=== PATIENT | female | born 1995 | race Caucasian/White ===

== ENCOUNTER 2017-12-18 15:59 | Emergency (ER) | payer OTHER ==
[2017-12-18] MEDS ORDERED: TYLENOL 325 MG PO STA (16:49)
[2017-12-18] MEDS ORDERED: PROVENTIL 2.5 MG/3 ML NEB IH ONE ×2 (16:49→16:59)
[2017-12-18] MEDS ORDERED: TYLENOL 325 MG ONE (16:56)
--- NOTE | 2017-12-18 17:16 | ERPHSYRPT ---
- History of Present Illness Time Seen by Provider: 12/18/17 16:40 Source: patient, family (maxime) Patient Subjective Stated Complaint: Pt states "I feel horrible. I have been coughing for the past two days." Triage Nursing Assessment: Pt alert and oriented x 3, skin pwd. pt ambulates without difficulty, able to speak in clear full sentences. Coughing, congested. Physician History: CC: fever HX: 22 y/o patient with fever, cough, nasal congestion, body aches, sore throat for 2 days. She was worried about flu. She is a smoker. No V/D. She feels miserable. No hx of asthma or lung disease. Timing/Duration: day(s) (2) Allergies/Adverse Reactions: No Known Drug Allergies Allergy (Verified 01/18/15 22:03) Hx Tetanus, Diphtheria Vaccination/Date Given: Yes Hx Influenza Vaccination/Date Given: No Hx Pneumococcal Vaccination/Date Given: No Immunizations Up to Date: Yes - Review of Systems Constitutional: Fever, Chills, Malaise Eyes: No Symptoms Ears, Nose, & Throat: Nose Congestion Respiratory: Cough, No Dyspnea Abdominal/Gastrointestinal: No Vomiting, No Diarrhea Skin: No Rash Neurological: Headache, No Focal Weakness, No Parasthesia All Other Systems: Reviewed and Negative - Past Medical History Pertinent Past Medical History: No Neurological History: No Pertinent History ENT History: No Pertinent History Cardiac History: No Pertinent History Respiratory History: No Pertinent History Endocrine Medical History: No Pertinent History Musculoskeletal History: No Pertinent History GI Medical History: No Pertinent History History: No Pertinent History Psycho-Social History: No Pertinent History Female Reproductive Disorders: No Pertinent History - Past Surgical History Past Surgical History: No Neuro Surgical History: No Pertinent History Cardiac: No Pertinent History Respiratory: No Pertinent History Gastrointestinal: No Pertinent History Genitourinary: No Pertinent History Musculoskeletal: No Pertinent History Female Surgical History: No Pertinent History - Social History Smoking Status: Current every day smoker How long have you smoked: 8 years Exposure to second hand smoke: Yes Drug Use: none Patient Lives Alone: No - Female History Hx Last Menstrual Period: 11/15/2017 Hx Now: (HCG pending) - Nursing Vital Signs Nursing Vital Signs: Initial Vital Signs Pulse Rate 108 H 12/18/17 16:26 Respiratory Rate 20 12/18/17 16:26 Blood Pressure 133/78 12/18/17 16:26 O2 Sat by Pulse Oximetry 98 12/18/17 16:26 Pain Scale Pain Intensity 4 - Physical Exam General Appearance: alert Eye Exam: PERRL/EOMI Ears, Nose, Throat Exam: moist mucous membranes, pharyngeal erythema, No tonsillar exudate Neck Exam: normal inspection, non-tender, supple Respiratory Exam: normal breath sounds, lungs clear Cardiovascular Exam: regular rate/rhythm, tachycardia, No murmur Gastrointestinal/Abdomen Exam: soft, No tenderness, No distention Back Exam: normal inspection, No CVA tenderness Neurologic Exam: alert, oriented x 3, 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, 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, sensation nml, No motor deficits Skin Exam: warm, dry, No rash SpO2 Interpretation: normal SpO2: 100 Oxygen Delivery: Room Air - Course Nursing assessment & vital signs reviewed: Yes - Radiology Exams cxr X-ray Interpretation: Interpreted by me, No Pneumonia Ordered Tests: Active Orders 24 hr Category Date Time Status Clean Catch Urine Specimen STAT Care 12/18/17 16:48 Active CHEST 2 VIEWS (PA AND LAT) Stat Exams 12/18/17 16:49 Taken CULTURE,URINE Stat Lab 12/18/17 17:30 Received HCG,QUALITATIVE URINE Stat Lab 12/18/17 16:48 Completed UA W/ MICROSCOPIC Stat Lab 12/18/17 17:30 Completed Respiratory Nebulizer STAT RT 12/18/17 16:49 Completed Medication Summary Discontinued Medications Generic Name Dose Route Start Last Admin Trade Name Freq PRN Reason Stop Dose Admin Acetaminophen 975 mg 12/18/17 16:49 12/18/17 16:57 Tylenol 325 Mg PO 12/18/17 16:50 975 mg STAT STA Administration Acetaminophen Confirm 12/18/17 16:56 Tylenol 325 Mg Administered 12/18/17 16:57 Dose 975 mg .ROUTE .STK-MED ONE Albuterol Sulfate 2.5 mg 12/18/17 16:49 12/18/17 17:01 Proventil 2.5 Mg/3 Ml Neb IH 12/18/17 16:50 2.5 mg STAT ONE Administration Albuterol Sulfate Confirm 12/18/17 16:59 Proventil 2.5 Mg/3 Ml Neb Administered 12/18/17 17:00 Dose 2.5 mg IH .STK-MED ONE Lab/Rad Data: Laboratory Results 12/18/17 12/18/17 Range/Units 17:30 16:48 Ur Collection Type CCMS Urine Color YELLOW (YELLOW) Urine Appearance HAZY (CLEAR) Urine pH 6.0 (5-6) Ur Specific [place] 1.020 (1.005-1.025) Urine Protein NEGATIVE (Negative) Urine Ketones TRACE (NEGATIVE) Urine Blood 50 (0-5) Nestor/ul Urine Nitrite NEGATIVE (NEGATIVE) Urine Bilirubin NEGATIVE (NEGATIVE) Urine Urobilinogen 8 (0-1) mg/dL Ur Leukocyte Esterase TRACE (NEGATIVE) Urine Microscopic RBC 5-10 (0-2) /HPF Urine Microscopic WBC 0-2 (0-5) /HPF Ur Epithelial Cells MODERATE (FEW) /HPF Urine Bacteria FEW (NEGATIVE) /HPF Urine Culture Reflexed YES (NO) Urine Glucose NEGATIVE (NEGATIVE) mg/dL Urine HCG, Qual NEGATIVE (Negative) Specimen Received 12-18-17 1815 - Progress Progress Note: 12/18/17 18:25 She is taking po fluids. She has influenza like syndrome. Fever better with APAP. Discussed tamiflu pros and cons and she decided against. Will release with flu instructions. Counseled pt/family regarding: lab results, diagnosis, need for follow-up, rad results, smoking cessation - Departure Time of Disposition: 18:26 Departure Disposition: Home Clinical Impression: Influenza-like syndrome Condition: Stable Critical Care Time: No Referrals: SAURABH CASTAÑEDA MD [Primary Care Provider] - Instructions: Flu, Adult (DC) Additional Instructions: UPPER RESPIRATORY INFECTIONS 1. The signs and symptoms of a cold may last up to 10 days. These illnesses are due to viruses which are not treatable with antibiotics. 2. The following suggestions can aid in recovery and to minimize symptoms: A. Increase fluid intake. B. Acetaminophen or Ibuprofen as directed. C. Avoid smoking environments as this will increase the risk of developing pneumonia. D. For children, may use a cool mist vaporizer in the child's room. 3. Contact your Family Physician if you note: A. Persisten fever >103 for more than 3 days B. Breathing difficulty C. Productive cough of yellow/green sputum D. Illness greater than 7 days E. Persistent vomiting F. Stiff neck Rx albuterol MDI. Rx ibuprofen. Return for problems or concerns. Prescriptions: Ibuprofen 600 mg PO Q6H PRN PRN #24 tablet PRN Reason: Pain Albuterol Sulfate [Albuterol Sulfate Hfa] 2 puff IH Q4-6HPRN PRN #1 [id number] PRN Reason: cough or wheeze
[2017-12-18 18:16] LABS: Appearance HAZY (CLEAR); Glucose NEGATIVE (NEGATIVE); Ketones TRACE (NEGATIVE); Leukocyte Esterase TRACE (NEGATIVE); Nitrite NEGATIVE (NEGATIVE); Protein,Urine Dip NEGATIVE (Negative)
[2017-12-18 18:17] LABS: Bacteria FEW /HPF (NEGATIVE); Bilirubin NEGATIVE (NEGATIVE); Blood 50 Ery/ul (0-5); Epithelial Cells MODERATE /HPF (FEW); Urobilinogen 8 mg/dL (0-1); WBC 0-2 /HPF (0-5)
[2017-12-18 18:26] VITALS: BP 110/70; PULSE 89
[2017-12-18 18:28] VITALS: O2SAT 100
--- NOTE | 2017-12-19 08:49 | XRAY ---
Indication: Fever, cough, and flu. Comparison: January 18, 2015. PA/lateral chest again demonstrates normal heart and lungs. Bony thorax intact with mild pectus excavatum deformity.
== END 2017-12-18 18:35 | disposition home or self-care (01) ==
LOC: ED 15:59
DX: J11.1 Influenza due to unidentified influenza virus with other respiratory manifestations (principal)
CPT/HCPCS: 71046; 81000; 84703; 87086; 94150; 94640; 99284; A9270-GY

== ENCOUNTER 2019-04-17 04:56 | Emergency (ER) | payer MEDICAID, OTHER ==
[2019-04-17] MEDS ORDERED: Zofran 4 MG/2 ML VIAL ONE (05:14)
[2019-04-17] MEDS ORDERED: Sodium Chloride 0.9% 1000 ML 1,000 ML IV STA ×2 (05:15→07:25)
[2019-04-17] MEDS ORDERED: Pepcid 20 MG VIAL IV ONE ×2 (05:15→05:20)
[2019-04-17] MEDS ORDERED: Hydromorphone 1 mg/ml Ampule IV ONE ×2 (05:15→06:15)
[2019-04-17] MEDS ORDERED: Zofran 4 MG/2 ML VIAL IV ONE (05:15)
--- NOTE | 2019-04-17 05:16 | ERPHSYRPT ---
- History of Present Illness Historian: patient, family Exam Limitations: no limitations Patient Subjective Stated Complaint: pt states she woke up with abd pain tonight. states she has been having pain off and on this week and was seen in the er at [facility] several days ago Triage Nursing Assessment: pt alert and oriented, asnwers questions approp. pt ambulate from wheelchair to stretcher with no dificulty. respirations nonlabored. pt tearful and restless in bed. holding abd on lt side. bowel sounds present in all 4 quads. Timing/Duration: day(s) (several) Activities at Onset: none Quality: sharpness, stabbing Abdominal Pain Onset Location: LLQ Severity of Pain-Max: moderate Severity of Pain-Current: moderate Modifying Factors: Improves With: vomiting Associated Symptoms: nausea, vomiting, other (vaginal bleeding) Previous symptoms: same symptoms as today, recently seen Hx Tetanus, Diphtheria Vaccination/Date Given: Yes Hx Influenza Vaccination/Date Given: No Hx Pneumococcal Vaccination/Date Given: No Immunizations Up to Date: Yes <SHALOM MEJIA - Last Filed: 04/17/19 06:54> <DELMIS ALARCON - Last Filed: 04/17/19 09:41> - History of Present Illness Time Seen by Provider: 04/17/19 05:15 Physician History: 23 y/o white female presents with sudden onset of 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 pt had similar sx approx 8 to 9 days ago and seen that same day at [facility] ED. pt was told she had fluid around her uterus at that time based on ct scan abd/pelvis findings. pts pain at that time was bilat lower quadrant pain. this am is just left side. pt was 12 days late for her lmp and she is now having vaginal bleeding. pt has associated nausea and vomiting. (SHALOM MEJIA) Allergies/Adverse Reactions: No Known Drug Allergies Allergy (Verified 04/17/19 05:17) - Review of Systems Constitutional: No Symptoms Eyes: No Symptoms Ears, Nose, & Throat: No Symptoms Respiratory: No Symptoms Cardiac: No Symptoms Abdominal/Gastrointestinal: Abdominal Pain (llq), Nausea, Vomiting, No Diarrhea Genitourinary Symptoms: Vaginal Bleeding Musculoskeletal: No Symptoms Skin: No Symptoms Neurological: No Symptoms Psychological: No Symptoms Endocrine: No Symptoms Hematologic/Lymphatic: No Symptoms Immunological/Allergic: No Symptoms All Other Systems: Reviewed and Negative <SHALOM MEJIA - Last Filed: 04/17/19 06:54> - Past Medical History Pertinent Past Medical History: No Neurological History: No Pertinent History ENT History: No Pertinent History Cardiac History: No Pertinent History Respiratory History: No Pertinent History Endocrine Medical History: No Pertinent History Musculoskeletal History: No Pertinent History GI Medical History: No Pertinent History History: No Pertinent History Psycho-Social History: No Pertinent History Female Reproductive Disorders: No Pertinent History - Past Surgical History Past Surgical History: No Neuro Surgical History: No Pertinent History Cardiac: No Pertinent History Respiratory: No Pertinent History Gastrointestinal: No Pertinent History Genitourinary: No Pertinent History Musculoskeletal: No Pertinent History Female Surgical History: No Pertinent History - Social History Smoking Status: Current every day smoker How long have you smoked: 8 years Exposure to second hand smoke: Yes Drug Use: none Patient Lives Alone: No - Female History Hx Last Menstrual Period: current Hx Now: No <SHALOM MEJIA - Last Filed: 04/17/19 06:54> - Physical Exam General Appearance: moderate distress, alert, anxiety, thin Eye Exam: PERRL/EOMI, eyes nml inspection Ears, Nose, Throat Exam: normal ENT inspection, moist mucous membranes Neck Exam: normal inspection, non-tender, supple, full range of motion Respiratory Exam: normal breath sounds, lungs clear, airway intact, No chest tenderness, No respiratory distress Cardiovascular Exam: regular rate/rhythm, normal heart sounds, normal peripheral pulses Gastrointestinal/Abdomen Exam: soft, normal bowel sounds, tenderness (left lower quadrant), guarding, No rebound Pelvic Exam: not done Rectal Exam: not done Back Exam: normal inspection, normal range of motion, No CVA tenderness, No vertebral tenderness Extremity Exam: normal inspection, normal range of motion, pelvis stable Neurologic Exam: alert, oriented x 3, 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, 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 Tiny right adnexal free fluid without visualization of ovary. Remaining left ovary and uterus sonographically unremarkable..) <DELMIS ALARCON FRANKLIN - Last Filed: 04/17/19 09:41> Ordered Tests: Active Orders 24 hr Category Date Time Status Clean Catch Urine Specimen STAT Care 04/17/19 05:58 Active IV Insertion STAT Care 04/17/19 05:15 Active OB <14 WKS 1ST GESTATION [US] Stat Exams 04/17/19 06:51 Completed AMYLASE Stat Lab 04/17/19 05:15 Completed CBC W DIFF Stat Lab 04/17/19 05:15 Completed CMP Stat Lab 04/17/19 05:15 Completed HCG QUALITATIVE,SERUM Stat Lab 04/17/19 05:15 Completed HCG, Quantitative (Inhouse) Stat Lab 04/17/19 05:30 Completed LIPASE Stat Lab 04/17/19 05:15 Completed Lactic Acid Stat Lab 04/17/19 05:20 Completed UA W/RFX UR CULTURE Stat Lab 04/17/19 05:50 Completed Urine Triage Profile Stat Lab 04/17/19 05:30 Completed Medication Summary Discontinued Medications Generic Name Dose Route Start Last Admin Trade Name Freq PRN Reason Stop Dose Admin Famotidine 20 mg 04/17/19 05:15 04/17/19 05:34 Pepcid 20 Mg Vial IV 04/17/19 05:16 20 mg STAT ONE Administration Famotidine Confirm 04/17/19 05:20 Pepcid 20 Mg Vial Administered 04/17/19 05:21 Dose 20 mg IV .STK-MED ONE Hydromorphone HCl 1 mg 04/17/19 05:15 04/17/19 05:34 Hydromorphone 1 Mg/Ml Ampule IV 04/17/19 05:16 1 mg STAT ONE Administration Hydromorphone HCl Confirm 04/17/19 05:20 Hydromorphone 1 Mg/Ml Ampule Administered 04/17/19 05:21 Dose 1 mg .ROUTE .STK-MED ONE Hydromorphone HCl 0.5 mg 04/17/19 06:15 04/17/19 06:18 Hydromorphone 1 Mg/Ml Ampule IV 04/17/19 06:16 0.5 mg STAT ONE Administration Hydromorphone HCl Confirm 04/17/19 06:17 Hydromorphone 1 Mg/Ml Ampule Administered 04/17/19 06:18 Dose 1 mg .ROUTE .STK-MED ONE Sodium Chloride 1,000 mls @ 999 mls/hr 04/17/19 05:15 04/17/19 09:29 Sodium Chloride 0.9% 1000 Ml IV 04/17/19 06:15 Infused .Q1H1M STA Infusion Sodium Chloride Confirm 04/17/19 05:20 Sodium Chloride 0.9% 1000 Ml Administered 04/17/19 05:21 Dose 1,000 mls @ ud .ROUTE .STK-MED ONE Sodium Chloride 1,000 mls @ 999 mls/hr 04/17/19 07:25 04/17/19 09:29 Sodium Chloride 0.9% 1000 Ml IV 04/17/19 08:25 Infused .Q1H1M STA Infusion Sodium Chloride Confirm 04/17/19 07:26 Sodium Chloride 0.9% 1000 Ml Administered 04/17/19 07:27 Dose 1,000 mls @ ud .ROUTE .STK-MED ONE Ondansetron HCl Confirm 04/17/19 05:14 Zofran 4 Mg/2 Ml Vial Administered 04/17/19 05:15 Dose 4 mg .ROUTE .STK-MED ONE Ondansetron HCl 4 mg 04/17/19 05:15 04/17/19 05:34 Zofran 4 Mg/2 Ml Vial IV 04/17/19 05:16 4 mg STAT ONE Administration Lab/Rad Data: Laboratory Result Diagrams 04/17/19 05:15 04/17/19 05:15 Laboratory Results 04/17/19 04/17/19 04/17/19 Range/Units 07:30 07:20 05:50 WBC (4.0-10.5) K/mm3 RBC (4.1-5.4) M/mm3 Hgb (12.0-16.0) gm/dl Hct (35-47) % MCV (78-100) fl MCH (26-32) pg MCHC (32-36) g/dl RDW (11.5-14.0) % Plt Count (150-450) K/mm3 MPV (6-9.5) fl Gran % (36.0-66.0) % Eos # (Auto) (0-0.5) Absolute Lymphs (auto) (1.0-4.6) Absolute Monos (auto) (0.0-1.3) Lymphocytes % (24.0-44.0) % Monocytes % (0.0-12.0) % Eosinophils % (0.00-5.0) % Basophils % (0.0-0.4) % Absolute Granulocytes (1.4-6.9) Basophils # (0-0.4) Sodium (137-145) mmol/L Potassium (3.5-5.1) mmol/L Chloride (98-107) mmol/L Carbon Dioxide (22-30) mmol/L Anion Gap (5-15) MEQ/L BUN (7-17) mg/dL Creatinine (0.52-1.04) mg/dL Estimated GFR ML/MIN Glucose (74-106) mg/dL Lactic Acid (0.4-2.0) Calcium (8.4-10.2) mg/dL Total Bilirubin (0.2-1.3) mg/dL AST (14-36) U/L ALT (0-35) U/L Alkaline Phosphatase (38-126) U/L Serum Total Protein (6.3-8.2) g/dL Albumin (3.5-5.0) g/dL Amylase (30-110) U/L Lipase (23-300) U/L Beta HCG, Quant mIU/ml Serum , Qual (Negative) Urine Color YELLOW (YELLOW) Urine Appearance SLIGHTLY CLOUDY (CLEAR) Urine pH 6.0 (5-6) Ur Specific [place] 1.017 (1.005-1.025) Urine Protein NEGATIVE (Negative) Urine Ketones TRACE (NEGATIVE) Urine Blood LARGE (0-5) Nestor/ul Urine Nitrite NEGATIVE (NEGATIVE) Urine Bilirubin NEGATIVE (NEGATIVE) Urine Urobilinogen NEGATIVE (0-1) mg/dL Ur Leukocyte Esterase NEGATIVE (NEGATIVE) Urine WBC (Auto) 6-10 (0-5) /HPF Urine RBC (Auto) 0-2 (0-2) /HPF U Epithel Cells (Auto) FEW (FEW) /HPF Urine Bacteria (Auto) RARE (NEGATIVE) /HPF Urine Mucus (Auto) MODERATE (NEGATIVE) /HPF Urine Culture Reflexed NO (NO) Urine Glucose NEGATIVE (NEGATIVE) mg/dL Urine Opiates Level (NEGATIVE) Ur Methadone (NEGATIVE) Urine Barbiturates (NEGATIVE) Ur Phencyclidine (PCP) (NEGATIVE) Urine Amphetamine (NEGATIVE) U Benzodiazepine Level (NEGATIVE) Urine Cocaine (NEGATIVE) Urine Marijuana (THC) (NEGATIVE) Ur Chlamydia DNA Probe NEGATIVE (NEGATIVE) Urine GC DNA Probe NEGATIVE (NEGATIVE) Slides for Path Review ABO Group B Rh Factor POSITIVE Antibody Screen NEGATIVE (NEGATIVE) 04/17/19 04/17/19 04/17/19 Range/Units 05:30 05:30 05:20 WBC (4.0-10.5) K/mm3 RBC (4.1-5.4) M/mm3 Hgb (12.0-16.0) gm/dl Hct (35-47) % MCV (78-100) fl MCH (26-32) pg MCHC (32-36) g/dl RDW (11.5-14.0) % Plt Count (150-450) K/mm3 MPV (6-9.5) fl Gran % (36.0-66.0) % Eos # (Auto) (0-0.5) Absolute Lymphs (auto) (1.0-4.6) Absolute Monos (auto) (0.0-1.3) Lymphocytes % (24.0-44.0) % Monocytes % (0.0-12.0) % Eosinophils % (0.00-5.0) % Basophils % (0.0-0.4) % Absolute Granulocytes (1.4-6.9) Basophils # (0-0.4) Sodium (137-145) mmol/L Potassium (3.5-5.1) mmol/L Chloride (98-107) mmol/L Carbon Dioxide (22-30) mmol/L Anion Gap (5-15) MEQ/L BUN (7-17) mg/dL Creatinine (0.52-1.04) mg/dL Estimated GFR ML/MIN Glucose (74-106) mg/dL Lactic Acid 1.0 (0.4-2.0) Calcium (8.4-10.2) mg/dL Total Bilirubin (0.2-1.3) mg/dL AST (14-36) U/L ALT (0-35) U/L Alkaline Phosphatase (38-126) U/L Serum Total Protein (6.3-8.2) g/dL Albumin (3.5-5.0) g/dL Amylase (30-110) U/L Lipase (23-300) U/L Beta HCG, Quant 1479.6 mIU/ml Serum , Qual (Negative) Urine Color (YELLOW) Urine Appearance (CLEAR) Urine pH (5-6) Ur Specific [place] (1.005-1.025) Urine Protein (Negative) Urine Ketones (NEGATIVE) Urine Blood (0-5) Nestor/ul Urine Nitrite (NEGATIVE) Urine Bilirubin (NEGATIVE) Urine Urobilinogen (0-1) mg/dL Ur Leukocyte Esterase (NEGATIVE) Urine WBC (Auto) (0-5) /HPF Urine RBC (Auto) (0-2) /HPF U Epithel Cells (Auto) (FEW) /HPF Urine Bacteria (Auto) (NEGATIVE) /HPF Urine Mucus (Auto) (NEGATIVE) /HPF Urine Culture Reflexed (NO) Urine Glucose (NEGATIVE) mg/dL Urine Opiates Level NEGATIVE (NEGATIVE) Ur Methadone NEGATIVE (NEGATIVE) Urine Barbiturates NEGATIVE (NEGATIVE) Ur Phencyclidine (PCP) NEGATIVE (NEGATIVE) Urine Amphetamine POSITIVE (NEGATIVE) U Benzodiazepine Level NEGATIVE (NEGATIVE) Urine Cocaine NEGATIVE (NEGATIVE) Urine Marijuana (THC) POSITIVE (NEGATIVE) Ur Chlamydia DNA Probe (NEGATIVE) Urine GC DNA Probe (NEGATIVE) Slides for Path Review ABO Group Rh Factor Antibody Screen (NEGATIVE) 04/17/19 04/17/19 04/17/19 Range/Units 05:15 05:15 05:15 WBC 15.2 H (4.0-10.5) K/mm3 RBC 4.23 (4.1-5.4) M/mm3 Hgb 12.7 (12.0-16.0) gm/dl Hct 36.7 (35-47) % MCV 86.8 (78-100) fl MCH 30.0 (26-32) pg MCHC 34.6 (32-36) g/dl RDW 12.5 (11.5-14.0) % Plt Count 378 (150-450) K/mm3 MPV 9.4 (6-9.5) fl Gran % 64.3 (36.0-66.0) % Eos # (Auto) 0.18 (0-0.5) Absolute Lymphs (auto) 3.65 (1.0-4.6) Absolute Monos (auto) 1.54 H (0.0-1.3) Lymphocytes % 24.1 (24.0-44.0) % Monocytes % 10.2 (0.0-12.0) % Eosinophils % 1.2 (0.00-5.0) % Basophils % 0.2 (0.0-0.4) % Absolute Granulocytes 9.75 H (1.4-6.9) Basophils # 0.03 (0-0.4) Sodium 140 (137-145) mmol/L Potassium 3.5 (3.5-5.1) mmol/L Chloride 104 (98-107) mmol/L Carbon Dioxide 24 (22-30) mmol/L Anion Gap 15.0 (5-15) MEQ/L BUN 18 H (7-17) mg/dL Creatinine 0.61 (0.52-1.04) mg/dL Estimated GFR > 60.0 ML/MIN Glucose 103 (74-106) mg/dL Lactic Acid (0.4-2.0) Calcium 10.0 (8.4-10.2) mg/dL Total Bilirubin 1.30 (0.2-1.3) mg/dL AST 20 (14-36) U/L ALT 14 (0-35) U/L Alkaline Phosphatase 60 (38-126) U/L Serum Total Protein 8.2 (6.3-8.2) g/dL Albumin 4.7 (3.5-5.0) g/dL Amylase 40 (30-110) U/L Lipase 71 (23-300) U/L Beta HCG, Quant mIU/ml Serum , Qual POSITIVE (Negative) Urine Color (YELLOW) Urine Appearance (CLEAR) Urine pH (5-6) Ur Specific [place] (1.005-1.025) Urine Protein (Negative) Urine Ketones (NEGATIVE) Urine Blood (0-5) Nestor/ul Urine Nitrite (NEGATIVE) Urine Bilirubin (NEGATIVE) Urine Urobilinogen (0-1) mg/dL Ur Leukocyte Esterase (NEGATIVE) Urine WBC (Auto) (0-5) /HPF Urine RBC (Auto) (0-2) /HPF U Epithel Cells (Auto) (FEW) /HPF Urine Bacteria (Auto) (NEGATIVE) /HPF Urine Mucus (Auto) (NEGATIVE) /HPF Urine Culture Reflexed (NO) Urine Glucose (NEGATIVE) mg/dL Urine Opiates Level (NEGATIVE) Ur Methadone (NEGATIVE) Urine Barbiturates (NEGATIVE) Ur Phencyclidine (PCP) (NEGATIVE) Urine Amphetamine (NEGATIVE) U Benzodiazepine Level (NEGATIVE) Urine Cocaine (NEGATIVE) Urine Marijuana (THC) (NEGATIVE) Ur Chlamydia DNA Probe (NEGATIVE) Urine GC DNA Probe (NEGATIVE) Slides for Path Review YES ABO Group Rh Factor Antibody Screen (NEGATIVE) <SHALOM MEJIA - Last Filed: 04/17/19 06:54> - Progress Progress: improved <DELMIS ALARCON - Last Filed: 04/17/19 09:41> - Progress Progress Note: 04/17/19 06:03 pts urine test on 04/08/19 was negative. today serum test is positive. 04/17/19 06:[address] alarcon. transfer care to him. reviewed pt hx, condition, lab results. vaginal u/s pending. he accepts pt. (SHALOM MEJIA) 04/17/19 09:31 This is a 23-year-old white female initially seen by Dr. Mejia with complaint of left lower quadrant pain since last night patient has been having some vaginal bleeding she apparently had been seen approximately a week and a half ago at [facility] for similar pain however at that time it was bilaterally Past medical history is negative past surgical history is negative Patient's labs urine drug screen positive amphetamines positive THC Patient's quantitative hCG of 1479 Patient's white count of 15.2 hemoglobin 12.7 hematocrit 36.7 platelets 378 chemistry sodium 140 potassium 3.5 chloride 104 bicarbonate 24 BUN 18 creatinine 0.061 Amylase 40 lipase 71 lactate 1.0 urinalysis specific gravity 1.017 pH 6.0 there are 6-10 white cells per high-power field 0-2 red cells per high-power field nitrites are negative Patient's pelvic ultrasound impression 1 negative her uterine . Tiny right adnexal free fluid without visualization of the ovary. Remaining left ovary and uterus sonographically unremarkable body of the techs shows that there is an endometrial stripe measuring 1 cm there is no endometrial cavity mass or fluid collection. Left ovary measures 3.1x3.5x3.1 cm with normal follicular cysts and color Doppler flow right ovary not seen. There is a tiny right adnexal free fluid but no suspicious adnexal mass Patient has received IV saline in the emergency room also had received hydromorphone. Will plan to discharge patient. Impression 1 abdominal pain left lower quadrant 2. Vaginal bleeding 3. Positive test. (DELMIS ALARCON) <SHALOM MEJIA - Last Filed: 04/17/19 06:54> - Departure Departure Disposition: Home Critical Care Time: No <DELMIS ALARCON - Last Filed: 04/17/19 09:41> - Departure Clinical Impression: Vaginal bleeding, Positive test Abdominal pain Qualifiers: Abdominal location: left lower quadrant Qualified Code(s): R10.32 - Left lower quadrant pain Condition: Fair Referrals: SAURABH CASTAÑEDA MD [Primary Care Provider] - Additional Instructions: Return home. Plenty of fluids. clear fluids 24-48 hours if abdominal pain. Tylenol every 4 hours as needed for pain. Followup with your family call today and schedule followup appointment. You will need followup. Return for acute distress or for severe symptoms.
[2019-04-17] MEDS ORDERED: Sodium Chloride 0.9% 1000 ML 1,000 ML ONE ×2 (05:20→07:26)
[2019-04-17] MEDS ORDERED: Hydromorphone 1 mg/ml Ampule ONE ×2 (05:20→06:17)
[2019-04-17 05:36] LABS: BASOPHIL % 0.2 % (0.0-0.4); Basophil (Absolute #) 0.03 (0-0.4); Eosinophil % 1.2 % (0.00-5.0); Eosinophil (Absolute #) 0.18 (0-0.5); Granulocyte Absolute (ANC) 9.75 (1.4-6.9); Granulocytes % 64.3 % (36.0-66.0); Hematocrit 36.7 % (35-47); Hemoglobin 12.7 gm/dl (12.0-16.0); Lymphocyte (Absolute #) 3.65 (1.0-4.6); Lymphocytes % 24.1 % (24.0-44.0); Mean Cell Volume 86.8 fl (78-100); Mean Corpuscular Hgb Concent. 34.6 g/dl (32-36); Mean Platelet Volume 9.4 fl (6-9.5); Monocyte (Absolute #) 1.54 (0.0-1.3); Monocytes % 10.2 % (0.0-12.0); Platelet Count 378 K/mm3 (150-450); Red Blood Count 4.23 M/mm3 (4.1-5.4); Red Cell Distribution Width 12.5 % (11.5-14.0); White Blood Count 15.2 K/mm3 (4.0-10.5)
[2019-04-17 05:41] LABS: ALBUMIN 4.7 g/dL (3.5-5.0); ALKALINE PHOSPHATASE 60 U/L (38-126); AMYLASE 40 U/L (30-110); BLOOD UREA NITROGEN 18 mg/dL (7-17); CHLORIDE 104 mmol/L (98-107); Carbon Dioxide 24 mmol/L (22-30); Creatinine 1 0.61 mg/dL (0.52-1.04); Glucose 103 mg/dL (74-106); LIPASE 71 U/L (23-300); Potassium 3.5 mmol/L (3.5-5.1); SGOT/AST 20 U/L (14-36); SGPT/ALT 14 U/L (0-35); SODIUM 140 mmol/L (137-145); Total Protein 8.2 g/dL (6.3-8.2)
[2019-04-17 05:57] LABS: Appearance SLIGHTLY CLOUDY (CLEAR); Bacteria RARE /HPF (NEGATIVE); Bilirubin NEGATIVE (NEGATIVE); Blood LARGE Ery/ul (0-5); Epithelial Cells FEW /HPF (FEW); Glucose NEGATIVE (NEGATIVE); Ketones TRACE (NEGATIVE); Leukocyte Esterase NEGATIVE (NEGATIVE); Mucus MODERATE /HPF (NEGATIVE); Nitrite NEGATIVE (NEGATIVE); Protein,Urine Dip NEGATIVE (Negative); RBC 0-2 /HPF (0-2); Specific Gravity 1.017 (1.005-1.025); Urobilinogen NEGATIVE mg/dL (0-1)
[2019-04-17 06:26] LABS: Barbiturate,Urine NEGATIVE (NEGATIVE); Benzodiazepine,Urine NEGATIVE (NEGATIVE); Cocaine,Urine NEGATIVE (NEGATIVE); Methadone,Urine NEGATIVE (NEGATIVE); Opiate,Urine NEGATIVE (NEGATIVE); PCP,Urine NEGATIVE (NEGATIVE); THC,Urine POSITIVE (NEGATIVE)
[2019-04-17 06:52] LABS: Amphetamine,Urine POSITIVE (NEGATIVE)
[2019-04-17 08:22] LABS: ABO TYPING B; Antibody Screen NEGATIVE (NEGATIVE); RH TYPING POSITIVE
[2019-04-17 09:25] LABS: Slide Review 1 YES
[2019-04-17 09:28] LABS: CHLAMYDIA URINE NEGATIVE (NEGATIVE); GC URINE NEGATIVE (NEGATIVE)
--- NOTE | 2019-04-17 09:29 | XRAY ---
Indication: Left lower quadrant pain. Vaginal bleeding. Positive test. Two-dimensional transabdominal pelvic sonogram performed. Comparison: None Uterus anteverted measuring 6.5 x 3.6 x 5.0 cm. No focal solid/cystic mass. Endometrial stripe measures 1 cm. No endometrial cavity mass or fluid collection. Left ovary measures 3.1 x 3.5 x 3.1 cm with normal follicular cyst and color Doppler flow. Right ovary not seen.. Tiny right adnexa free fluid but no suspicious adnexal mass. Impression: Negative intrauterine . Tiny right adnexa free fluid without visualization of ovary. Remaining left ovary and uterus sonographically unremarkable.
[2019-04-17 09:52] VITALS: BP 122/88; PULSE 64; O2SAT 100
== END 2019-04-17 09:50 | disposition home or self-care (01) ==
LOC: ED 04:56
DX: R10.32 Left lower quadrant pain (principal); N93.9 Abnormal uterine and vaginal bleeding, unspecified; Z32.01 Encounter for pregnancy test, result positive
CPT/HCPCS: 36000; 36415; 76801; 80053; 80307; 81001; 81025; 82150; 83605; 83690; 84702; 85025; 86850; 86900; 86901; 87491; 87591; 96360; 96361; 96374; 96375; 96376; 99284; J1170; J2405

== ENCOUNTER 2019-12-10 12:00 | Day surgery (SDC) | payer MEDICAID ==
[2019-12-10] MEDS ORDERED: Sodium Chloride 0.9% 1000 ML 1,000 ML IV STA (12:49)
[2019-12-10] MEDS ORDERED: MORPHINE SULFATE 2 MG INJ IV ONE (12:49)
[2019-12-10] MEDS ORDERED: Sodium Chloride 0.9% 1000 ML 1,000 ML ONE (13:02)
[2019-12-10] MEDS ORDERED: MORPHINE SULFATE 2 MG INJ ONE (13:02)
[2019-12-10 13:05] LABS: Appearance CLEAR (CLEAR); Bilirubin NEGATIVE (NEGATIVE); Blood NEGATIVE Ery/ul (0-5); Epithelial Cells RARE /HPF (FEW); Glucose NEGATIVE (NEGATIVE); Ketones NEGATIVE (NEGATIVE); Leukocyte Esterase NEGATIVE (NEGATIVE); Mucus SLIGHT /HPF (NEGATIVE); Nitrite NEGATIVE (NEGATIVE); Protein,Urine Dip NEGATIVE (Negative); Specific Gravity 1.014 (1.005-1.025); Urobilinogen NEGATIVE mg/dL (0-1)
[2019-12-10 13:05] LABS: Hematocrit 39.1 % (35-47); Hemoglobin 13.2 gm/dl (12.0-16.0); Mean Cell Volume 89.3 fl (78-100); Mean Corpuscular Hemoglobin 30.1 pg (26-32); Mean Corpuscular Hgb Concent. 33.8 g/dl (32-36); Platelet Count 332 K/mm3 (150-450); Red Blood Count 4.38 M/mm3 (4.1-5.4); Red Cell Distribution Width 13.3 % (11.5-14.0); White Blood Count 15.9 K/mm3 (4.0-10.5)
[2019-12-10 13:09] LABS: ALBUMIN 5.2 g/dL (3.5-5.0); ALKALINE PHOSPHATASE 43 U/L (38-126); ANION GAP 14.1 MEQ/L (5-15); BLOOD UREA NITROGEN 11 mg/dL (7-17); CHLORIDE 103 mmol/L (98-107); Calcium 9.4 mg/dL (8.4-10.2); Carbon Dioxide 25 mmol/L (22-30); Creatinine 1 0.49 mg/dL (0.52-1.04); Glucose 93 mg/dL (74-106); LIPASE 96 U/L (23-300); Potassium 3.7 mmol/L (3.5-5.1); SGOT/AST 24 U/L (14-36); SGPT/ALT 16 U/L (0-35); SODIUM 139 mmol/L (137-145); Total Protein 8.9 g/dL (6.3-8.2)
[2019-12-10 13:32] LABS: BAND 4 % (0.0-2.0); Lymphocytes 17 % (24-44); Monocyte 1 % (0.0-12.0); Neutrophils 78 % (36.0-66.0); Platelet Estimate NORMAL (NORMAL); Total Cells Counted 100; Toxic Granulation 1+
--- NOTE | 2019-12-10 13:46 | XRAY ---
Indication: Pelvic pain. 2-dimensional transvaginal pelvic sonogram performed. Comparison: None Uterus anteverted measuring 6.2 x 3.2 x 4.0 cm. Endometrial stripe measures 3.1 mm. No endometrial cavity mass or fluid collection. Right ovary measures 4.6 x 3.7 x 3.6 cm with normal color perfusion. There is a 3.6 cm cyst with internal debris layering. Left ovary measures 2.4 x 1.7 x 2.4 cm with a gestational sac with presence of a pole and heart tones 101 bpm favoring ectopic . Mean sac diameter is 1.02 cm corresponding to 5 weeks 4 days. Mean crown-rump length measures 0.37 cm corresponding to 6 weeks 0 days. No free fluid. Impression: 1. Left ovary ectopic measuring 5 weeks 6 days as detailed. Correlate with beta-hCG. 2. 3.6 cm complex right ovary cyst. 3. Uterus unremarkable. Comment: Immediate telephone report was given to the ordering clinician.
[2019-12-10] MEDS ORDERED: Sensorcaine 0.25% 10 ML ONE (13:49)
[2019-12-10] MEDS ORDERED: Lactated Ringers 1,000 ML IV ONE ×2 (13:49→13:59)
[2019-12-10] MEDS ORDERED: MORPHINE SULFATE 4 MG INJ ONE (13:59)
[2019-12-10] MEDS ORDERED: MORPHINE SULFATE 4 MG INJ IV ONE (13:59)
--- NOTE | 2019-12-10 14:05 | ERPHSYRPT ---
- History of Present Illness Time Seen by Provider: 12/10/19 12:44 Historian: patient Exam Limitations: no limitations Patient Subjective Stated Complaint: Abdominal pain Triage Nursing Assessment: Patient ambulated back to ED crying in pain. Patient A+O X 3. Patient's skin pink, warm and dry. Patient complains of sudden onset of lower abdominal pain at 1000 that has increasingly gotten worse. Patient states pain is sharp/stabbing constant pain to lower abdomen. Abdomen noted to be round and distended with BS X 4. Patient complains of N/V. Timing/Duration: today, constant, sudden, worse Activities at Onset: none Quality: aching Abdominal Pain Onset Location: other (Pain across lower pelvis) Pain Radiation: no radiation Severity of Pain-Max: moderate Severity of Pain-Current: moderate Modifying Factors: Improves With: nothing Associated Symptoms: diarrhea, nausea, vomiting Previous symptoms: no prior history Allergies/Adverse Reactions: No Known Drug Allergies Allergy (Verified 12/10/19 12:11) Home Medications: No Reportable Medications [No Reported Medications] 12/10/19 [History] Hx Tetanus, Diphtheria Vaccination/Date Given: Yes Hx Influenza Vaccination/Date Given: No Hx Pneumococcal Vaccination/Date Given: No Immunizations Up to Date: Yes - Review of Systems Constitutional: No Fever, No Chills Eyes: No Symptoms Ears, Nose, & Throat: No Symptoms Respiratory: No Cough, No Dyspnea Cardiac: No Chest Pain, No Edema, No Syncope Abdominal/Gastrointestinal: No Abdominal Pain, No Nausea, No Vomiting, No Diarrhea Genitourinary Symptoms: No Dysuria Musculoskeletal: No Back Pain, No Neck Pain Skin: No Rash Neurological: No Dizziness, No Focal Weakness, No Sensory Changes Psychological: No Symptoms Endocrine: No Symptoms All Other Systems: Reviewed and Negative - Past Medical History Pertinent Past Medical History: No Neurological History: No Pertinent History ENT History: No Pertinent History Cardiac History: No Pertinent History Respiratory History: No Pertinent History Endocrine Medical History: No Pertinent History Musculoskeletal History: No Pertinent History GI Medical History: No Pertinent History History: No Pertinent History Psycho-Social History: No Pertinent History Female Reproductive Disorders: No Pertinent History - Past Surgical History Past Surgical History: No Neuro Surgical History: No Pertinent History Cardiac: No Pertinent History Respiratory: No Pertinent History Gastrointestinal: No Pertinent History Genitourinary: No Pertinent History Musculoskeletal: No Pertinent History Female Surgical History: No Pertinent History - Social History Smoking Status: Current every day smoker How long have you smoked: years Exposure to second hand smoke: Yes Drug Use: none Patient Lives Alone: No - Female History Hx Last Menstrual Period: 2 weeks ago Hx Now: No - Nursing Vital Signs Nursing Vital Signs: Initial Vital Signs Temperature 97.6 F 12/10/19 12:11 Pulse Rate 64 12/10/19 12:11 Respiratory Rate 18 12/10/19 12:11 Blood Pressure 130/74 12/10/19 12:11 O2 Sat by Pulse Oximetry 100 12/10/19 12:11 Pain Scale Pain Intensity 2 - Physical Exam General Appearance: no apparent distress, alert Eye Exam: PERRL/EOMI, eyes nml inspection Ears, Nose, Throat Exam: normal ENT inspection, pharynx normal, moist mucous membranes Neck Exam: normal inspection, non-tender, supple, full range of motion Respiratory Exam: normal breath sounds, lungs clear, No respiratory distress Cardiovascular Exam: regular rate/rhythm, normal heart sounds Gastrointestinal/Abdomen Exam: soft, other (TTP across lower pelvis. ), No tenderness, No mass Pelvic Exam: not done (Patient declined pelvic exam) Back Exam: normal inspection, normal range of motion, No CVA tenderness, No vertebral tenderness Extremity Exam: normal inspection, normal range of motion, pelvis stable Neurologic Exam: alert, oriented x 3, cooperative, normal mood/affect, nml cerebellar function, sensation nml, No motor deficits Skin Exam: normal color, warm, dry SpO2 Interpretation: normal SpO2: 100 O2 Delivery: Room Air - Radiology Ultrasound Exam Pelvis Ultrasound: tele radiology report (Left ovarian ectopic, 5 weeks, 6 days. ) Ordered Tests: Active Orders 24 hr Category Date Time Status Code Status Order ROUTINE Care 12/10/19 13:42 Active PELVIC [US] Stat Exams 12/10/19 12:50 Completed CBC W DIFF Stat Lab 12/10/19 12:55 Completed CMP Stat Lab 12/10/19 12:55 Completed HCG, Quantitative (Inhouse) Stat Lab 12/10/19 13:41 Ordered HCG,QUALITATIVE URINE Stat Lab 12/10/19 12:45 Completed LIPASE Stat Lab 12/10/19 12:55 Completed Manual Differential NC Stat Lab 12/10/19 12:55 Completed UA W/RFX UR CULTURE Stat Lab 12/10/19 12:45 Completed Transfer Order Routine Transfer 12/10/19 Ordered Medication Summary Discontinued Medications Generic Name Dose Route Start Last Admin Trade Name Michael PRN Reason Stop Dose Admin Bupivacaine HCl Confirm 12/10/19 13:49 Sensorcaine 0.25% 10 Ml Administered 12/10/19 13:50 Dose 10 ml .ROUTE .STK-MED ONE Citric Acid/Sodium Citrate Confirm 12/10/19 14:10 Bicitra 30 Ml Cup Administered 12/10/19 14:11 Dose 30 ml .ROUTE .STK-MED ONE Sodium Chloride 1,000 mls @ 999 mls/hr 12/10/19 12:49 12/10/19 13:04 Sodium Chloride 0.9% 1000 Ml IV 12/10/19 13:49 999 mls/hr .Q1H1M STA Administration Sodium Chloride Confirm 12/10/19 13:02 Sodium Chloride 0.9% 1000 Ml Administered 12/10/19 13:03 Dose 1,000 mls @ ud .ROUTE .STK-MED ONE Lactated Ringer's Confirm 12/10/19 13:49 Lactated Ringers Administered 12/10/19 13:50 Dose 1,000 mls @ ud IV .STK-MED ONE Lactated Ringer's Confirm 12/10/19 13:59 Lactated Ringers Administered 12/10/19 14:00 Dose 1,000 mls @ ud IV .STK-MED ONE Morphine Sulfate 2 mg 12/10/19 12:49 12/10/19 13:06 Morphine Sulfate 2 Mg Inj IV 12/10/19 12:50 2 mg STAT ONE Administration Morphine Sulfate Confirm 12/10/19 13:02 Morphine Sulfate 2 Mg Inj Administered 12/10/19 13:03 Dose 2 mg .ROUTE .STK-MED ONE Morphine Sulfate 4 mg 12/10/19 13:59 12/10/19 14:00 Morphine Sulfate 4 Mg Inj IV 12/10/19 14:00 4 mg STAT ONE Administration Morphine Sulfate Confirm 12/10/19 13:59 Morphine Sulfate 4 Mg Inj Administered 12/10/19 14:00 Dose 4 mg .ROUTE .STK-MED ONE Lab/Rad Data: Laboratory Result Diagrams 12/10/19 12:55 12/10/19 12:55 Laboratory Results 12/10/19 12/10/19 12/10/19 Range/Units 12:55 12:55 12:45 WBC 15.9 H (4.0-10.5) K/mm3 RBC 4.38 (4.1-5.4) M/mm3 Hgb 13.2 (12.0-16.0) gm/dl Hct 39.1 (35-47) % MCV 89.3 (78-100) fl MCH 30.1 (26-32) pg MCHC 33.8 (32-36) g/dl RDW 13.3 (11.5-14.0) % Plt Count 332 (150-450) K/mm3 MPV 10.0 (7.5-11.0) fl Segmented Neutrophils 78 H (36.0-66.0) % Band Neutrophils 4 H (0.0-2.0) % Lymphocytes (Manual) 17 L (24-44) % Monocytes (Manual) 1 (0.0-12.0) % Toxic Granulation 1+ Platelet Estimate NORMAL (NORMAL) RBC Morphology NORMAL Sodium 139 (137-145) mmol/L Potassium 3.7 (3.5-5.1) mmol/L Chloride 103 (98-107) mmol/L Carbon Dioxide 25 (22-30) mmol/L Anion Gap 14.1 (5-15) MEQ/L BUN 11 (7-17) mg/dL Creatinine 0.49 L (0.52-1.04) mg/dL Estimated GFR > 60.0 ML/MIN Glucose 93 (74-106) mg/dL Calcium 9.4 (8.4-10.2) mg/dL Total Bilirubin 1.10 (0.2-1.3) mg/dL AST 24 (14-36) U/L ALT 16 (0-35) U/L Alkaline Phosphatase 43 (38-126) U/L Serum Total Protein 8.9 H (6.3-8.2) g/dL Albumin 5.2 H (3.5-5.0) g/dL Lipase 96 (23-300) U/L Urine Color (YELLOW) Urine Appearance (CLEAR) Urine pH (5-6) Ur Specific [place] (1.005-1.025) Urine Protein (Negative) Urine Ketones (NEGATIVE) Urine Blood (0-5) Nestor/ul Urine Nitrite (NEGATIVE) Urine Bilirubin (NEGATIVE) Urine Urobilinogen (0-1) mg/dL Ur Leukocyte Esterase (NEGATIVE) Urine WBC (Auto) (0-5) /HPF Urine RBC (Auto) (0-2) /HPF U Epithel Cells (Auto) (FEW) /HPF Urine Bacteria (Auto) (NEGATIVE) /HPF Urine Mucus (Auto) (NEGATIVE) /HPF Urine Culture Reflexed (NO) Urine Glucose (NEGATIVE) mg/dL Urine HCG, Qual POSITIVE (Negative) 12/10/19 Range/Units 12:45 WBC (4.0-10.5) K/mm3 RBC (4.1-5.4) M/mm3 Hgb (12.0-16.0) gm/dl Hct (35-47) % MCV (78-100) fl MCH (26-32) pg MCHC (32-36) g/dl RDW (11.5-14.0) % Plt Count (150-450) K/mm3 MPV (7.5-11.0) fl Segmented Neutrophils (36.0-66.0) % Band Neutrophils (0.0-2.0) % Lymphocytes (Manual) (24-44) % Monocytes (Manual) (0.0-12.0) % Toxic Granulation Platelet Estimate (NORMAL) RBC Morphology Sodium (137-145) mmol/L Potassium (3.5-5.1) mmol/L Chloride (98-107) mmol/L Carbon Dioxide (22-30) mmol/L Anion Gap (5-15) MEQ/L BUN (7-17) mg/dL Creatinine (0.52-1.04) mg/dL Estimated GFR ML/MIN Glucose (74-106) mg/dL Calcium (8.4-10.2) mg/dL Total Bilirubin (0.2-1.3) mg/dL AST (14-36) U/L ALT (0-35) U/L Alkaline Phosphatase (38-126) U/L Serum Total Protein (6.3-8.2) g/dL Albumin (3.5-5.0) g/dL Lipase (23-300) U/L Urine Color YELLOW (YELLOW) Urine Appearance CLEAR (CLEAR) Urine pH 5.0 (5-6) Ur Specific [place] 1.014 (1.005-1.025) Urine Protein NEGATIVE (Negative) Urine Ketones NEGATIVE (NEGATIVE) Urine Blood NEGATIVE (0-5) Nestor/ul Urine Nitrite NEGATIVE (NEGATIVE) Urine Bilirubin NEGATIVE (NEGATIVE) Urine Urobilinogen NEGATIVE (0-1) mg/dL Ur Leukocyte Esterase NEGATIVE (NEGATIVE) Urine WBC (Auto) NONE (0-5) /HPF Urine RBC (Auto) NONE (0-2) /HPF U Epithel Cells (Auto) RARE (FEW) /HPF Urine Bacteria (Auto) NONE (NEGATIVE) /HPF Urine Mucus (Auto) SLIGHT (NEGATIVE) /HPF Urine Culture Reflexed NO (NO) Urine Glucose NEGATIVE (NEGATIVE) mg/dL Urine HCG, Qual (Negative) - Progress Progress Note: 12/10/19 14:15 Patient has an ectopic with a leukocytosis and bandemia. Dr. Wray will administer antibiotics. Will see patient in: other (Dr. Vaca evaluated patient at for surgery. ) Counseled pt/family regarding: lab results, diagnosis, rad results - Departure Departure Disposition: Home (Discharge to OP surgery under the care of Dr. Wray. Patient to be DC home from surgery), In-patient Admission (Patient will go to OR for ectopic . Possible DC post op) Clinical Impression: Ectopic , Ovarian cyst, Leukocytosis, Bandemia Condition: Good Critical Care Time: No Referrals: DOCTOR,NO FAMILY [Primary Care Provider] -
[2019-12-10] MEDS ORDERED: BICITRA 30 ML CUP ONE (14:10)
[2019-12-10] MEDS ORDERED: Zemuron 100 MG/10 ML ONE (14:24)
[2019-12-10] MEDS ORDERED: Quelicin Fliptop 200 MG/10 ML ONE (14:24)
[2019-12-10] MEDS ORDERED: DIPRIVAN 200 MG/20 ML IV ONE (14:24)
[2019-12-10] MEDS ORDERED: SUBLIMAZE 100 MCG/2 ML ONE ×2 (14:24→15:39)
[2019-12-10 14:57] LABS: ABO TYPING B; Antibody Screen NEGATIVE (NEGATIVE); RH TYPING POSITIVE
[2019-12-10] MEDS ORDERED: Compazine 10 MG/2 ML ONE (15:30)
[2019-12-10 16:18] LABS: Appearance CLEAR (CLEAR); Bilirubin NEGATIVE (NEGATIVE); Blood NEGATIVE Ery/ul (0-5); Glucose NEGATIVE (NEGATIVE); Ketones NEGATIVE (NEGATIVE); Leukocyte Esterase NEGATIVE (NEGATIVE); Nitrite NEGATIVE (NEGATIVE); Protein,Urine Dip NEGATIVE (Negative); Specific Gravity 1.005 (1.005-1.025); Urobilinogen NEGATIVE mg/dL (0-1)
[2019-12-10 16:47] VITALS: O2SAT 100
[2019-12-10 17:17] VITALS: BP 129/73; PULSE 77
--- NOTE | 2019-12-11 08:29 | OP ---
SURGERY DATE/TIME: 12/10/2019 1424 PREOPERATIVE DIAGNOSES: 1) Pelvic pain. 2) Left ectopic . POSTOPERATIVE DIAGNOSES: 1) Left ampullary ectopic . 2) Pelvic 3) Hemoperitoneum. 4) Right ovarian cyst. PROCEDURES: 1) Laparoscopic left salpingectomy. 2) Lysis of pelvic adhesions. 3) Evacuation of hemoperitoneum. 4) Drainage of right ovarian cyst. SURGEON: Jose Alberto Wray D.O. RESEARCH QUALITY ASSURANCE SPECIALIST: Rom [facility] surgical services tech. ANESTHESIA: General. ESTIMATED BLOOD LOSS: Approximately 25 cc. Hemoperitoneum that was evacuated approximately 100 cc. COMPLICATIONS: None. INDICATIONS: The patient is taken to the operating room where at this point all the risks and benefits of the surgery were reviewed with the patient prior to procedure. The patient understood the risk of infection, bleeding, bowel injury, bladder injury, ureteral injury, possible oophorectomy, possible future ectopic that may be associated with the surgery however desires to have this procedure as a possible need to alleviate her current medical condition. DESCRIPTION OF PROCEDURE AND FINDINGS: At this point she was taken to the operating room where general anesthesia was obtained without difficulty. She was placed in supine position, given general anesthesia. She was prepped and draped in the usual sterile fashion. From this point a 5 mm incision was made approximately 1 to 2 cm above the umbilicus where a 5 mm trocar and sleeve were advanced under direct visualization where pneumoperitoneum was obtained with 4 liters of CO2 gas. An additional incision was made in left middle quadrant region where a 5 mm incision was made and a 5 mm trocar and sleeve were advanced under direct visualization as well. An additional incision was made approximately 2 cm above the symphysis pubis where an 11 mm incision is made and an 11 mm trocar and sleeve were advanced under direct visualization. A review of the patient's abdomen and pelvic area revealed her to have initially hemoperitoneum which was approximately 100 cc where suction and irrigation was used to suction the bloody fluid from her pelvic region in the cul-de-sac. Graspers were used to elevate the left adnexa where it appeared at the beginning of the ampullary region of the fallopian tube and extending out to the fimbriated end ectopic was located seeping bloody fluid from this site. From this point the LigaSure was then used where the grasper was used to elevate the left fallopian tube and was excised to the mesosalpinx and was done so without complication and hemostasis was obtained. There appeared to be some adhesions underneath on the posterior surface of the uterus to the bowel as well as significant filmy adhesions between the right adnexa and the posterior cervix of the uterus. Lysis of adhesions taken place and alleviating adhesions. The right adnexa was then subsequently lifted up and the cystic portion was then entered through electrocautery where the fluid was released. There appeared to be an approximately 5 x 4 cm simple cyst on the right side which was drained. From this point the EndoCatch bag was introduced through the 11 mm port site where the left fallopian tube was then inserted into the pouch and it was removed from the midline suprapubic region port and was done so without complication. From this point significant irrigation was made to the pelvic region as well as the abdomen where suction was taken place and there was no other bleeding that was noted in the pelvic region. The left ovary appeared to be within normal limits as well as the right ovary at this time after drainage and the uterus appeared to be within normal limits. From this point all instruments were then removed from the patient's abdominal region. The incisions were closed with 4-0 Monocryl suture. The patient was then taken out of anesthesia and the patient was then taken to the recovery room in stable condition. All instruments and laps were accounted for x2.
== END 2019-12-10 17:44 | disposition home or self-care (01) ==
LOC: ED 12:00 → SDC 14:33
PROVIDERS: ATTEND Obstetrics & Gynecology
DX: O00.102 Left tubal pregnancy without intrauterine pregnancy (principal); K66.1 Hemoperitoneum; N83.201 Unspecified ovarian cyst, right side
CPT/HCPCS: 36415; 58660; 58805; 76856; 80053; 81001; 83690; 84702; 84703; 85025; 86850; 86900; 86901; 87086; 88302; 96360; 96374; 96375; 96376; 99140; 99242; 99284; J0330; J2270; J2704; J3010; A9270-GY

== ENCOUNTER 2019-12-16 13:44 | Emergency (ER) | payer OTHER ==
--- NOTE | 2019-12-16 14:11 | ERPHSYRPT ---
- History of Present Illness Source: patient Exam Limitations: no limitations Patient Subjective Stated Complaint: Vaginal bleeding Triage Nursing Assessment: Patient ambulated back to ED and transferred self to bed. Patient complains of vaginal bleeding that started light yesterday and today has gotten a lot worse. Patient complains of lower abdominal pain 7/10 constant cramping with intermittent sharp pain. Patient had tubal last week and had a a Salpingectomy 12/10/18. Patient called Dr. Wray's office and was instructed to come to ED for eval. Physician History: As noted in triage. Timing/Duration: yesterday Activites at Onset: none Quality: cramping Onset Location: suprapubic Pain Radiation: none Severity of Pain-Max: moderate Severity of Pain-Current: moderate Prior abdominal problems: other (REcent left tube removal due to ectopic preg. 4 -5 days ago. ) Sexual intercourse history: non-contributory Modifying Factors: Improves With: movement Associated Symptoms: abdominal pain, other (vag bleed.) Allergies/Adverse Reactions: No Known Drug Allergies Allergy (Verified 12/16/19 13:59) Home Medications: No Reportable Medications [No Reported Medications] 12/10/19 [History] Hx Tetanus, Diphtheria Vaccination/Date Given: Yes Hx Influenza Vaccination/Date Given: No Hx Pneumococcal Vaccination/Date Given: No - Review of Systems Constitutional: No Fever, No Chills Eyes: No Symptoms Ears, Nose, & Throat: No Symptoms Respiratory: No Cough, No Dyspnea Cardiac: No Chest Pain, No Edema, No Syncope Abdominal/Gastrointestinal: Abdominal Pain, No Nausea, No Vomiting, No Diarrhea Genitourinary Symptoms: Vaginal Bleeding, No Dysuria Musculoskeletal: No Back Pain, No Neck Pain Skin: No Rash Neurological: No Dizziness, No Focal Weakness, No Sensory Changes Psychological: No Symptoms Endocrine: No Symptoms All Other Systems: Reviewed and Negative - Past Medical History Pertinent Past Medical History: No Neurological History: No Pertinent History ENT History: No Pertinent History Cardiac History: No Pertinent History Respiratory History: No Pertinent History Endocrine Medical History: No Pertinent History Musculoskeletal History: No Pertinent History GI Medical History: No Pertinent History History: No Pertinent History Psycho-Social History: No Pertinent History Female Reproductive Disorders: No Pertinent History - Past Surgical History Past Surgical History: No Neuro Surgical History: No Pertinent History Cardiac: No Pertinent History Respiratory: No Pertinent History Gastrointestinal: No Pertinent History Genitourinary: No Pertinent History Musculoskeletal: No Pertinent History Female Surgical History: Tubal Ligation - Social History Smoking Status: Current every day smoker How long have you smoked: years Exposure to second hand smoke: Yes Drug Use: marijuana Patient Lives Alone: No - Female History Hx Last Menstrual Period: 2 weeks ago Hx Now: No - Nursing Vital Signs Nursing Vital Signs: Initial Vital Signs Pulse Rate 112 H 12/16/19 13:59 Respiratory Rate 19 12/16/19 13:59 Blood Pressure 155/96 12/16/19 13:59 O2 Sat by Pulse Oximetry 100 12/16/19 13:59 Pain Scale Pain Intensity 7 - Physical Exam General Appearance: no apparent distress, alert Eye Exam: PERRL/EOMI, eyes nml inspection Ears, Nose, Throat Exam: normal ENT inspection, TMs normal, pharynx normal, moist mucous membranes Neck Exam: normal inspection, non-tender, supple, full range of motion Respiratory Exam: normal breath sounds, lungs clear, No respiratory distress Cardiovascular Exam: regular rate/rhythm, normal heart sounds, normal peripheral pulses Gastrointestinal/Abdomen Exam: soft, tenderness (lower abd), No mass, No guarding, No rebound Pelvic Exam: deferred, other (Pt declined.) Rectal Exam: deferred Back Exam: normal inspection, normal range of motion, No CVA tenderness, No vertebral tenderness Extremity Exam: normal inspection, normal range of motion, pelvis stable Neurologic Exam: alert, oriented x 3, cooperative, 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, normal mood/affect, sensation nml, No motor deficits Skin Exam: normal color, warm, dry Lymphatic Exam: No adenopathy SpO2: 100 - Course Nursing assessment & vital signs reviewed: Yes - Radiology Ultrasound Exam Pelvis Ultrasound: discussed w/radiologist, Other (post op changes, no acute findings) Ordered Tests: Active Orders 24 hr Category Date Time Status IV Insertion STAT Care 12/16/19 13:59 Active NPO (ED) STAT Care 12/16/19 13:59 Active Pelvic Exam Assist STAT Care 12/16/19 13:59 Active PELVIS TRANS VAGINAL [US] Stat Exams 12/16/19 14:00 Completed CBC W DIFF Stat Lab 12/16/19 14:10 Completed CMP Stat Lab 12/16/19 14:10 Completed CULTURE,URINE Stat Lab 12/16/19 14:07 Received PROTIME WITH INR Stat Lab 12/16/19 14:10 Completed PTT Stat Lab 12/16/19 14:10 Completed UA W/RFX UR CULTURE Stat Lab 12/16/19 14:07 Completed Medication Summary Discontinued Medications Generic Name Dose Route Start Last Admin Trade Name Michael PRN Reason Stop Dose Admin Hydrocodone Bitart/Acetaminophen Confirm 12/16/19 15:21 [place] 5/325 Mg Administered 12/16/19 15:22 Dose 1 tab .ROUTE .STK-MED ONE Oxycodone/Acetaminophen 1 tab 12/16/19 15:15 12/16/19 15:23 Percocet Tablet 5/325mg PO 12/16/19 15:16 1 tab STAT ONE Administration Oxycodone/Acetaminophen Confirm 12/16/19 15:23 Percocet Tablet 5/325mg Administered 12/16/19 15:24 Dose 1 tab .ROUTE .STK-MED ONE Lab/Rad Data: Laboratory Result Diagrams 12/16/19 14:10 12/16/19 14:10 Laboratory Results 12/16/19 12/16/19 12/16/19 Range/Units 14:10 14:10 14:10 WBC 10.6 H (4.0-10.5) K/mm3 RBC 4.26 (4.1-5.4) M/mm3 Hgb 12.7 (12.0-16.0) gm/dl Hct 37.1 (35-47) % MCV 87.1 (78-100) fl MCH 29.8 (26-32) pg MCHC 34.2 (32-36) g/dl RDW 13.0 (11.5-14.0) % Plt Count 369 (150-450) K/mm3 MPV 9.4 (7.5-11.0) fl Gran % 57.8 (36.0-66.0) % Eos # (Auto) 0.18 (0-0.5) Absolute Lymphs (auto) 3.03 (1.0-4.6) Absolute Monos (auto) 1.24 (0.0-1.3) Lymphocytes % 28.6 (24.0-44.0) % Monocytes % 11.7 (0.0-12.0) % Eosinophils % 1.7 (0.00-5.0) % Basophils % 0.2 (0.0-0.4) % Absolute Granulocytes 6.11 (1.4-6.9) Basophils # 0.02 (0-0.4) PT 12.9 H (9.95-12.35) SECONDS INR 1.14 (0.8-3.0) APTT 36.7 (25.3-37.0) SECONDS Sodium 139 (137-145) mmol/L Potassium 3.9 (3.5-5.1) mmol/L Chloride 102 (98-107) mmol/L Carbon Dioxide 26 (22-30) mmol/L Anion Gap 15.3 H (5-15) MEQ/L BUN 23 H (7-17) mg/dL Creatinine 0.71 (0.52-1.04) mg/dL Estimated GFR > 60.0 ML/MIN Glucose 80 (74-106) mg/dL Calcium 10.1 (8.4-10.2) mg/dL Total Bilirubin 2.20 H (0.2-1.3) mg/dL AST 29 (14-36) U/L ALT 19 (0-35) U/L Alkaline Phosphatase 45 (38-126) U/L Serum Total Protein 9.1 H (6.3-8.2) g/dL Albumin 5.2 H (3.5-5.0) g/dL Urine Color (YELLOW) Urine Appearance (CLEAR) Urine pH (5-6) Ur Specific [place] (1.005-1.025) Urine Protein (Negative) Urine Ketones (NEGATIVE) Urine Blood (0-5) Nestor/ul Urine Nitrite (NEGATIVE) Urine Bilirubin (NEGATIVE) Urine Urobilinogen (0-1) mg/dL Ur Leukocyte Esterase (NEGATIVE) Urine WBC (Auto) (0-5) /HPF Urine RBC (Auto) (0-2) /HPF U Epithel Cells (Auto) (FEW) /HPF Urine Bacteria (Auto) (NEGATIVE) /HPF Urine Culture Reflexed (NO) Urine Glucose (NEGATIVE) mg/dL 12/16/19 Range/Units 14:07 WBC (4.0-10.5) K/mm3 RBC (4.1-5.4) M/mm3 Hgb (12.0-16.0) gm/dl Hct (35-47) % MCV (78-100) fl MCH (26-32) pg MCHC (32-36) g/dl RDW (11.5-14.0) % Plt Count (150-450) K/mm3 MPV (7.5-11.0) fl Gran % (36.0-66.0) % Eos # (Auto) (0-0.5) Absolute Lymphs (auto) (1.0-4.6) Absolute Monos (auto) (0.0-1.3) Lymphocytes % (24.0-44.0) % Monocytes % (0.0-12.0) % Eosinophils % (0.00-5.0) % Basophils % (0.0-0.4) % Absolute Granulocytes (1.4-6.9) Basophils # (0-0.4) PT (9.95-12.35) SECONDS INR (0.8-3.0) APTT (25.3-37.0) SECONDS Sodium (137-145) mmol/L Potassium (3.5-5.1) mmol/L Chloride (98-107) mmol/L Carbon Dioxide (22-30) mmol/L Anion Gap (5-15) MEQ/L BUN (7-17) mg/dL Creatinine (0.52-1.04) mg/dL Estimated GFR ML/MIN Glucose (74-106) mg/dL Calcium (8.4-10.2) mg/dL Total Bilirubin (0.2-1.3) mg/dL AST (14-36) U/L ALT (0-35) U/L Alkaline Phosphatase (38-126) U/L Serum Total Protein (6.3-8.2) g/dL Albumin (3.5-5.0) g/dL Urine Color RED (YELLOW) Urine Appearance CLOUDY (CLEAR) Urine pH 6.0 (5-6) Ur Specific [place] 1.027 (1.005-1.025) Urine Protein 100 (Negative) Urine Ketones NEGATIVE (NEGATIVE) Urine Blood LARGE (0-5) Nestor/ul Urine Nitrite NEGATIVE (NEGATIVE) Urine Bilirubin NEGATIVE (NEGATIVE) Urine Urobilinogen 2 (0-1) mg/dL Ur Leukocyte Esterase NEGATIVE (NEGATIVE) Urine WBC (Auto) 6-10 (0-5) /HPF Urine RBC (Auto) >101 (0-2) /HPF U Epithel Cells (Auto) RARE (FEW) /HPF Urine Bacteria (Auto) FEW (NEGATIVE) /HPF Urine Culture Reflexed YES (NO) Urine Glucose NEGATIVE (NEGATIVE) mg/dL - Progress Progress: improved Air Movement: good Progress Note: 12/16/19 15:17 Pt declined pelvic exam in ER. Labs overall unremakable. US shows no acute findings. post op changes noted. pain med here and then DC home. 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 Blood Culture(s) Obtained: No Antibiotics given: No Counseled pt/family regarding: lab results, diagnosis, need for follow-up, rad results - Departure Departure Disposition: Home Clinical Impression: Post-operative pain, Vaginal bleeding Condition: Good Critical Care Time: No Referrals: DOCTOR,NO FAMILY [Primary Care Provider] - JOY WRAY DO [ACTIVE STAFF] - Instructions: Postoperative Pain (DC) Additional Instructions: Hydration. OTC meds for pain. Follow up with SLOT MACHINE REPAIRER as scheduled. Return to ER if worse. Forms: Work/School Release Form
[2019-12-16 14:22] LABS: Absolute Neutrophil Ct (ANC) 6.11 (1.4-6.9); BASOPHIL % 0.2 % (0.0-0.4); Basophil (Absolute #) 0.02 (0-0.4); Eosinophil % 1.7 % (0.00-5.0); Eosinophil (Absolute #) 0.18 (0-0.5); Hematocrit 37.1 % (35-47); Hemoglobin 12.7 gm/dl (12.0-16.0); Lymphocyte (Absolute #) 3.03 (1.0-4.6); Lymphocytes % 28.6 % (24.0-44.0); Mean Cell Volume 87.1 fl (78-100); Mean Corpuscular Hemoglobin 29.8 pg (26-32); Mean Corpuscular Hgb Concent. 34.2 g/dl (32-36); Mean Platelet Volume 9.4 fl (7.5-11.0); Monocyte (Absolute #) 1.24 (0.0-1.3); Monocytes % 11.7 % (0.0-12.0); Neutrophil % 57.8 % (36.0-66.0); Platelet Count 369 K/mm3 (150-450); Red Blood Count 4.26 M/mm3 (4.1-5.4); White Blood Count 10.6 K/mm3 (4.0-10.5)
[2019-12-16 14:38] LABS: INR 1.14 (0.8-3.0); PROTIME 12.9 SECONDS (9.95-12.35)
[2019-12-16 14:41] LABS: PTT 36.7 SECONDS (25.3-37.0)
[2019-12-16 14:42] LABS: ALBUMIN 5.2 g/dL (3.5-5.0); ALKALINE PHOSPHATASE 45 U/L (38-126); ANION GAP 15.3 MEQ/L (5-15); BLOOD UREA NITROGEN 23 mg/dL (7-17); CHLORIDE 102 mmol/L (98-107); Calcium 10.1 mg/dL (8.4-10.2); Carbon Dioxide 26 mmol/L (22-30); Creatinine 1 0.71 mg/dL (0.52-1.04); Glucose 80 mg/dL (74-106); Potassium 3.9 mmol/L (3.5-5.1); SGOT/AST 29 U/L (14-36); SGPT/ALT 19 U/L (0-35); SODIUM 139 mmol/L (137-145); Total Protein 9.1 g/dL (6.3-8.2)
[2019-12-16 14:53] LABS: Appearance CLOUDY (CLEAR); Bacteria FEW /HPF (NEGATIVE); Bilirubin NEGATIVE (NEGATIVE); Blood LARGE Ery/ul (0-5); Epithelial Cells RARE /HPF (FEW); Glucose NEGATIVE (NEGATIVE); Ketones NEGATIVE (NEGATIVE); Leukocyte Esterase NEGATIVE (NEGATIVE); Nitrite NEGATIVE (NEGATIVE); Protein,Urine Dip 100 (Negative); Specific Gravity 1.027 (1.005-1.025); Urobilinogen 2 mg/dL (0-1)
[2019-12-16 14:54] LABS: RBC >101 /HPF (0-2)
--- NOTE | 2019-12-16 15:01 | XRAY ---
Indication: Postop vaginal bleeding. Status post left ectopic tubal . Two-dimensional transvaginal pelvic sonogram performed. Comparison: December 10, 2019. Uterus again anteverted measuring 5.6 x 2.8 x 3.7 cm. Myometrium homogeneous in echogenicity. Endometrial stripe measures 2.8 mm. No endometrial cavity mass or fluid collection. Right ovary measures 2.0 x 1.5 x 2.1 cm and the left measures 2.2 x 2.1 x 1.4 cm. Normal color perfusion bilaterally. Previous left ectopic not seen consistent with surgery. Right ovary demonstrates smaller 1.6 x 1.8 x 1.2 cm cyst again with internal echoes. This cyst previously measured 3.6 cm. No free fluid. Impression: 1. Status post left ectopic excision. No complications. 2. Previous complex right ovary cyst appears smaller. 3. Remaining transvaginal pelvic sonogram is negative.
[2019-12-16 15:02] VITALS: BP 144/98; PULSE 76
[2019-12-16] MEDS ORDERED: PERCOCET TABLET 5/325MG PO ONE (15:15)
[2019-12-16 15:21] VITALS: O2SAT 100
[2019-12-16] MEDS ORDERED: NORCO 5/325 MG ONE (15:21)
[2019-12-16] MEDS ORDERED: PERCOCET TABLET 5/325MG ONE (15:23)
== END 2019-12-16 16:03 | disposition home or self-care (01) ==
LOC: ED 13:44
DX: O08.1 Delayed or excessive hemorrhage following ectopic and molar pregnancy (principal); G89.18 Other acute postprocedural pain
CPT/HCPCS: 36000; 36415; 76830; 80053; 81001; 85025; 85610; 85730; 87086; 99284; A9270-GY

== ENCOUNTER 2020-05-16 19:16 | Emergency (ER) | payer OTHER ==
[2020-05-16] MEDS ORDERED: Sodium Chloride 0.9% 1000 ML 1,000 ML IV STA (19:55)
[2020-05-16] MEDS ORDERED: Zofran 4 MG/2 ML VIAL IV ONE (19:55)
[2020-05-16] MEDS ORDERED: Hydromorphone 1 mg/ml Ampule IV ONE ×2 (19:55→22:05)
[2020-05-16] MEDS ORDERED: Hydromorphone 1 mg/ml Ampule ONE ×2 (20:07→22:05)
[2020-05-16] MEDS ORDERED: Zofran 4 MG/2 ML VIAL ONE (20:07)
[2020-05-16] MEDS ORDERED: Sodium Chloride 0.9% 1000 ML 1,000 ML ONE (20:07)
[2020-05-16 20:28] LABS: Appearance CLOUDY (CLEAR); Bacteria FEW /HPF (NEGATIVE); Bilirubin NEGATIVE (NEGATIVE); Blood MODERATE Ery/ul (0-5); Epithelial Cells FEW /HPF (FEW); Glucose NEGATIVE (NEGATIVE); Ketones NEGATIVE (NEGATIVE); Leukocyte Esterase TRACE (NEGATIVE); Mucus SLIGHT /HPF (NEGATIVE); Nitrite NEGATIVE (NEGATIVE); Protein,Urine Dip NEGATIVE (Negative); RBC 0-2 /HPF (0-2); Urobilinogen 4 mg/dL (0-1)
[2020-05-16 20:57] LABS: Absolute Neutrophil Ct (ANC) 6.74 (1.4-6.9); BASOPHIL % 0.3 % (0.0-0.4); Basophil (Absolute #) 0.03 (0-0.4); Eosinophil % 2.4 % (0.00-5.0); Eosinophil (Absolute #) 0.28 (0-0.5); Hematocrit 38.2 % (35-47); Lymphocyte (Absolute #) 3.57 (1.0-4.6); Lymphocytes % 30.4 % (24.0-44.0); Mean Cell Volume 87.4 fl (78-100); Mean Corpuscular Hemoglobin 29.7 pg (26-32); Mean Platelet Volume 9.9 fl (7.5-11.0); Monocyte (Absolute #) 1.13 (0.0-1.3); Monocytes % 9.6 % (0.0-12.0); Neutrophil % 57.3 % (36.0-66.0); Platelet Count 321 K/mm3 (150-450); Red Blood Count 4.37 M/mm3 (4.1-5.4); Red Cell Distribution Width 12.9 % (11.5-14.0); White Blood Count 11.8 K/mm3 (4.0-10.5)
[2020-05-16 21:07] LABS: INR 1.22 (0.8-3.0); PROTIME 13.8 SECONDS (9.95-12.35)
[2020-05-16 21:12] LABS: ALBUMIN 5.1 g/dL (3.5-5.0); ALKALINE PHOSPHATASE 48 U/L (38-126); AMYLASE 63 U/L (30-110); ANION GAP 12.9 MEQ/L (5-15); BLOOD UREA NITROGEN 19 mg/dL (7-17); CHLORIDE 108 mmol/L (98-107); Calcium 9.9 mg/dL (8.4-10.2); Carbon Dioxide 23 mmol/L (22-30); Creatinine 1 0.66 mg/dL (0.52-1.04); Glucose 92 mg/dL (74-106); LIPASE 71 U/L (23-300); Potassium 3.8 mmol/L (3.5-5.1); SGOT/AST 21 U/L (14-36); SGPT/ALT 13 U/L (0-35); SODIUM 140 mmol/L (137-145); Total Protein 8.7 g/dL (6.3-8.2)
--- NOTE | 2020-05-16 22:43 | ERPHSYRPT ---
- History of Present Illness Time Seen by Provider: 05/16/20 20:00 Patient Subjective Stated Complaint: pt states she has been having lower abd pain for the last 2 days states the last time she had pain like this she had a tubal in november. states she had some milky drainage from one of her incisions a few days ag and has been having some incont at times. Triage Nursing Assessment: pt alert and oriented, answers questions approp. pt ambualtory with steady gait noted. respirations nonlabored with lungs cta. abd soft and tender in pelvic area. bowel sounds noted x4. skin pink warm and dry. Physician History: Patient is a 24-year-old female who presents with abdominal pain which started 2 days ago in the lower abdomen she says the pain is similar to when she had a tubal in the past. She has a cyst over the right ovary which was removed in the past she denies any nausea vomiting or diarrhea no fever chills or sweats further questioning after some results were obtained shows that she has had some urinary urgency and frequency. Also complains of slight discharge from puncture wound from a previous laparoscopy Timing/Duration: day(s) (2) Activities at Onset: none Quality: burning, stabbing Abdominal Pain Onset Location: suprapubic Pain Radiation: no radiation Severity of Pain-Max: moderate Severity of Pain-Current: moderate Modifying Factors: Improves With: nothing Allergies/Adverse Reactions: No Known Drug Allergies Allergy (Verified 05/16/20 20:03) Hx Tetanus, Diphtheria Vaccination/Date Given: Yes Hx Influenza Vaccination/Date Given: No Hx Pneumococcal Vaccination/Date Given: No Immunizations Up to Date: Yes Travel Risk - International Travel Have you traveled outside of the country in past 3 weeks: No - Coronavirus Screening Are you exhibiting any of the following symptoms?: No Close contact with a COVID-19 positive Pt in past 14-21 Days: No - Review of Systems Constitutional: No Fever, No Chills Eyes: No Symptoms Ears, Nose, & Throat: No Symptoms Respiratory: No Cough, No Dyspnea Cardiac: No Chest Pain, No Edema, No Syncope Abdominal/Gastrointestinal: Abdominal Pain, No Nausea, No Vomiting, No Diarrhea Genitourinary Symptoms: Frequency, Incontinence, Urgency, No Dysuria Musculoskeletal: No Back Pain, No Neck Pain Skin: No Rash Neurological: No Dizziness, No Focal Weakness, No Sensory Changes Psychological: No Symptoms Endocrine: No Symptoms All Other Systems: Reviewed and Negative - Past Medical History Pertinent Past Medical History: No Neurological History: No Pertinent History ENT History: No Pertinent History Cardiac History: No Pertinent History Respiratory History: No Pertinent History Endocrine Medical History: No Pertinent History Musculoskeletal History: No Pertinent History GI Medical History: No Pertinent History History: No Pertinent History Psycho-Social History: No Pertinent History Female Reproductive Disorders: No Pertinent History - Past Surgical History Past Surgical History: Yes Neuro Surgical History: No Pertinent History Cardiac: No Pertinent History Respiratory: No Pertinent History Gastrointestinal: No Pertinent History Genitourinary: No Pertinent History Musculoskeletal: No Pertinent History Female Surgical History: Tubal Ligation Other Surgical History: tubal in november- took lt tube out, drained cyst on rt ovary - Social History Smoking Status: Current every day smoker How long have you smoked: 10yrs Exposure to second hand smoke: Yes Drug Use: none Patient Lives Alone: No - Female History Hx Last Menstrual Period: 04/29/20 Hx Now: No - Nursing Vital Signs Nursing Vital Signs: Initial Vital Signs Temperature 98.5 F 05/16/20 19:51 Pulse Rate 85 05/16/20 19:51 Respiratory Rate 18 05/16/20 19:51 Blood Pressure 132/96 05/16/20 19:51 O2 Sat by Pulse Oximetry 99 05/16/20 19:51 Pain Scale Pain Intensity 8 - Physical Exam General Appearance: no apparent distress, moderate distress, alert Eye Exam: PERRL/EOMI, eyes nml inspection Ears, Nose, Throat Exam: normal ENT inspection, pharynx normal, moist mucous membranes Neck Exam: normal inspection, non-tender, supple, full range of motion Respiratory Exam: normal breath sounds, lungs clear, No respiratory distress Cardiovascular Exam: regular rate/rhythm, normal heart sounds Gastrointestinal/Abdomen Exam: soft, normal bowel sounds, tenderness, No mass Back Exam: normal inspection, normal range of motion, No CVA tenderness, No vertebral tenderness Extremity Exam: normal inspection, normal range of motion, pelvis stable Neurologic Exam: alert, oriented x 3, cooperative, normal mood/affect, nml cerebellar function, sensation nml, No motor deficits Skin Exam: normal color, warm, dry SpO2 Interpretation: normal SpO2: 99 O2 Delivery: Room Air - Course Nursing assessment & vital signs reviewed: Yes Ordered Tests: Active Orders 24 hr Category Date Time Status IV Insertion STAT Care 05/16/20 19:55 Active ABDOMEN AND PELVIS W CONTRAST [CT] Stat Exams 05/16/20 19:56 Taken AMYLASE Stat Lab 05/16/20 20:30 Completed CBC W DIFF Stat Lab 05/16/20 20:30 Completed CMP Stat Lab 05/16/20 20:30 Completed CULTURE,URINE Stat Lab 05/16/20 20:00 Received HCG QUALITATIVE,SERUM Stat Lab 05/16/20 20:30 Completed LIPASE Stat Lab 05/16/20 20:30 Completed Lactic Acid Stat Lab 05/16/20 19:55 Completed PROTIME WITH INR Stat Lab 05/16/20 20:30 Completed UA W/RFX UR CULTURE Stat Lab 05/16/20 20:00 Completed Medication Summary Generic Name Dose Route Start Last Admin Trade Name Freq PRN Reason Stop Dose Admin Phenazopyridine HCl 200 mg 05/17/20 10:00 05/16/20 22:48 Pyridium 200 Mg PO 06/16/20 09:59 200 mg QID MAYO Administration Discontinued Medications Generic Name Dose Route Start Last Admin Trade Name Freq PRN Reason Stop Dose Admin Hydrocodone Bitart/Acetaminophen 2 tab 05/16/20 22:44 05/16/20 22:48 [place] 5/325 Mg PO 05/16/20 22:45 2 tab SENT HOME W/ PATIENT ONE Administration Hydrocodone Bitart/Acetaminophen Confirm 05/16/20 22:45 [place] 5/325 Mg Administered 05/16/20 22:46 Dose 2 tab .ROUTE .STK-MED ONE Hydromorphone HCl 1 mg 05/16/20 19:55 05/16/20 20:10 Hydromorphone 1 Mg/Ml Ampule IV 05/16/20 19:56 1 mg STAT ONE Administration Hydromorphone HCl Confirm 05/16/20 20:07 Hydromorphone 1 Mg/Ml Ampule Administered 05/16/20 20:08 Dose 1 mg .ROUTE .STK-MED ONE Hydromorphone HCl 1 mg 05/16/20 22:05 05/16/20 22:06 Hydromorphone 1 Mg/Ml Ampule IV 05/16/20 22:06 1 mg STAT ONE Administration Hydromorphone HCl Confirm 05/16/20 22:05 Hydromorphone 1 Mg/Ml Ampule Administered 05/16/20 22:06 Dose 1 mg .ROUTE .STK-MED ONE Sodium Chloride 1,000 mls @ 999 mls/hr 05/16/20 19:55 05/16/20 21:04 Sodium Chloride 0.9% 1000 Ml IV 05/16/20 20:55 Infused .Q1H1M STA Infusion Sodium Chloride Confirm 05/16/20 20:07 Sodium Chloride 0.9% 1000 Ml Administered 05/16/20 20:08 Dose 1,000 mls @ ud .ROUTE .STK-MED ONE Ondansetron HCl 4 mg 05/16/20 19:55 05/16/20 20:10 Zofran 4 Mg/2 Ml Vial IV 05/16/20 19:56 4 mg STAT ONE Administration Ondansetron HCl Confirm 05/16/20 20:07 Zofran 4 Mg/2 Ml Vial Administered 05/16/20 20:08 Dose 4 mg .ROUTE .STK-MED ONE Promethazine HCl 25 mg 05/16/20 22:53 05/16/20 22:55 Phenergan 25 Mg Inj IM 05/16/20 22:54 25 mg STAT ONE Administration Promethazine HCl Confirm 05/16/20 22:53 Phenergan 25 Mg Inj Administered 05/16/20 22:54 Dose 25 mg .ROUTE .STK-MED ONE Trimethoprim/Sulfamethoxazole 1 tab 05/16/20 22:44 05/16/20 22:48 Bactrim Ds Tablet PO 05/16/20 22:45 1 tab STAT STA Administration Trimethoprim/Sulfamethoxazole Confirm 05/16/20 22:45 Bactrim Ds Tablet Administered 05/16/20 22:46 Dose 1 tab PO .STK-MED ONE Lab/Rad Data: Laboratory Result Diagrams 05/16/20 20:30 05/16/20 20:30 Laboratory Results 05/16/20 05/16/20 05/16/20 Range/Units 20:30 20:30 20:30 WBC (4.0-10.5) K/mm3 RBC (4.1-5.4) M/mm3 Hgb (12.0-16.0) gm/dl Hct (35-47) % MCV (78-100) fl MCH (26-32) pg MCHC (32-36) g/dl RDW (11.5-14.0) % Plt Count (150-450) K/mm3 MPV (7.5-11.0) fl Gran % (36.0-66.0) % Eos # (Auto) (0-0.5) Absolute Lymphs (auto) (1.0-4.6) Absolute Monos (auto) (0.0-1.3) Lymphocytes % (24.0-44.0) % Monocytes % (0.0-12.0) % Eosinophils % (0.00-5.0) % Basophils % (0.0-0.4) % Absolute Granulocytes (1.4-6.9) Basophils # (0-0.4) PT 13.8 H (9.95-12.35) SECONDS INR 1.22 (0.8-3.0) Sodium 140 (137-145) mmol/L Potassium 3.8 (3.5-5.1) mmol/L Chloride 108 H (98-107) mmol/L Carbon Dioxide 23 (22-30) mmol/L Anion Gap 12.9 (5-15) MEQ/L BUN 19 H (7-17) mg/dL Creatinine 0.66 (0.52-1.04) mg/dL Estimated GFR > 60.0 ML/MIN Glucose 92 (74-106) mg/dL Lactic Acid (0.4-2.0) Calcium 9.9 (8.4-10.2) mg/dL Total Bilirubin 2.10 H (0.2-1.3) mg/dL AST 21 (14-36) U/L ALT 13 (0-35) U/L Alkaline Phosphatase 48 (38-126) U/L Serum Total Protein 8.7 H (6.3-8.2) g/dL Albumin 5.1 H (3.5-5.0) g/dL Amylase 63 (30-110) U/L Lipase 71 (23-300) U/L Serum , Qual NEGATIVE (Negative) Urine Color (YELLOW) Urine Appearance (CLEAR) Urine pH (5-6) Ur Specific [place] (1.005-1.025) Urine Protein (Negative) Urine Ketones (NEGATIVE) Urine Blood (0-5) Nestor/ul Urine Nitrite (NEGATIVE) Urine Bilirubin (NEGATIVE) Urine Urobilinogen (0-1) mg/dL Ur Leukocyte Esterase (NEGATIVE) Urine WBC (Auto) (0-5) /HPF Urine RBC (Auto) (0-2) /HPF U Epithel Cells (Auto) (FEW) /HPF Urine Bacteria (Auto) (NEGATIVE) /HPF Urine Mucus (Auto) (NEGATIVE) /HPF Urine Culture Reflexed (NO) Urine Glucose (NEGATIVE) mg/dL 05/16/20 05/16/20 05/16/20 Range/Units 20:30 20:00 19:55 WBC 11.8 H (4.0-10.5) K/mm3 RBC 4.37 (4.1-5.4) M/mm3 Hgb 13.0 (12.0-16.0) gm/dl Hct 38.2 (35-47) % MCV 87.4 (78-100) fl MCH 29.7 (26-32) pg MCHC 34.0 (32-36) g/dl RDW 12.9 (11.5-14.0) % Plt Count 321 (150-450) K/mm3 MPV 9.9 (7.5-11.0) fl Gran % 57.3 (36.0-66.0) % Eos # (Auto) 0.28 (0-0.5) Absolute Lymphs (auto) 3.57 (1.0-4.6) Absolute Monos (auto) 1.13 (0.0-1.3) Lymphocytes % 30.4 (24.0-44.0) % Monocytes % 9.6 (0.0-12.0) % Eosinophils % 2.4 (0.00-5.0) % Basophils % 0.3 (0.0-0.4) % Absolute Granulocytes 6.74 (1.4-6.9) Basophils # 0.03 (0-0.4) PT (9.95-12.35) SECONDS INR (0.8-3.0) Sodium (137-145) mmol/L Potassium (3.5-5.1) mmol/L Chloride (98-107) mmol/L Carbon Dioxide (22-30) mmol/L Anion Gap (5-15) MEQ/L BUN (7-17) mg/dL Creatinine (0.52-1.04) mg/dL Estimated GFR ML/MIN Glucose (74-106) mg/dL Lactic Acid 0.5 (0.4-2.0) Calcium (8.4-10.2) mg/dL Total Bilirubin (0.2-1.3) mg/dL AST (14-36) U/L ALT (0-35) U/L Alkaline Phosphatase (38-126) U/L Serum Total Protein (6.3-8.2) g/dL Albumin (3.5-5.0) g/dL Amylase (30-110) U/L Lipase (23-300) U/L Serum , Qual (Negative) Urine Color YELLOW (YELLOW) Urine Appearance CLOUDY (CLEAR) Urine pH 6.0 (5-6) Ur Specific [place] 1.030 (1.005-1.025) Urine Protein NEGATIVE (Negative) Urine Ketones NEGATIVE (NEGATIVE) Urine Blood MODERATE (0-5) Nestor/ul Urine Nitrite NEGATIVE (NEGATIVE) Urine Bilirubin NEGATIVE (NEGATIVE) Urine Urobilinogen 4 (0-1) mg/dL Ur Leukocyte Esterase TRACE (NEGATIVE) Urine WBC (Auto) 6-10 (0-5) /HPF Urine RBC (Auto) 0-2 (0-2) /HPF U Epithel Cells (Auto) FEW (FEW) /HPF Urine Bacteria (Auto) FEW (NEGATIVE) /HPF Urine Mucus (Auto) SLIGHT (NEGATIVE) /HPF Urine Culture Reflexed YES (NO) Urine Glucose NEGATIVE (NEGATIVE) mg/dL - Progress Progress: improved - Departure Departure Disposition: Home Clinical Impression: Cystitis Condition: Stable Critical Care Time: No Referrals: DOCTOR,NO FAMILY [Primary Care Provider] - Instructions: Urinary Tract Infection, Adult (DC) Prescriptions: Hydrocodone/APAP 5-325 Tab^^^ [[place] 5-325 Tablet^^^] 1 tab PO Q6HPRN PRN #10 tablet MDD 6 PRN Reason: Pain Sulfamethoxazole/Trimethoprim [Bactrim Ds Tablet] 1 each PO BID 10 Days #20 tablet Phenazopyridine HCl 200 mg [Pyridium 200 mg] 200 mg PO TID #6 tablet
[2020-05-16] MEDS ORDERED: NORCO 5/325 MG PO ONE (22:44)
[2020-05-16] MEDS ORDERED: BACTRIM DS TABLET PO STA (22:44)
[2020-05-16] MEDS ORDERED: BACTRIM DS TABLET PO ONE (22:45)
[2020-05-16] MEDS ORDERED: NORCO 5/325 MG ONE (22:45)
[2020-05-16] MEDS ORDERED: PYRIDIUM 200 MG ONE (22:46)
[2020-05-16] MEDS ORDERED: Phenergan 25 MG INJ ONE (22:53)
[2020-05-16] MEDS ORDERED: Phenergan 25 MG INJ IM ONE (22:53)
[2020-05-16] MEDS ORDERED: ROCEPHIN 1 Gm-D5w 50 ml Bag** 1 G/50 ML IVPB IV STA (23:00)
[2020-05-16] MEDS ORDERED: ROCEPHIN 1 Gm-D5w 50 ml Bag** 1 G/50 ML IVPB IV ONE (23:03)
[2020-05-16 23:55] VITALS: BP 128/76; PULSE 86; O2SAT 98
[2020-05-17] MEDS ORDERED: PYRIDIUM 200 MG PO SCH (10:00)
--- NOTE | 2020-05-17 21:21 | XRAY ---
Exam: CT of the abdomen and pelvis with IV contrast from 05/16/2020. Total DLP: 238.09 mGy-cm Comparison: CT of the abdomen and pelvis with IV contrast from 04/08/2019. Indication: 24-year-old female with lower abdominal pain and pelvic tenderness worsening over the past 2 days, moderate hematuria; history of tubal and November, with surgical removal of fallopian tube. Technique: Post-IV contrast axial images were obtained through the abdomen and pelvis during automated IV injection of 80 ML's of Isovue 370 contrast material. No oral contrast was given. Reconstructed coronal and sagittal images were created and reviewed. Findings: The visualized lung bases are clear. No posterior pleural fluid is seen. The liver and spleen appear unremarkable. The gallbladder is mildly distended and no dense calcifications are seen within it. No biliary duct distention is seen. The pancreas and adrenal glands appear unremarkable. The patient is quite thin with a paucity of intraperitoneal fat. The kidneys function well on the delayed images without evidence of mass or hydronephrosis. No renal calculi are seen. The kidneys are of normal size and shape. No hydroureter is seen on the delayed images. A mild amount of excreted contrast is seen layering posteriorly within the urinary bladder. No gross abnormality is seen. The abdominal aorta appears of normal diameter. No abnormal retroperitoneal lymphadenopathy is seen. No free air or free fluid is seen. I see no findings to suggest acute appendicitis within the right lower quadrant. The bowel appears nonobstructed. The uterus is mildly anteflexed and tilted to the left of midline. The skeleton reveals no acute fracture or aggressive bone lesion. Impression: 1. The bowel appears nonobstructive. There is a paucity of intraperitoneal fat, as the patient is quite thin. This limits the study somewhat. 2. No evidence of significant abnormality of the kidneys, ureters, or urinary bladder is seen. Specifically, there are no definite calculi or obstructive uropathy seen. No inflammatory changes are seen. 3. No other acute process is seen within the abdomen or pelvis.
== END 2020-05-16 23:51 | disposition home or self-care (01) ==
LOC: ED 19:16
DX: N30.90 Cystitis, unspecified without hematuria (principal); F17.200 Nicotine dependence, unspecified, uncomplicated
CPT/HCPCS: 36000; 36415; 74177; 80053; 81001; 81025; 82150; 83605; 83690; 85025; 85610; 87086; 96365; 96372; 96374; 96375; 96376; 99284; J0696; J1170; J2405; J2550; A9270-GY

== ENCOUNTER 2020-09-13 15:18 | Emergency (ER) | payer OTHER ==
[2020-09-13] MEDS ORDERED: Zofran 4 MG/2 ML VIAL ONE (16:26)
[2020-09-13] MEDS ORDERED: Hydromorphone 1 mg/ml Injection ONE (16:27)
[2020-09-13] MEDS ORDERED: Sodium Chloride 0.9% 1000 ML 1,000 ML ONE (16:27)
--- NOTE | 2020-09-13 16:29 | ERPHSYRPT ---
- History of Present Illness Time Seen by Provider: 09/13/20 16:15 Historian: patient Exam Limitations: no limitations Patient Subjective Stated Complaint: pt here for left lower abd pain since last night, pt deneis any n/v/d, she states she started her period today and she is a week early, had atubal in nov and had fallopian tube removed pt is 2 para 1 Triage Nursing Assessment: pt alert,walked in, resp easy, face mask in place, skin w/d/p, moves all ext well .abd soft Physician History: This is a 25-year-old white female who complains of left lower quadrant abdominal pain that began last night. She has no associated nausea vomiting or diarrhea. She had similar pain in November 2019 and was found to have an ectopic . She had a left salpingectomy performed. The left ovary remains in place. Patient has had no abnormal vaginal discharge and no vaginal bleeding. Timing/Duration: yesterday Activities at Onset: none Quality: sharpness, stabbing Abdominal Pain Onset Location: LLQ Pain Radiation: no radiation Severity of Pain-Max: moderate Severity of Pain-Current: moderate Modifying Factors: Improves With: nothing Associated Symptoms: denies symptoms Previous symptoms: same symptoms as today, no recent treatment Allergies/Adverse Reactions: No Known Drug Allergies Allergy (Verified 09/13/20 15:34) Home Medications: No Reportable Medications [No Reported Medications] 09/13/20 [History] Hx Tetanus, Diphtheria Vaccination/Date Given: Yes Hx Influenza Vaccination/Date Given: Yes Hx Pneumococcal Vaccination/Date Given: No Immunizations Up to Date: Yes Travel Risk - International Travel Have you traveled outside of the country in past 3 weeks: No - Coronavirus Screening Are you exhibiting any of the following symptoms?: No Close contact with a COVID-19 positive Pt in past 14-21 Days: No - Review of Systems Constitutional: No Symptoms Eyes: No Symptoms Ears, Nose, & Throat: No Symptoms Respiratory: No Symptoms Cardiac: No Symptoms Abdominal/Gastrointestinal: Abdominal Pain (Left lower quadrant), No Nausea, No Vomiting, No Diarrhea, No Constipation Genitourinary Symptoms: No Symptoms Musculoskeletal: No Symptoms Skin: No Symptoms Neurological: No Symptoms Psychological: No Symptoms Endocrine: No Symptoms Hematologic/Lymphatic: No Symptoms Immunological/Allergic: No Symptoms All Other Systems: Reviewed and Negative - Past Medical History Pertinent Past Medical History: Yes Neurological History: No Pertinent History ENT History: No Pertinent History Cardiac History: No Pertinent History Respiratory History: No Pertinent History Endocrine Medical History: No Pertinent History Musculoskeletal History: No Pertinent History GI Medical History: No Pertinent History History: No Pertinent History Psycho-Social History: No Pertinent History Female Reproductive Disorders: Other Other Medical History: left fallopian tube removed - Past Surgical History Past Surgical History: Yes Neuro Surgical History: No Pertinent History Cardiac: No Pertinent History Respiratory: No Pertinent History Gastrointestinal: No Pertinent History Genitourinary: No Pertinent History Musculoskeletal: No Pertinent History Female Surgical History: Tubal Ligation Other Surgical History: tubal in november- took lt tube out, drained cyst on rt ovary - Social History Smoking Status: Current every day smoker How long have you smoked: 10yrs Exposure to second hand smoke: Yes Drug Use: none Patient Lives Alone: Yes - Female History Hx Last Menstrual Period: now Hx Now: No - Nursing Vital Signs Nursing Vital Signs: Initial Vital Signs Temperature 97.4 F 09/13/20 15:20 Pulse Rate 89 09/13/20 15:20 Respiratory Rate 18 09/13/20 15:20 Blood Pressure 154/82 09/13/20 15:20 O2 Sat by Pulse Oximetry 100 09/13/20 15:20 Pain Scale Pain Intensity 5 - Physical Exam General Appearance: mild distress, alert, anxiety Eye Exam: PERRL/EOMI, eyes nml inspection Ears, Nose, Throat Exam: normal ENT inspection, moist mucous membranes Neck Exam: normal inspection, non-tender, supple, full range of motion Respiratory Exam: normal breath sounds, lungs clear, airway intact, No chest tenderness, No respiratory distress Cardiovascular Exam: regular rate/rhythm, normal heart sounds, normal peripheral pulses Gastrointestinal/Abdomen Exam: soft, normal bowel sounds, No tenderness Pelvic Exam: not done Rectal Exam: not done Back Exam: normal inspection, normal range of motion, No CVA tenderness Extremity Exam: normal inspection, normal range of motion, pelvis stable Neurologic Exam: alert, oriented x 3, cooperative, 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, normal mood/affect, nml cerebellar function, nml station & gait, sensation nml Skin Exam: normal color, warm, dry Lymphatic Exam: No adenopathy SpO2 Interpretation: normal SpO2: 99 O2 Delivery: Room Air - Course Nursing assessment & vital signs reviewed: Yes Ordered Tests: Active Orders 24 hr Category Date Time Status IV Insertion STAT Care 09/13/20 16:22 Active ABDOMEN AND PELVIS W/0 CONTRAS [CT] Stat Exams 09/13/20 16:23 Taken AMYLASE Stat Lab 09/13/20 16:20 Completed CBC W DIFF Stat Lab 09/13/20 16:20 Completed CMP Stat Lab 09/13/20 16:20 Completed HCG,QUALITATIVE URINE Stat Lab 09/13/20 16:25 Completed LIPASE Stat Lab 09/13/20 16:20 Completed Lactic Acid Stat Lab 09/13/20 16:42 Completed UA W/RFX UR CULTURE Stat Lab 09/13/20 16:25 Completed Medication Summary Discontinued Medications Generic Name Dose Route Start Last Admin Trade Name Freq PRN Reason Stop Dose Admin Hydromorphone HCl 1 mg 09/13/20 16:22 09/13/20 16:31 Hydromorphone 1 Mg/Ml Injection IV 09/13/20 16:23 1 mg STAT ONE Administration Hydromorphone HCl Confirm 09/13/20 16:27 Hydromorphone 1 Mg/Ml Injection Administered 09/13/20 16:28 Dose 1 mg .ROUTE .STK-MED ONE Sodium Chloride 1,000 mls @ 999 mls/hr 09/13/20 16:22 09/13/20 16:31 Sodium Chloride 0.9% 1000 Ml IV 09/13/20 17:22 999 mls/hr .Q1H1M STA Administration Sodium Chloride Confirm 09/13/20 16:27 Sodium Chloride 0.9% 1000 Ml Administered 09/13/20 16:28 Dose 1,000 mls @ ud .ROUTE .STK-MED ONE Ondansetron HCl 4 mg 09/13/20 16:22 09/13/20 16:31 Zofran 4 Mg/2 Ml Vial IV 09/13/20 16:23 4 mg STAT ONE Administration Ondansetron HCl Confirm 09/13/20 16:26 Zofran 4 Mg/2 Ml Vial Administered 09/13/20 16:27 Dose 4 mg .ROUTE .STK-MED ONE Lab/Rad Data: Laboratory Result Diagrams 09/13/20 16:20 09/13/20 16:20 Laboratory Results 09/13/20 09/13/20 09/13/20 Range/Units 16:42 16:25 16:25 WBC (4.0-10.5) K/mm3 RBC (4.1-5.4) M/mm3 Hgb (12.0-16.0) gm/dl Hct (35-47) % MCV (78-100) fl MCH (26-32) pg MCHC (32-36) g/dl RDW (11.5-14.0) % Plt Count (150-450) K/mm3 MPV (7.5-11.0) fl Gran % (36.0-66.0) % Eos # (Auto) (0-0.5) Absolute Lymphs (auto) (1.0-4.6) Absolute Monos (auto) (0.0-1.3) Lymphocytes % (24.0-44.0) % Monocytes % (0.0-12.0) % Eosinophils % (0.00-5.0) % Basophils % (0.0-0.4) % Absolute Granulocytes (1.4-6.9) Basophils # (0-0.4) Sodium (137-145) mmol/L Potassium (3.5-5.1) mmol/L Chloride (98-107) mmol/L Carbon Dioxide (22-30) mmol/L Anion Gap (5-15) MEQ/L BUN (7-17) mg/dL Creatinine (0.52-1.04) mg/dL Estimated GFR ML/MIN Glucose (74-106) mg/dL Lactic Acid 1.2 (0.4-2.0) Calcium (8.4-10.2) mg/dL Total Bilirubin (0.2-1.3) mg/dL AST (14-36) U/L ALT (0-35) U/L Alkaline Phosphatase (38-126) U/L Serum Total Protein (6.3-8.2) g/dL Albumin (3.5-5.0) g/dL Amylase (30-110) U/L Lipase (23-300) U/L Urine Color YELLOW (YELLOW) Urine Appearance SLIGHTLY CLOUDY (CLEAR) Urine pH 5.0 (5-6) Ur Specific [place] 1.026 (1.005-1.025) Urine Protein NEGATIVE (Negative) Urine Ketones NEGATIVE (NEGATIVE) Urine Blood LARGE (0-5) Nestor/ul Urine Nitrite NEGATIVE (NEGATIVE) Urine Bilirubin NEGATIVE (NEGATIVE) Urine Urobilinogen NEGATIVE (0-1) mg/dL Ur Leukocyte Esterase NEGATIVE (NEGATIVE) Urine WBC (Auto) 0-2 (0-5) /HPF Urine RBC (Auto) 0-2 (0-2) /HPF U Epithel Cells (Auto) RARE (FEW) /HPF Urine Bacteria (Auto) NONE (NEGATIVE) /HPF Urine Mucus (Auto) MODERATE (NEGATIVE) /HPF Urine Culture Reflexed NO (NO) Urine Glucose NEGATIVE (NEGATIVE) mg/dL Urine HCG, Qual NEGATIVE (Negative) 09/13/20 09/13/20 Range/Units 16:20 16:20 WBC 10.1 (4.0-10.5) K/mm3 RBC 3.99 L (4.1-5.4) M/mm3 Hgb 12.0 (12.0-16.0) gm/dl Hct 35.5 (35-47) % MCV 89.0 (78-100) fl MCH 30.1 (26-32) pg MCHC 33.8 (32-36) g/dl RDW 13.0 (11.5-14.0) % Plt Count 280 (150-450) K/mm3 MPV 10.3 (7.5-11.0) fl Gran % 60.3 (36.0-66.0) % Eos # (Auto) 0.32 (0-0.5) Absolute Lymphs (auto) 2.67 (1.0-4.6) Absolute Monos (auto) 0.96 (0.0-1.3) Lymphocytes % 26.6 (24.0-44.0) % Monocytes % 9.6 (0.0-12.0) % Eosinophils % 3.2 (0.00-5.0) % Basophils % 0.3 (0.0-0.4) % Absolute Granulocytes 6.07 (1.4-6.9) Basophils # 0.03 (0-0.4) Sodium 139 (137-145) mmol/L Potassium 3.8 (3.5-5.1) mmol/L Chloride 108 H (98-107) mmol/L Carbon Dioxide 26 (22-30) mmol/L Anion Gap 8.5 (5-15) MEQ/L BUN 11 (7-17) mg/dL Creatinine 0.52 (0.52-1.04) mg/dL Estimated GFR > 60.0 ML/MIN Glucose 92 (74-106) mg/dL Lactic Acid (0.4-2.0) Calcium 9.1 (8.4-10.2) mg/dL Total Bilirubin 1.20 (0.2-1.3) mg/dL AST 17 (14-36) U/L ALT 10 (0-35) U/L Alkaline Phosphatase 34 L (38-126) U/L Serum Total Protein 7.3 (6.3-8.2) g/dL Albumin 4.4 (3.5-5.0) g/dL Amylase 54 (30-110) U/L Lipase 107 (23-300) U/L Urine Color (YELLOW) Urine Appearance (CLEAR) Urine pH (5-6) Ur Specific [place] (1.005-1.025) Urine Protein (Negative) Urine Ketones (NEGATIVE) Urine Blood (0-5) Nestor/ul Urine Nitrite (NEGATIVE) Urine Bilirubin (NEGATIVE) Urine Urobilinogen (0-1) mg/dL Ur Leukocyte Esterase (NEGATIVE) Urine WBC (Auto) (0-5) /HPF Urine RBC (Auto) (0-2) /HPF U Epithel Cells (Auto) (FEW) /HPF Urine Bacteria (Auto) (NEGATIVE) /HPF Urine Mucus (Auto) (NEGATIVE) /HPF Urine Culture Reflexed (NO) Urine Glucose (NEGATIVE) mg/dL Urine HCG, Qual (Negative) - Progress Progress: improved, pain not gone completely, re-examined Progress Note: 09/13/20 17:46 CAT scan of the abdomen and pelvis without contrast reveals a normal appendix, new tiny cul-de-sac fluid presumed from a ruptured cyst. The remaining abdomen and pelvis is negative. Counseled pt/family regarding: lab results, diagnosis, need for follow-up, rad results - Departure Departure Disposition: Home Clinical Impression: Ruptured ovarian cyst Condition: Stable Critical Care Time: No Referrals: DOCTOR,NO FAMILY [Primary Care Provider] - Additional Instructions: Drink plenty of fluids. Use Tylenol and ibuprofen for pain control. Follow-up with your primary care physician for further management
[2020-09-13] MEDS: Hydromorphone 1 mg/ml Injection IV ONE (16:31)
[2020-09-13] MEDS: Zofran 4 MG/2 ML VIAL IV ONE (16:31)
[2020-09-13] MEDS: Sodium Chloride 0.9% 1000 ML 1,000 ML IV STA (16:31)
[2020-09-13 16:43] LABS: Absolute Neutrophil Ct (ANC) 6.07 (1.4-6.9); BASOPHIL % 0.3 % (0.0-0.4); Basophil (Absolute #) 0.03 (0-0.4); Eosinophil % 3.2 % (0.00-5.0); Eosinophil (Absolute #) 0.32 (0-0.5); Hematocrit 35.5 % (35-47); Lymphocyte (Absolute #) 2.67 (1.0-4.6); Lymphocytes % 26.6 % (24.0-44.0); Mean Corpuscular Hemoglobin 30.1 pg (26-32); Mean Corpuscular Hgb Concent. 33.8 g/dl (32-36); Mean Platelet Volume 10.3 fl (7.5-11.0); Monocyte (Absolute #) 0.96 (0.0-1.3); Monocytes % 9.6 % (0.0-12.0); Neutrophil % 60.3 % (36.0-66.0); Platelet Count 280 K/mm3 (150-450); Red Blood Count 3.99 M/mm3 (4.1-5.4); White Blood Count 10.1 K/mm3 (4.0-10.5)
[2020-09-13 16:51] LABS: ALBUMIN 4.4 g/dL (3.5-5.0); ALKALINE PHOSPHATASE 34 U/L (38-126); AMYLASE 54 U/L (30-110); ANION GAP 8.5 MEQ/L (5-15); BLOOD UREA NITROGEN 11 mg/dL (7-17); CHLORIDE 108 mmol/L (98-107); Calcium 9.1 mg/dL (8.4-10.2); Carbon Dioxide 26 mmol/L (22-30); Creatinine 1 0.52 mg/dL (0.52-1.04); EST GLOMERULAR FILTRATION RATE > 60.0 ML/MIN; Glucose 92 mg/dL (74-106); LIPASE 107 U/L (23-300); Potassium 3.8 mmol/L (3.5-5.1); SGOT/AST 17 U/L (14-36); SGPT/ALT 10 U/L (0-35); SODIUM 139 mmol/L (137-145); Total Protein 7.3 g/dL (6.3-8.2)
[2020-09-13 17:07] LABS: Appearance SLIGHTLY CLOUDY (CLEAR); Bilirubin NEGATIVE (NEGATIVE); Blood LARGE Ery/ul (0-5); Epithelial Cells RARE /HPF (FEW); Glucose NEGATIVE (NEGATIVE); Ketones NEGATIVE (NEGATIVE); Leukocyte Esterase NEGATIVE (NEGATIVE); Mucus MODERATE /HPF (NEGATIVE); Nitrite NEGATIVE (NEGATIVE); Protein,Urine Dip NEGATIVE (Negative); RBC 0-2 /HPF (0-2); Specific Gravity 1.026 (1.005-1.025); Urobilinogen NEGATIVE mg/dL (0-1); WBC 0-2 /HPF (0-5)
[2020-09-13 17:56] VITALS: BP 117/66; PULSE 72; O2SAT 97
--- NOTE | 2020-09-14 08:51 | XRAY ---
Indication: Left lower quadrant pain. Vaginal bleeding. Multiple contiguous axial images obtained through the abdomen and pelvis without contrast as ordered. Comparison: May 16, 2020. Lung bases demonstrates minimal dependent atelectasis. New incompletely visualized 4 mm left lower lobe subpleural noncalcified nodularity, probably granulomatous in this demographic. Heart is not enlarged. Stomach is distended with food/fluid and medication/bismuth. Noncontrasted bowel loops appear nonobstructed. Normal appendix. There is now mild/moderate diffuse scattered colonic fecal debris throughout. New tiny cul-de-sac fluid presumed physiologic from rupture/leaking cyst. Remaining liver, gallbladder, pancreas, spleen, adrenal glands, kidneys, ureters, bladder, uterus, and aorta appear unremarkable for noncontrast exam. Osseous structures intact. Impression: 1. New diffuse fecal stasis and new physiologic cul-de-sac fluid. 2. New incompletely visualized left lower lobe noncalcified micronodule probably granulomatous. 3. Remaining CT abdomen/pelvis without contrast exam is negative.
== END 2020-09-13 18:00 | disposition home or self-care (01) ==
LOC: ED 15:18
DX: N83.202 Unspecified ovarian cyst, left side (principal); R10.32 Left lower quadrant pain
CPT/HCPCS: 36000; 36415; 74176; 80053; 81001; 82150; 83605; 83690; 84703; 85025; 96360; 96374; 96375; 99284; J1170; J2405

== ENCOUNTER 2022-05-07 19:21 | Emergency (ER) | payer OTHER ==
[2022-05-07 19:39] VITALS: O2SAT 98
[2022-05-07] MEDS ORDERED: MORPHINE SULFATE 4 MG INJ IV ONE (20:01)
[2022-05-07] MEDS ORDERED: Sodium Chloride 0.9% 1000 ML 1,000 ML IV STA (20:01)
[2022-05-07] MEDS ORDERED: Zofran 4 MG/2 ML VIAL IV ONE (20:01)
--- NOTE | 2022-05-07 20:08 | ERPHSYRPT ---
- History of Present Illness Time Seen by Provider: 05/07/22 19:26 Historian: patient Exam Limitations: no limitations Patient Subjective Stated Complaint: pt states "I woke up this morning with my left side of my ovary kind of hurting. I started my period this morning too but it is kind of early." Triage Nursing Assessment: Pt ambulates to cot by self, pt alert and oriented x3, pt c/o L sided pelvic pain that started this morning with her period, pt states that her period is early, pt denies fever, n/v/d, pt is afebrile, skin pwd, vitals wnl Physician History: 26 years old presented in the ER with chief complaint of left flank/left lower quadrant/pelvic area pain upon waking up from sleep around 3 PM today, con tinuous, moderate to severe sharp with some radiation to the groin, aggravated with movement palpation and without any significant relieving factors. Having similar pain last time when she had a tubal . Denies any urinary symptoms. No history of kidney stones. She also started her cycle today which is kind of earlier. Timing/Duration: hour(s) (5), constant, sudden, worse Activities at Onset: sleep Quality: sharpness Abdominal Pain Onset Location: LLQ, flank Pain Radiation: groin Severity of Pain-Max: severe Severity of Pain-Current: moderate Modifying Factors: Worsens With: movement, palpation Associated Symptoms: denies symptoms Previous symptoms: same symptoms as today Allergies/Adverse Reactions: No Known Drug Allergies Allergy (Verified 05/07/22 19:31) Home Medications: No Reportable Medications [No Reported Medications] 09/13/20 [History] Hx Tetanus, Diphtheria Vaccination/Date Given: Yes Hx Influenza Vaccination/Date Given: No Hx Pneumococcal Vaccination/Date Given: No Immunizations Up to Date: Yes Travel Risk - International Travel Have you traveled outside of the country in past 3 weeks: No - Coronavirus Screening Are you exhibiting any of the following symptoms?: No Close contact with a COVID-19 positive Pt in past 14-21 Days: No - Vaccine Status Have you recieved a Covid-19 vaccination: No - Review of Systems Constitutional: No Symptoms Eyes: No Symptoms Ears, Nose, & Throat: No Symptoms Respiratory: No Symptoms Cardiac: No Symptoms Abdominal/Gastrointestinal: Abdominal Pain Genitourinary Symptoms: Vaginal Bleeding Musculoskeletal: No Symptoms Skin: No Symptoms Neurological: No Symptoms Psychological: Anxiety Endocrine: No Symptoms Hematologic/Lymphatic: No Symptoms Immunological/Allergic: No Symptoms - Past Medical History Pertinent Past Medical History: Yes Neurological History: No Pertinent History ENT History: No Pertinent History Cardiac History: No Pertinent History Respiratory History: No Pertinent History Endocrine Medical History: No Pertinent History Musculoskeletal History: No Pertinent History GI Medical History: No Pertinent History History: No Pertinent History Psycho-Social History: No Pertinent History Female Reproductive Disorders: Other Other Medical History: left fallopian tube removed - Past Surgical History Past Surgical History: Yes Neuro Surgical History: No Pertinent History Cardiac: No Pertinent History Respiratory: No Pertinent History Gastrointestinal: No Pertinent History Genitourinary: No Pertinent History Musculoskeletal: No Pertinent History Female Surgical History: Tubal Ligation Other Surgical History: tubal in november- took lt tube out, drained cyst on rt ovary - Social History Smoking Status: Current some day smoker How long have you smoked: 10yrs Exposure to second hand smoke: Yes Drug Use: none Patient Lives Alone: No - Female History Hx Last Menstrual Period: 05/07/2022 Hx Now: (unkn) - Nursing Vital Signs Nursing Vital Signs: Initial Vital Signs Temperature 97.6 F 05/07/22 19:32 Pulse Rate 71 05/07/22 19:32 Respiratory Rate 18 05/07/22 19:32 Blood Pressure 115/83 05/07/22 19:32 O2 Sat by Pulse Oximetry 98 05/07/22 19:32 Pain Scale Pain Intensity 5 - Physical Exam General Appearance: no apparent distress, alert Eye Exam: PERRL/EOMI Ears, Nose, Throat Exam: normal ENT inspection Neck Exam: normal inspection, full range of motion Respiratory Exam: normal breath sounds, lungs clear Cardiovascular Exam: regular rate/rhythm, normal heart sounds Gastrointestinal/Abdomen Exam: soft, normal bowel sounds, tenderness (Left flank/left lower quadrant with some guarding) Back Exam: normal inspection, normal range of motion, CVA tenderness (Left) Extremity Exam: normal inspection, normal range of motion Neurologic Exam: alert, oriented x 3, cooperative Skin Exam: normal color SpO2 Interpretation: normal SpO2: 98 O2 Delivery: Room Air Ordered Tests: Active Orders 24 hr Category Date Time Status IV Insertion STAT Care 05/07/22 20:01 Active NPO (ED) STAT Care 05/07/22 20:01 Active CBC W DIFF Stat Lab 05/07/22 20:00 Completed CMP Stat Lab 05/07/22 20:00 Completed CULTURE,URINE Stat Lab 05/07/22 20:13 Received HCG QUALITATIVE,SERUM Stat Lab 05/07/22 20:00 Completed LIPASE Stat Lab 05/07/22 20:00 Completed UA W/RFX CULTURE Stat Lab 05/07/22 20:13 Completed Medication Summary Discontinued Medications Generic Name Dose Route Start Last Admin Trade Name Michael PRN Reason Stop Dose Admin Sodium Chloride 1,000 mls @ 999 mls/hr 05/07/22 20:01 05/07/22 20:11 Sodium Chloride 0.9% 1000 Ml IV 05/07/22 21:01 999 mls/hr .Q1H1M STA Administration Sodium Chloride Confirm 05/07/22 20:09 Sodium Chloride 0.9% 1000 Ml Administered 05/07/22 20:10 Dose 1,000 mls @ ud .ROUTE .STK-MED ONE Morphine Sulfate 4 mg 05/07/22 20:01 05/07/22 20:11 Morphine Sulfate 4 Mg/Ml Injection IV 05/07/22 20:02 4 mg STAT ONE Administration Morphine Sulfate Confirm 05/07/22 20:09 Morphine Sulfate 4 Mg/Ml Injection Administered 05/07/22 20:10 Dose 4 mg .ROUTE .STK-MED ONE Ondansetron HCl 4 mg 05/07/22 20:01 05/07/22 20:10 Ondansetron Hcl 4 Mg/2 Ml Vial IV 05/07/22 20:02 4 mg STAT ONE Administration Ondansetron HCl Confirm 05/07/22 20:09 Ondansetron Hcl 4 Mg/2 Ml Vial Administered 05/07/22 20:10 Dose 4 mg .ROUTE .STK-MED ONE Lab/Rad Data: Laboratory Result Diagrams 05/07/22 20:00 05/07/22 20:00 Laboratory Results 05/07/22 05/07/22 05/07/22 Range/Units 20:13 20:00 20:00 WBC (4.0-10.5) x10^3/uL RBC (4.1-5.4) x10^6/uL Hgb (12.0-16.0) g/dL Hct (35-47) % MCV (78-100) fL MCH (26-32) pg MCHC (32-36) g/dL RDW (11.5-14.0) % Plt Count (150-450) x10^3/uL MPV (7.5-11.0) fL Gran % (36.0-66.0) % Immature Gran % (Auto) (0.00-0.4) % Nucleat RBC Rel Count (0.00-0.1) % Eos # (Auto) (0-0.5) x10^3/uL Immature Gran # (Auto) (0.00-0.03) x10^3u/L Absolute Lymphs (auto) (1.0-4.6) x10^3/uL Absolute Monos (auto) (0.0-1.3) x10^3/uL Absolute Nucleated RBC (0.00-0.01) x10^3u/L Lymphocytes % (24.0-44.0) % Monocytes % (0.0-12.0) % Eosinophils % (0.00-5.0) % Basophils % (0.0-0.4) % Absolute Granulocytes (1.4-6.9) x10^3/uL Basophils # (0-0.4) x10^3/uL Sodium 139 (137-145) mmol/L Potassium 4.0 (3.5-5.1) mmol/L Chloride 103 (98-107) mmol/L Carbon Dioxide 27 (22-30) mmol/L Anion Gap 12.5 (5-15) MEQ/L BUN 16 (7-17) mg/dL Creatinine 0.81 (0.52-1.04) mg/dL Estimated GFR > 60.0 ML/MIN Glucose 94 (74-106) mg/dL Calcium 9.2 (8.4-10.2) mg/dL Total Bilirubin 2.50 H (0.2-1.3) mg/dL AST 20 (14-36) U/L ALT 12 (0-35) U/L Alkaline Phosphatase 51 (38-126) U/L Serum Total Protein 7.6 (6.3-8.2) g/dL Albumin 4.6 (3.5-5.0) g/dL Lipase 72 (23-300) U/L Serum , Qual NEGATIVE (Negative) Urinalys Dipstick Clnc MAIN LAB Urine Color DARK YELLOW (YELLOW) Urine Appearance SLIGHTLY CLOUDY (CLEAR) Urine pH 7.0 (5-6) Ur Specific [place] 1.020 (1.005-1.025) POC Urine Protein Conf 30 (Negative) Urine Ketones NEGATIVE (NEGATIVE) Urine Nitrite NEGATIVE (NEGATIVE) Urine Bilirubin NEGATIVE (NEGATIVE) Urine Urobilinogen 1 (0-1) mg/dL Urine Leukocytes NEGATIVE (NEGATIVE) Urine WBC (Auto) 6-10 (0-5) /HPF Urine RBC (Auto) 3-5 (0-2) /HPF U Epithel Cells (Auto) RARE (FEW) /HPF Urine Bacteria (Auto) MODERATE (NEGATIVE) /HPF Urine RBC SMALL (0-5) Nestor/ul Amorphous Crystals FEW (NEGATIVE) /HPF Urine Mucus (Auto) MANY (NEGATIVE) /HPF Urine Yeast (Budding) Few (NEGATIVE) /HPF Ur Culture Indicated? YES Urine Glucose NEGATIVE (NEGATIVE) mg/dL 05/07/22 Range/Units 20:00 WBC 12.5 H (4.0-10.5) x10^3/uL RBC 4.20 (4.1-5.4) x10^6/uL Hgb 12.3 (12.0-16.0) g/dL Hct 36.2 (35-47) % MCV 86.2 (78-100) fL MCH 29.3 (26-32) pg MCHC 34.0 (32-36) g/dL RDW 12.2 (11.5-14.0) % Plt Count 349 (150-450) x10^3/uL MPV 9.5 (7.5-11.0) fL Gran % 70.6 H (36.0-66.0) % Immature Gran % (Auto) 0.6 H (0.00-0.4) % Nucleat RBC Rel Count 0.0 (0.00-0.1) % Eos # (Auto) 0.16 (0-0.5) x10^3/uL Immature Gran # (Auto) 0.07 H (0.00-0.03) x10^3u/L Absolute Lymphs (auto) 2.41 (1.0-4.6) x10^3/uL Absolute Monos (auto) 0.97 (0.0-1.3) x10^3/uL Absolute Nucleated RBC 0.00 (0.00-0.01) x10^3u/L Lymphocytes % 19.3 L (24.0-44.0) % Monocytes % 7.8 (0.0-12.0) % Eosinophils % 1.3 (0.00-5.0) % Basophils % 0.4 (0.0-0.4) % Absolute Granulocytes 8.82 H (1.4-6.9) x10^3/uL Basophils # 0.05 (0-0.4) x10^3/uL Sodium (137-145) mmol/L Potassium (3.5-5.1) mmol/L Chloride (98-107) mmol/L Carbon Dioxide (22-30) mmol/L Anion Gap (5-15) MEQ/L BUN (7-17) mg/dL Creatinine (0.52-1.04) mg/dL Estimated GFR ML/MIN Glucose (74-106) mg/dL Calcium (8.4-10.2) mg/dL Total Bilirubin (0.2-1.3) mg/dL AST (14-36) U/L ALT (0-35) U/L Alkaline Phosphatase (38-126) U/L Serum Total Protein (6.3-8.2) g/dL Albumin (3.5-5.0) g/dL Lipase (23-300) U/L Serum , Qual (Negative) Urinalys Dipstick Clnc Urine Color (YELLOW) Urine Appearance (CLEAR) Urine pH (5-6) Ur Specific [place] (1.005-1.025) POC Urine Protein Conf (Negative) Urine Ketones (NEGATIVE) Urine Nitrite (NEGATIVE) Urine Bilirubin (NEGATIVE) Urine Urobilinogen (0-1) mg/dL Urine Leukocytes (NEGATIVE) Urine WBC (Auto) (0-5) /HPF Urine RBC (Auto) (0-2) /HPF U Epithel Cells (Auto) (FEW) /HPF Urine Bacteria (Auto) (NEGATIVE) /HPF Urine RBC (0-5) Nestor/ul Amorphous Crystals (NEGATIVE) /HPF Urine Mucus (Auto) (NEGATIVE) /HPF Urine Yeast (Budding) (NEGATIVE) /HPF Ur Culture Indicated? Urine Glucose (NEGATIVE) mg/dL - Progress Progress: improved Progress Note: 05/07/22 21:07 She is given symptomatic treatment for pain, on reevaluation feeling better. Work-up showed white count of 12, grossly unremarkable chemistry except for tota l bili of 2.5 with normal renal functions. Patient pain is more in the left and lower abdomen/pelvis area. She has a negative urine . Patient decided to leave, discussed with her risk of leaving without full work-up which would not only delay process of diagnosis but also worsening of condition like ureteral stone with obstruction, intestinal obstruction, diverticulitis, ovarian torsion etc. Patient states "I wanted to make sure that I do not have a tubal and I will make appointment with my primary to see what else needs to be done". She is not confused altar at all. She signed paperwork leaving AGAINST MEDICAL ADVICE and left in a stable condition. She is advised to follow-up with her primary care and return to ER for any worsening which she seems understanding 05/07/22 21:09 Counseled pt/family regarding: lab results, diagnosis, need for follow-up - Departure Departure Disposition: AMA Clinical Impression: Left sided abdominal pain Condition: Stable Critical Care Time: No Referrals: DOCTOR,NO FAMILY [Primary Care Provider] - Follow up/PCP as directed
[2022-05-07] MEDS ORDERED: Sodium Chloride 0.9% 1000 ML 1,000 ML ONE (20:09)
[2022-05-07] MEDS ORDERED: MORPHINE SULFATE 4 MG INJ ONE (20:09)
[2022-05-07] MEDS ORDERED: Zofran 4 MG/2 ML VIAL ONE (20:09)
[2022-05-07 20:11] LABS: Absolute Neutrophil Ct (ANC) 8.82 x10^3/uL (1.4-6.9); Basophil (Absolute #) 0.05 x10^3/uL (0-0.4); Eosinophil % 1.3 % (0.00-5.0); Eosinophil (Absolute #) 0.16 x10^3/uL (0-0.5); Hematocrit 36.2 % (35-47); Hemoglobin 12.3 g/dL (12.0-16.0); Lymphocyte (Absolute #) 2.41 x10^3/uL (1.0-4.6); Lymphocytes % 19.3 % (24.0-44.0); Mean Cell Volume 86.2 fL (78-100); Mean Corpuscular Hemoglobin 29.3 pg (26-32); Mean Platelet Volume 9.5 fL (7.5-11.0); Monocyte (Absolute #) 0.97 x10^3/uL (0.0-1.3); Monocytes % 7.8 % (0.0-12.0); Neutrophil % 70.6 % (36.0-66.0); Platelet Count 349 x10^3/uL (150-450); Red Cell Distribution Width 12.2 % (11.5-14.0); White Blood Count 12.5 x10^3/uL (4.0-10.5)
[2022-05-07 20:25] LABS: ALBUMIN 4.6 g/dL (3.5-5.0); ALKALINE PHOSPHATASE 51 U/L (38-126); ANION GAP 12.5 MEQ/L (5-15); BLOOD UREA NITROGEN 16 mg/dL (7-17); CHLORIDE 103 mmol/L (98-107); Calcium 9.2 mg/dL (8.4-10.2); Carbon Dioxide 27 mmol/L (22-30); Creatinine 1 0.81 mg/dL (0.52-1.04); EST GLOMERULAR FILTRATION RATE > 60.0 ML/MIN; Glucose 94 mg/dL (74-106); LIPASE 72 U/L (23-300); SGOT/AST 20 U/L (14-36); SGPT/ALT 12 U/L (0-35); SODIUM 139 mmol/L (137-145); Total Protein 7.6 g/dL (6.3-8.2)
[2022-05-07 20:26] VITALS: BP 110/84; PULSE 68
[2022-05-07 20:48] LABS: Amourphous Crystal FEW /HPF (NEGATIVE); Bacteria MODERATE /HPF (NEGATIVE); Epithelial Cells RARE /HPF (FEW); Mucus MANY /HPF (NEGATIVE)
[2022-05-07 20:53] LABS: Appearance SLIGHTLY CLOUDY (CLEAR); Bilirubin NEGATIVE (NEGATIVE); Glucose NEGATIVE (NEGATIVE); Ketones NEGATIVE (NEGATIVE)
[2022-05-07 20:56] LABS: Dipstick done @ ? MAIN LAB; Nitrite NEGATIVE (NEGATIVE); Protein,Urine Dip 30 (Negative); RBC SMALL Ery/ul (0-5); Urobilinogen 1 mg/dL (0-1)
[2022-05-07 20:59] LABS: Budding Yeast Few /HPF (NEGATIVE); Urine Cultured Indicated? YES
== END 2022-05-07 20:54 | disposition left against medical advice (07) ==
LOC: ED 19:21
DX: R10.32 Left lower quadrant pain (principal); R10.2 Pelvic and perineal pain; Z72.0 Tobacco use; Z28.310 Unvaccinated for COVID-19
CPT/HCPCS: 36000; 36415; 80053; 81015; 83690; 84703; 85025; 87086; 96360; 96374; 96375; 99284; J2270; J2405

== ENCOUNTER 2022-07-11 01:39 | Observation (INO) | payer OTHER ==
--- NOTE | 2022-07-11 01:57 | ERPHSYRPT ---
- History of Present Illness Time Seen by Provider: 07/11/22 01:45 Source: patient Exam Limitations: no limitations Patient Subjective Stated Complaint: pt states sh has been having chest pain for last 2 days. states pain is worse with deep breath and with coughing. Triage Nursing Assessment: pt alert and oriented, answers questions approp. pt ambualtory with steady gait noted. respiraitons nonlabored, lungs cta. skin warm and dry. Physician History: This is a 26-year-old white female whose had cough and shortness of breath and associated chest pain with coughing for 2 days. She has had no nausea vomiting or diarrhea. She has no abdominal pain. She has not had a fever. Timing/Duration: day(s) (2) Cough Quality/Degree: mild (To moderate), dry cough Possible Cause: no prior episodes Modifying Factors: Improves With: coughing Associated Symptoms: chest pain/soreness (Associated with cough), cough, shortness of breath Allergies/Adverse Reactions: No Known Drug Allergies Allergy (Verified 07/11/22 01:49) Home Medications: No Reportable Medications [No Reported Medications] 09/13/20 [History] Hx Tetanus, Diphtheria Vaccination/Date Given: Yes Hx Influenza Vaccination/Date Given: No Hx Pneumococcal Vaccination/Date Given: No Immunizations Up to Date: Yes Travel Risk - International Travel Have you traveled outside of the country in past 3 weeks: No - Coronavirus Screening Are you exhibiting any of the following symptoms?: Yes Symptoms: Cough: New Onset, Shortness of Breath Close contact with a COVID-19 positive Pt in past 14-21 Days: No - Vaccine Status Have you recieved a Covid-19 vaccination: No - Review of Systems Constitutional: No Symptoms Eyes: No Symptoms Ears, Nose, & Throat: No Symptoms Respiratory: Cough, Dyspnea Cardiac: Chest Pain (Associated with cough) Abdominal/Gastrointestinal: No Symptoms Genitourinary Symptoms: No Symptoms Musculoskeletal: No Symptoms Skin: No Symptoms Neurological: No Symptoms Psychological: No Symptoms Endocrine: No Symptoms Hematologic/Lymphatic: No Symptoms Immunological/Allergic: No Symptoms All Other Systems: Reviewed and Negative - Past Medical History Pertinent Past Medical History: Yes Neurological History: No Pertinent History ENT History: No Pertinent History Cardiac History: No Pertinent History Respiratory History: No Pertinent History Endocrine Medical History: No Pertinent History Musculoskeletal History: No Pertinent History GI Medical History: No Pertinent History History: No Pertinent History Psycho-Social History: No Pertinent History Female Reproductive Disorders: Other Other Medical History: left fallopian tube removed - Past Surgical History Past Surgical History: Yes Neuro Surgical History: No Pertinent History Cardiac: No Pertinent History Respiratory: No Pertinent History Gastrointestinal: No Pertinent History Genitourinary: No Pertinent History Musculoskeletal: No Pertinent History Female Surgical History: Tubal Ligation Other Surgical History: tubal in november- took lt tube out, drained cyst on rt ovary - Social History Smoking Status: Current some day smoker How long have you smoked: 10yrs Exposure to second hand smoke: Yes Drug Use: none Patient Lives Alone: No - Female History Hx Last Menstrual Period: last week Hx Now: No - Nursing Vital Signs Nursing Vital Signs: Initial Vital Signs Temperature 97.1 F 07/11/22 01:40 Pulse Rate 87 07/11/22 01:40 Respiratory Rate 18 07/11/22 01:40 Blood Pressure 113/81 07/11/22 01:40 O2 Sat by Pulse Oximetry 99 07/11/22 01:40 Pain Scale Pain Intensity 5 - Physical Exam General Appearance: no apparent distress, alert, anxiety Eye Exam: PERRL/EOMI, eyes nml inspection Ears, Nose, Throat Exam: normal ENT inspection, moist mucous membranes Neck Exam: normal inspection, non-tender, supple, full range of motion Respiratory Exam: chest tenderness (Right upper anterior), lungs clear (With cough), airway intact, diminished breath sounds (On the right side), No respiratory distress Cardiovascular Exam: regular rate/rhythm, normal heart sounds, normal peripheral pulses Gastrointestinal/Abdomen Exam: soft, normal bowel sounds, No tenderness Pelvic Exam: not done Rectal Exam: not done Back Exam: normal inspection, normal range of motion, No CVA tenderness, No vertebral tenderness Extremity Exam: normal inspection, normal range of motion, pelvis stable Neurologic Exam: alert, oriented x 3, cooperative, correctional therapy teacher II-XII nml as tested, normal mood/affect, nml cerebellar function, nml station & gait, sensation nml Skin Exam: normal color, warm, dry Lymphatic Exam: No adenopathy SpO2 Interpretation: normal SpO2: 99 O2 Delivery: Room Air Procedures - Chest Tube Time of Procedure: 03:05 Timeout: Performed Chest Tube Location: fourth intercostal space Size of [place] Tube (cm): 8 Chest Tube Procedure: sterile drapes applied Anesthesia: 1% Lidocaine Volume Anesthetic (ccs): other (15) Baez of Air [place]: Yes Tube Drainage: air Tube Sutured to Skin: Yes Post Procedure CXR?: Yes - Course Nursing assessment & vital signs reviewed: Yes Ordered Tests: Active Orders 24 hr Category Date Time Status EKG-ER Only STAT Care 07/11/22 01:57 Active IV Insertion STAT Care 07/11/22 01:57 Active Pulse Oximetry (ED) STAT Care 07/11/22 01:57 Active CHEST 1 VIEW (PORTABLE) Stat Exams 07/11/22 01:57 Taken CHEST 1 VIEW (PORTABLE) Stat Exams 07/11/22 03:49 Taken CHEST 2 VIEWS (PA AND LAT) Routine Exams 07/11/22 03:19 Taken CBC W DIFF Stat Lab 07/11/22 02:00 Completed CMP Stat Lab 07/11/22 02:00 Completed D-DIMER QUANTITATIVE Stat Lab 07/11/22 02:00 Completed TROPONIN Q4H Lab 07/11/22 02:00 Completed TROPONIN Q4H Lab 07/11/22 06:00 Ordered TROPONIN Q4H Lab 07/11/22 10:00 Ordered Transfer Order Routine Transfer 07/11/22 Ordered Medication Summary Discontinued Medications Generic Name Dose Route Start Last Admin Trade Name Freq PRN Reason Stop Dose Admin Morphine Sulfate Confirm 07/11/22 02:59 Morphine Sulfate 4 Mg/Ml Injection Administered 07/11/22 03:00 Dose 4 mg .ROUTE .STK-MED ONE Morphine Sulfate Confirm 07/11/22 03:49 Morphine Sulfate 4 Mg/Ml Injection Administered 07/11/22 03:50 Dose 4 mg .ROUTE .STK-MED ONE Ondansetron HCl Confirm 07/11/22 02:59 Ondansetron Hcl 4 Mg/2 Ml Vial Administered 07/11/22 03:00 Dose 4 mg .ROUTE .STK-MED ONE Lab/Rad Data: Laboratory Result Diagrams 07/11/22 02:00 07/11/22 02:00 Laboratory Results 07/11/22 07/11/22 07/11/22 Range/Units 02:10 02:00 02:00 WBC (4.0-10.5) x10^3/uL RBC (4.1-5.4) x10^6/uL Hgb (12.0-16.0) g/dL Hct (35-47) % MCV (78-100) fL MCH (26-32) pg MCHC (32-36) g/dL RDW (11.5-14.0) % Plt Count (150-450) x10^3/uL MPV (7.5-11.0) fL Gran % (36.0-66.0) % Immature Gran % (Auto) (0.00-0.4) % Nucleat RBC Rel Count (0.00-0.1) % Eos # (Auto) (0-0.5) x10^3/uL Immature Gran # (Auto) (0.00-0.03) x10^3u/L Absolute Lymphs (auto) (1.0-4.6) x10^3/uL Absolute Monos (auto) (0.0-1.3) x10^3/uL Absolute Nucleated RBC (0.00-0.01) x10^3u/L Lymphocytes % (24.0-44.0) % Monocytes % (0.0-12.0) % Eosinophils % (0.00-5.0) % Basophils % (0.0-0.4) % Absolute Granulocytes (1.4-6.9) x10^3/uL Basophils # (0-0.4) x10^3/uL D-Dimer 0.47 (0.0-0.50) mg/L Sodium (137-145) mmol/L Potassium (3.5-5.1) mmol/L Chloride (98-107) mmol/L Carbon Dioxide (22-30) mmol/L Anion Gap (5-15) MEQ/L BUN (7-17) mg/dL Creatinine (0.52-1.04) mg/dL Estimated GFR ML/MIN Glucose (74-106) mg/dL Calcium (8.4-10.2) mg/dL Total Bilirubin (0.2-1.3) mg/dL AST (14-36) U/L ALT (0-35) U/L Alkaline Phosphatase (38-126) U/L Troponin I < 0.012 (0.000-0.034) ng/mL Serum Total Protein (6.3-8.2) g/dL Albumin (3.5-5.0) g/dL Influenza Type A Ag NEGATIVE (NEGATIVE) Influenza Type B Ag NEGATIVE (NEGATIVE) RSV (PCR) NEGATIVE (Negative) SARS-CoV-2 (PCR) NEGATIVE (NEGATIVE) 07/11/22 07/11/22 Range/Units 02:00 02:00 WBC 12.3 H (4.0-10.5) x10^3/uL RBC 4.39 (4.1-5.4) x10^6/uL Hgb 12.9 (12.0-16.0) g/dL Hct 37.8 (35-47) % MCV 86.1 (78-100) fL MCH 29.4 (26-32) pg MCHC 34.1 (32-36) g/dL RDW 12.5 (11.5-14.0) % Plt Count 333 (150-450) x10^3/uL MPV 9.7 (7.5-11.0) fL Gran % 61.1 (36.0-66.0) % Immature Gran % (Auto) 0.3 (0.00-0.4) % Nucleat RBC Rel Count 0.0 (0.00-0.1) % Eos # (Auto) 0.28 (0-0.5) x10^3/uL Immature Gran # (Auto) 0.04 H (0.00-0.03) x10^3u/L Absolute Lymphs (auto) 3.42 (1.0-4.6) x10^3/uL Absolute Monos (auto) 1.01 (0.0-1.3) x10^3/uL Absolute Nucleated RBC 0.00 (0.00-0.01) x10^3u/L Lymphocytes % 27.7 (24.0-44.0) % Monocytes % 8.2 (0.0-12.0) % Eosinophils % 2.3 (0.00-5.0) % Basophils % 0.4 (0.0-0.4) % Absolute Granulocytes 7.53 H (1.4-6.9) x10^3/uL Basophils # 0.05 (0-0.4) x10^3/uL D-Dimer (0.0-0.50) mg/L Sodium 138 (137-145) mmol/L Potassium 3.7 (3.5-5.1) mmol/L Chloride 104 (98-107) mmol/L Carbon Dioxide 26 (22-30) mmol/L Anion Gap 12.9 (5-15) MEQ/L BUN 22 H (7-17) mg/dL Creatinine 0.59 (0.52-1.04) mg/dL Estimated GFR > 60.0 ML/MIN Glucose 111 H (74-106) mg/dL Calcium 9.4 (8.4-10.2) mg/dL Total Bilirubin 1.50 H (0.2-1.3) mg/dL AST 34 (14-36) U/L ALT 26 (0-35) U/L Alkaline Phosphatase 58 (38-126) U/L Troponin I (0.000-0.034) ng/mL Serum Total Protein 8.1 (6.3-8.2) g/dL Albumin 4.8 (3.5-5.0) g/dL Influenza Type A Ag (NEGATIVE) Influenza Type B Ag (NEGATIVE) RSV (PCR) (Negative) SARS-CoV-2 (PCR) (NEGATIVE) - Progress Progress: improved Air Movement: fair Progress Note: 07/11/22 02:25 Portable chest x-ray shows a significant right side pneumothorax. No mediastinal shift. No tracheal deviation. 07/11/22 02:26 07/11/22 04:04 Second portable chest x-ray after placement of 8 [place] right chest percutaneous chest tube shows significant decrease in the pneumothorax on the right side. There is no mediastinal shift and no tracheal deviation. Third portable chest x-ray shows significant decrease in the pneumothorax on the right side when compared to the second portable chest x-ray. Blood Culture(s) Obtained: No Antibiotics given: No Discussed with : Ekaterina Counseled pt/family regarding: lab results, diagnosis, rad results - Departure Departure Disposition: Home Clinical Impression: Chest pain, Cough, Shortness of breath, Spontaneous pneumothorax Condition: Stable Critical Care Time: Yes Critical Care Time(excluding separately billable procedures): Critical 30-74 mins (30 minutes) Referrals: DOCTOR,NO FAMILY [Primary Care Provider] - Follow up/PCP as directed
[2022-07-11 02:12] LABS: Absolute Neutrophil Ct (ANC) 7.53 x10^3/uL (1.4-6.9); Basophil (Absolute #) 0.05 x10^3/uL (0-0.4); Eosinophil % 2.3 % (0.00-5.0); Eosinophil (Absolute #) 0.28 x10^3/uL (0-0.5); Hematocrit 37.8 % (35-47); Hemoglobin 12.9 g/dL (12.0-16.0); Lymphocyte (Absolute #) 3.42 x10^3/uL (1.0-4.6); Lymphocytes % 27.7 % (24.0-44.0); Mean Cell Volume 86.1 fL (78-100); Mean Corpuscular Hemoglobin 29.4 pg (26-32); Mean Corpuscular Hgb Concent. 34.1 g/dL (32-36); Mean Platelet Volume 9.7 fL (7.5-11.0); Monocyte (Absolute #) 1.01 x10^3/uL (0.0-1.3); Monocytes % 8.2 % (0.0-12.0); Neutrophil % 61.1 % (36.0-66.0); Platelet Count 333 x10^3/uL (150-450); Red Blood Count 4.39 x10^6/uL (4.1-5.4); Red Cell Distribution Width 12.5 % (11.5-14.0); White Blood Count 12.3 x10^3/uL (4.0-10.5)
[2022-07-11 02:25] LABS: ALBUMIN 4.8 g/dL (3.5-5.0); ALKALINE PHOSPHATASE 58 U/L (38-126); ANION GAP 12.9 MEQ/L (5-15); BLOOD UREA NITROGEN 22 mg/dL (7-17); CHLORIDE 104 mmol/L (98-107); Calcium 9.4 mg/dL (8.4-10.2); Carbon Dioxide 26 mmol/L (22-30); Creatinine 1 0.59 mg/dL (0.52-1.04); EST GLOMERULAR FILTRATION RATE > 60.0 ML/MIN; Glucose 111 mg/dL (74-106); Potassium 3.7 mmol/L (3.5-5.1); SGOT/AST 34 U/L (14-36); SGPT/ALT 26 U/L (0-35); SODIUM 138 mmol/L (137-145); Total Protein 8.1 g/dL (6.3-8.2)
[2022-07-11 02:48] LABS: INFLUENZA A NEGATIVE (NEGATIVE); INFLUENZA B NEGATIVE (NEGATIVE); RESPIRATORY SYNCTIAL VIRUS NEGATIVE (Negative); SARS-CoV-2 Xpert Express NEGATIVE (NEGATIVE)
[2022-07-11] MEDS ORDERED: Zofran 4 MG/2 ML VIAL ONE (02:59)
[2022-07-11] MEDS ORDERED: MORPHINE SULFATE 4 MG INJ ONE ×2 (02:59→03:49)
[2022-07-11] MEDS ORDERED: Zofran 4 MG/2 ML VIAL IV PRN (04:51)
[2022-07-11] MEDS: TYLENOL 325 MG PO PRN ×3 (05:30→17:53)
[2022-07-11] MEDS ORDERED: Cyclobenzaprine 10 MG PO ONE (08:30)
[2022-07-11] MEDS ORDERED: TORAdol 30 mg Injection IV ONE (08:31)
[2022-07-11] MEDS ORDERED: Cyclobenzaprine 10 MG PO PRN (09:13)
--- NOTE | 2022-07-11 09:13 | XRAY ---
Indication: Cough. Comparison: December 18, 2017 Portable chest demonstrates new 50-75% right pneumothorax. Heart and mediastinal structures within normal limits and not shifted. Remaining left lung and bony thorax unremarkable.
--- NOTE | 2022-07-11 09:14 | XRAY ---
Indication: Right chest tube placement. Comparison: Taken earlier in the day Portable chest demonstrates new right chest tube with tip projecting over right hilum. Right pneumothorax improved now approximately 25-50%. Remaining heart and left lung unremarkable.
--- NOTE | 2022-07-11 09:15 | XRAY ---
Indication: Follow-up chest tube. Comparison: Taken earlier in the day Portable chest demonstrates stable right chest tube with diminished pneumothorax, now less than 25%. Remaining heart and left lung unremarkable.
[2022-07-11] MEDS: MORPHINE SULFATE 4 MG INJ IV PRN ×3 (09:25→22:19)
--- NOTE | 2022-07-11 10:23 | XRAY ---
Indication: Follow-up pneumothorax. Comparison: Taken earlier in the day. Portable expiration chest again demonstrates right chest tube with continued diminished pneumothorax. Tiny residual right apical pneumothorax. New right base small effusion with subsegmental atelectasis. Remaining heart and left lung unremarkable.
[2022-07-11] MEDS: Nicoderm CQ 21 MG TOP SCH (14:37)
[2022-07-11] MEDS ORDERED: TORAdol 30 mg Injection IV SCH (15:00)
[2022-07-11 15:02] LABS: Bacteria PACKED /HPF (NEGATIVE); Epithelial Cells MODERATE /HPF (FEW); Mucus MANY /HPF (NEGATIVE); WBC >100 /HPF (0-5)
[2022-07-11 15:03] LABS: Appearance SLIGHTLY CLOUDY (CLEAR); Bilirubin NEGATIVE (NEGATIVE); Dipstick done @ ? MAIN LAB; Glucose NEGATIVE (NEGATIVE); Ketones NEGATIVE (NEGATIVE); Nitrite POSITIVE (NEGATIVE); Protein,Urine Dip 30 (Negative); RBC SMALL Ery/ul (0-5); Specific Gravity >=1.030 (1.005-1.025); Urobilinogen 2 mg/dL (0-1)
[2022-07-11 15:09] LABS: Urine Cultured Indicated? YES
[2022-07-11] MEDS: TORAdol 30 mg Injection IV PRN (19:44)
[2022-07-11] MEDS ORDERED: ROCEPHIN 1 Gm-D5w 50 ml Bag** 1 G/50 ML IVPB IV SCH (20:24)
[2022-07-11] MEDS ORDERED: Zithromax 500 MG/ 250 ML NaCl Premix 500 MG/250 ML IVPB IV SCH (22:15)
--- NOTE | 2022-07-11 22:18 | PCM.HP ---
History of Present Illness - Chief Complaint Chief Complaint: Pneumothroax History of Present Illness: is a 26 year old female,daily smoker who developed cough and malaise 2- 3 days before presenting to ER c/o chest pain and dyspnea. CXR shows significant right sided pneumothorax.Chest tube placed with improvement. Patient admitted to [facility] ,requested [facility] consult with Dr Roayl. - Review of Systems Constitutional: Fatigue, Malaise Eyes: No Symptoms Ears, Nose, & Throat: Sinus Drainage Respiratory: Cough, Short Of Breath, Other (tabacco dependance) Cardiac: Chest Pain Abdominal/Gastrointestinal: No Symptoms Genitourinary Symptoms: No Symptoms Musculoskeletal: No Symptoms Skin: No Symptoms Neurological: No Symptoms Psychological: No Symptoms Endocrine: No Symptoms Hematologic/Lymphatic: No Symptoms Medications & Allergies Home Medications: Home Medication List No Reportable Medications [No Reported Medications] 09/13/20 [History Confirmed 07/11/22] Allergies/Adverse Reactions: Allergies Allergy/AdvReac Type Severity Reaction Status Date / Time No Known Drug Allergies Allergy Verified 07/11/22 01:49 - Past Medical History Past Medical History: Yes Neurological History: No Pertinent History ENT History: No Pertinent History Cardiac History: No Pertinent History Respiratory History: No Pertinent History Endocrine Medical History: No Pertinent History Musculoskelatal History: No Pertinent History GI Medical History: No Pertinent History History: No Pertinent History Pyscho-Social History: No Pertinent History Reproductive Disorders: Other Comment: left fallopian tube removed - Female History Hx Last Menstrual Period: last week Are you now?: No - Past Surgical History Past Surgical History: Yes Neuro Surgical History: No Pertinent History Cardiac History: No Pertinent History Respiratory Surgery: No Pertinent History GI Surgical History: No Pertinent History Genitourinary Surgical Hx: No Pertinent History Musculskeletal Surgical Hx: No Pertinent History Female Surgical History: Tubal Ligation Other Surgical History: tubal in november- took lt tube out, drained cyst on rt ovary - Social History Smoking Status: Current some day smoker How long have you smoked: 10yrs Exposure to second hand smoke: Yes Alcohol: None Drug Use: none - Physical Exam Vital Signs: Vital Signs - 24 hr Temp Pulse Pulse Resp BP Pulse Ox 07/11/22 19:57 97.8 F 72 20 112/76 96 07/11/22 19:45 20 07/11/22 19:10 97 07/11/22 15:46 97.8 F 62 18 122/55 96 07/11/22 15:00 20 07/11/22 13:12 97 07/11/22 11:42 16 07/11/22 11:27 97.9 F 60 16 101/58 96 07/11/22 07:49 20 07/11/22 06:54 98.2 F 86 16 115/82 98 07/11/22 06:50 98 07/11/22 05:06 70 18 99 07/11/22 04:55 97.7 F 66 22 131/66 99 07/11/22 04:16 99 07/11/22 04:04 71 16 101/70 98 07/11/22 03:06 86 18 115/98 97 07/11/22 02:54 87 18 140/84 96 07/11/22 02:05 97 07/11/22 01:43 88 07/11/22 01:40 97.1 F 87 18 113/81 99 General Appearance: no apparent distress Neurologic Exam: alert, oriented x 3 Eye Exam: eyes nml inspection Ears, Nose, Throat Exam: moist mucous membranes, other (mild nasal congestion) Neck Exam: normal inspection Respiratory Exam: other (No dyspnea on 2L N/C, right side chest tube in place, local tenderness, good aeration) Cardiovascular Exam: regular rate/rhythm Gastrointestinal/Abdomen Exam: soft, normal bowel sounds (nontender) Pelvic Exam: not done Rectal Exam: not done Back Exam: normal inspection Extremity Exam: normal inspection Wound Assessment: Skin/Wound Assessment Wound/Incision Assessment Start: 07/11/22 07:49 Text: Status: Active Freq: Q4H Protocol: Document 07/11/22 19:45 CW (Rec: 07/11/22 21:12 CW [id number]) Wound/Incision Assessment Right Medial Chest Wound Assessment Shift Assessment Wound Type Incision Dressing Status Dry & Intact,Drainage circled Drainage Amount Minimal Drainage Description Serosanguineous Drainage Odor None/Absent General Appearance Well Approximated,Asymptomatic ,Sutures Intact,Draining Surrounding Tissue [place] Primary Dressing TEGADERM Comment A VERY SCANT AMOUNT OF SEROSANGUINEOUS FLUID NOTED UNDER TEGADERM DRESSING AROUND INCISION SITE, FLUID LOOKS MOSTLY DRIED UP. PT MOVING AROUND MORE TODAY, UP FOR WALKS. DRAINAGE AREA MARKED. NO S/S OF INFECTION OR TUBE MOVEMENT NOTED AT THIS TIME. Wound Photo Photo Taken No Results - Labs Lab/Micro Results: Lab Results-Last 24 Hours 07/11/22 07/11/22 07/11/22 Range/Units 02:00 02:00 02:00 WBC 12.3 H (4.0-10.5) x10^3/uL RBC 4.39 (4.1-5.4) x10^6/uL Hgb 12.9 (12.0-16.0) g/dL Hct 37.8 (35-47) % MCV 86.1 (78-100) fL MCH 29.4 (26-32) pg MCHC 34.1 (32-36) g/dL RDW 12.5 (11.5-14.0) % Plt Count 333 (150-450) x10^3/uL MPV 9.7 (7.5-11.0) fL Gran % 61.1 (36.0-66.0) % Immature Gran % (Auto) 0.3 (0.00-0.4) % Nucleat RBC Rel Count 0.0 (0.00-0.1) % Eos # (Auto) 0.28 (0-0.5) x10^3/uL Immature Gran # (Auto) 0.04 H (0.00-0.03) x10^3u/L Absolute Lymphs (auto) 3.42 (1.0-4.6) x10^3/uL Absolute Monos (auto) 1.01 (0.0-1.3) x10^3/uL Absolute Nucleated RBC 0.00 (0.00-0.01) x10^3u/L Lymphocytes % 27.7 (24.0-44.0) % Monocytes % 8.2 (0.0-12.0) % Eosinophils % 2.3 (0.00-5.0) % Basophils % 0.4 (0.0-0.4) % Absolute Granulocytes 7.53 H (1.4-6.9) x10^3/uL Basophils # 0.05 (0-0.4) x10^3/uL D-Dimer 0.47 (0.0-0.50) mg/L Sodium 138 (137-145) mmol/L Potassium 3.7 (3.5-5.1) mmol/L Chloride 104 (98-107) mmol/L Carbon Dioxide 26 (22-30) mmol/L Anion Gap 12.9 (5-15) MEQ/L BUN 22 H (7-17) mg/dL Creatinine 0.59 (0.52-1.04) mg/dL Estimated GFR > 60.0 ML/MIN Glucose 111 H (74-106) mg/dL Calcium 9.4 (8.4-10.2) mg/dL Total Bilirubin 1.50 H (0.2-1.3) mg/dL AST 34 (14-36) U/L ALT 26 (0-35) U/L Alkaline Phosphatase 58 (38-126) U/L Troponin I (0.000-0.034) ng/mL Serum Total Protein 8.1 (6.3-8.2) g/dL Albumin 4.8 (3.5-5.0) g/dL Urinalys Dipstick Clnc Urine Color (YELLOW) Urine Appearance (CLEAR) Urine pH (5-6) Ur Specific [place] (1.005-1.025) POC Urine Protein Conf (Negative) Urine Ketones (NEGATIVE) Urine Nitrite (NEGATIVE) Urine Bilirubin (NEGATIVE) Urine Urobilinogen (0-1) mg/dL Urine Leukocytes (NEGATIVE) Urine WBC (Auto) (0-5) /HPF Urine RBC (Auto) (0-2) /HPF U Epithel Cells (Auto) (FEW) /HPF Urine Bacteria (Auto) (NEGATIVE) /HPF Urine RBC (0-5) Nestor/ul Urine Mucus (Auto) (NEGATIVE) /HPF Ur Culture Indicated? Urine Glucose (NEGATIVE) mg/dL Influenza Type A Ag (NEGATIVE) Influenza Type B Ag (NEGATIVE) RSV (PCR) (Negative) SARS-CoV-2 (PCR) (NEGATIVE) 07/11/22 07/11/22 07/11/22 Range/Units 02:00 02:10 05:55 WBC (4.0-10.5) x10^3/uL RBC (4.1-5.4) x10^6/uL Hgb (12.0-16.0) g/dL Hct (35-47) % MCV (78-100) fL MCH (26-32) pg MCHC (32-36) g/dL RDW (11.5-14.0) % Plt Count (150-450) x10^3/uL MPV (7.5-11.0) fL Gran % (36.0-66.0) % Immature Gran % (Auto) (0.00-0.4) % Nucleat RBC Rel Count (0.00-0.1) % Eos # (Auto) (0-0.5) x10^3/uL Immature Gran # (Auto) (0.00-0.03) x10^3u/L Absolute Lymphs (auto) (1.0-4.6) x10^3/uL Absolute Monos (auto) (0.0-1.3) x10^3/uL Absolute Nucleated RBC (0.00-0.01) x10^3u/L Lymphocytes % (24.0-44.0) % Monocytes % (0.0-12.0) % Eosinophils % (0.00-5.0) % Basophils % (0.0-0.4) % Absolute Granulocytes (1.4-6.9) x10^3/uL Basophils # (0-0.4) x10^3/uL D-Dimer (0.0-0.50) mg/L Sodium (137-145) mmol/L Potassium (3.5-5.1) mmol/L Chloride (98-107) mmol/L Carbon Dioxide (22-30) mmol/L Anion Gap (5-15) MEQ/L BUN (7-17) mg/dL Creatinine (0.52-1.04) mg/dL Estimated GFR ML/MIN Glucose (74-106) mg/dL Calcium (8.4-10.2) mg/dL Total Bilirubin (0.2-1.3) mg/dL AST (14-36) U/L ALT (0-35) U/L Alkaline Phosphatase (38-126) U/L Troponin I < 0.012 < 0.012 (0.000-0.034) ng/mL Serum Total Protein (6.3-8.2) g/dL Albumin (3.5-5.0) g/dL Urinalys Dipstick Clnc Urine Color (YELLOW) Urine Appearance (CLEAR) Urine pH (5-6) Ur Specific [place] (1.005-1.025) POC Urine Protein Conf (Negative) Urine Ketones (NEGATIVE) Urine Nitrite (NEGATIVE) Urine Bilirubin (NEGATIVE) Urine Urobilinogen (0-1) mg/dL Urine Leukocytes (NEGATIVE) Urine WBC (Auto) (0-5) /HPF Urine RBC (Auto) (0-2) /HPF U Epithel Cells (Auto) (FEW) /HPF Urine Bacteria (Auto) (NEGATIVE) /HPF Urine RBC (0-5) Nestor/ul Urine Mucus (Auto) (NEGATIVE) /HPF Ur Culture Indicated? Urine Glucose (NEGATIVE) mg/dL Influenza Type A Ag NEGATIVE (NEGATIVE) Influenza Type B Ag NEGATIVE (NEGATIVE) RSV (PCR) NEGATIVE (Negative) SARS-CoV-2 (PCR) NEGATIVE (NEGATIVE) 07/11/22 07/11/22 Range/Units 10:10 13:55 WBC (4.0-10.5) x10^3/uL RBC (4.1-5.4) x10^6/uL Hgb (12.0-16.0) g/dL Hct (35-47) % MCV (78-100) fL MCH (26-32) pg MCHC (32-36) g/dL RDW (11.5-14.0) % Plt Count (150-450) x10^3/uL MPV (7.5-11.0) fL Gran % (36.0-66.0) % Immature Gran % (Auto) (0.00-0.4) % Nucleat RBC Rel Count (0.00-0.1) % Eos # (Auto) (0-0.5) x10^3/uL Immature Gran # (Auto) (0.00-0.03) x10^3u/L Absolute Lymphs (auto) (1.0-4.6) x10^3/uL Absolute Monos (auto) (0.0-1.3) x10^3/uL Absolute Nucleated RBC (0.00-0.01) x10^3u/L Lymphocytes % (24.0-44.0) % Monocytes % (0.0-12.0) % Eosinophils % (0.00-5.0) % Basophils % (0.0-0.4) % Absolute Granulocytes (1.4-6.9) x10^3/uL Basophils # (0-0.4) x10^3/uL D-Dimer (0.0-0.50) mg/L Sodium (137-145) mmol/L Potassium (3.5-5.1) mmol/L Chloride (98-107) mmol/L Carbon Dioxide (22-30) mmol/L Anion Gap (5-15) MEQ/L BUN (7-17) mg/dL Creatinine (0.52-1.04) mg/dL Estimated GFR ML/MIN Glucose (74-106) mg/dL Calcium (8.4-10.2) mg/dL Total Bilirubin (0.2-1.3) mg/dL AST (14-36) U/L ALT (0-35) U/L Alkaline Phosphatase (38-126) U/L Troponin I < 0.012 (0.000-0.034) ng/mL Serum Total Protein (6.3-8.2) g/dL Albumin (3.5-5.0) g/dL Urinalys Dipstick Clnc MAIN LAB Urine Color YELLOW (YELLOW) Urine Appearance SLIGHTLY CLOUDY (CLEAR) Urine pH 6.0 (5-6) Ur Specific [place] >=1.030 (1.005-1.025) POC Urine Protein Conf 30 (Negative) Urine Ketones NEGATIVE (NEGATIVE) Urine Nitrite POSITIVE (NEGATIVE) Urine Bilirubin NEGATIVE (NEGATIVE) Urine Urobilinogen 2 (0-1) mg/dL Urine Leukocytes SMALL (NEGATIVE) Urine WBC (Auto) >100 (0-5) /HPF Urine RBC (Auto) 16-25 (0-2) /HPF U Epithel Cells (Auto) MODERATE (FEW) /HPF Urine Bacteria (Auto) PACKED (NEGATIVE) /HPF Urine RBC SMALL (0-5) Nestor/ul Urine Mucus (Auto) MANY (NEGATIVE) /HPF Ur Culture Indicated? YES Urine Glucose NEGATIVE (NEGATIVE) mg/dL Influenza Type A Ag (NEGATIVE) Influenza Type B Ag (NEGATIVE) RSV (PCR) (Negative) SARS-CoV-2 (PCR) (NEGATIVE) - Radiology Impressions Radiology Exams & Impressions: Radiology Procedures Category Date Time Status CHEST 1 VIEW (PORTABLE) Routine Exams 07/11/22 10:00 Completed CHEST 1 VIEW (PORTABLE) Stat Exams 07/11/22 01:57 Completed CHEST 1 VIEW (PORTABLE) Stat Exams 07/11/22 03:49 Completed CHEST 2 VIEWS (PA AND LAT) Routine Exams 07/11/22 03:19 Completed CHEST 2 VIEWS (PA AND LAT) Routine Exams 07/11/22 17:00 Taken - Other Procedures and Tests Respiratory Therapy 07/11/22 04:51 Oxygen Nasal Cannula 2 lpm 07/11/22 05:03 Incentive Spirometry TOLERATED Assessment/Plan (1) Spontaneous pneumothorax Current Visit: Yes Status: Acute Assessment & Plan: chest tube placed in ER,Stable. Await consult [employer] Dr Pressley Code(s): J93.83 - OTHER PNEUMOTHORAX (2) Acute bronchitis Current Visit: Yes Status: Acute Assessment & Plan: RT monitoring, Rx Zithromax IV Code(s): J20.9 - ACUTE BRONCHITIS, UNSPECIFIED (3) Leukocytosis Current Visit: No Status: Acute Code(s): D72.829 - ELEVATED WHITE BLOOD CELL COUNT, UNSPECIFIED (4) UTI (urinary tract infection) Current Visit: Yes Status: Acute Assessment & Plan: culture pending,Rocephin given 1 dose awaiting culture Code(s): N39.0 - URINARY TRACT INFECTION, SITE NOT SPECIFIED
[2022-07-12] MEDS: MORPHINE SULFATE 4 MG INJ IV PRN ×3 (04:24→17:07)
[2022-07-12 05:09] LABS: Absolute Neutrophil Ct (ANC) 4.31 x10^3/uL (1.4-6.9); Basophil (Absolute #) 0.04 x10^3/uL (0-0.4); Eosinophil % 3.3 % (0.00-5.0); Eosinophil (Absolute #) 0.28 x10^3/uL (0-0.5); Hematocrit 32.4 % (35-47); Lymphocyte (Absolute #) 3.07 x10^3/uL (1.0-4.6); Lymphocytes % 36.1 % (24.0-44.0); Mean Cell Volume 86.6 fL (78-100); Mean Corpuscular Hemoglobin 29.4 pg (26-32); Mean Platelet Volume 10.1 fL (7.5-11.0); Monocyte (Absolute #) 0.77 x10^3/uL (0.0-1.3); Monocytes % 9.1 % (0.0-12.0); Neutrophil % 50.6 % (36.0-66.0); Platelet Count 252 x10^3/uL (150-450); Red Blood Count 3.74 x10^6/uL (4.1-5.4); Red Cell Distribution Width 12.8 % (11.5-14.0); White Blood Count 8.5 x10^3/uL (4.0-10.5)
[2022-07-12 05:35] LABS: ALBUMIN 3.5 g/dL (3.5-5.0); ALKALINE PHOSPHATASE 44 U/L (38-126); BLOOD UREA NITROGEN 24 mg/dL (7-17); CHLORIDE 106 mmol/L (98-107); Calcium 8.6 mg/dL (8.4-10.2); Carbon Dioxide 24 mmol/L (22-30); Creatinine 1 0.59 mg/dL (0.52-1.04); EST GLOMERULAR FILTRATION RATE > 60.0 ML/MIN; Glucose 99 mg/dL (74-106); SGOT/AST 28 U/L (14-36); SGPT/ALT 22 U/L (0-35); SODIUM 136 mmol/L (137-145); Total Protein 6.1 g/dL (6.3-8.2)
--- NOTE | 2022-07-12 08:45 | XRAY ---
Indication: Follow-up pneumothorax. Comparison: Taken earlier in the day PA/lateral chest obtained in inspiration and expiration demonstrates clearing of previous right base effusion/atelectasis. Stable tiny right apical pneumothorax with right chest tube in situ. Remaining heart and lungs unremarkable.
--- NOTE | 2022-07-12 09:57 | XRAY ---
Indication: Follow-up pneumothorax. Comparison: One day earlier. PA/lateral chest obtained in inspiration and expiration unchanged again demonstrating tiny right apical pneumothorax with right chest tube in situ. Remaining heart and lungs unremarkable.
[2022-07-12] MEDS: Nicoderm CQ 21 MG TOP SCH (10:41)
--- NOTE | 2022-07-12 13:41 | CONS ---
CONSULT DATE: 07/12/2022 REASON FOR CONSULT: Right-sided spontaneous pneumothorax. HISTORY: Miss Kathryn Alonso is a 26-year-old woman without any known pulmonary problems who developed sudden onset right-sided pain along with shortness of breath leading to an emergency room visit. A chest x-ray revealed right-sided spontaneous moderate pneumothorax. She had Heimlich valve placed with subsequent re-expansion of the lung. Her x-ray performed today shows questionable apical small pneumothorax. At the time of my evaluation, the patient appears comfortable other than pleuritic pain due to the catheter rubbing against the pleura, she voices no other complaints. She has had no prior pulmonary problems. PAST MEDICAL HISTORY: As above. PAST SURGICAL HISTORY: No recent surgery. PERSONAL AND SOCIAL HISTORY: She smokes. MEDICATIONS: Home and current medications are reviewed. ALLERGIES: NKDA. PHYSICAL EXAMINATION: This is a young woman who appears comfortable. Vital signs noted. HEENT: Normocephalic. Oral exam unremarkable. CVS: First and second heart sounds are normal, regular, rhythmic. RESPIRATORY: Shows good breath sounds bilaterally. ABDOMEN: Soft. EXTREMITIES: No edema is noted. LABORATORY DATA AND TESTS: Labs and x-rays reviewed. Hemoglobin 11. ASSESSMENT: This is a 26-year-old woman admitted with: 1) Right side spontaneous pneumothorax which has resolved with Heimlich valve. 2) Nicotine addiction. 3) Mild anemia. RECOMMENDATIONS: 1) X-ray this morning has shown near complete expansion. 2) Will clamp Heimlich valve, follow by chest x-ray in half hour. Will perform expiratory films. If no recurrence of pneumothorax is noted, will discontinue Heimlich valve, to be followed by another x-ray an hour later. The patient may be discharged home if no pneumothorax is identified on either with outpatient follow up. 3) Will check [id number] phenotype. 4) CT chest at a later date to assess for any pleural bleb. 5) Need for complete smoking cessation was stressed. Further recommendations pending clinical improvement. I will follow up in outpatient setting. Thank you for allowing me to participate in the care of your patient.
--- NOTE | 2022-07-12 14:05 | XRAY ---
Indication: Follow-up pneumothorax. Comparison: Taken earlier in the day X 2. Portable chest obtained in expiration unchanged again demonstrating tiny right apical pneumothorax with right chest tube in situ. Remaining heart and lungs unremarkable.
[2022-07-12] MEDS: TORAdol 30 mg Injection IV PRN (14:30)
--- NOTE | 2022-07-12 16:27 | XRAY ---
Indication: Chest tube removal. Comparison: Taken earlier in the day X 3. Portable chest obtained in expiration demonstrates right chest tube removal with stable tiny right apical pneumothorax. Remaining heart and lungs unremarkable.
[2022-07-12 16:58] VITALS: BP 120/68; PULSE 56; O2SAT 98
[2022-07-12] MEDS ORDERED: Zithromax 500 MG/ 250 ML NaCl Premix 500 MG/250 ML IVPB IV SCH (22:00)
[2022-07-12] MEDS ORDERED: ROCEPHIN 1 Gm-D5w 50 ml Bag** 1 G/50 ML IVPB IV SCH (22:00)
== END 2022-07-12 17:40 | disposition home or self-care (01) ==
LOC: ED 01:39 → MED SURG 04:49
PROVIDERS: ADMIT Family Medicine; ATTEND Family Medicine
DX: J93.11 Primary spontaneous pneumothorax (principal); J20.9 Acute bronchitis, unspecified; D72.829 Elevated white blood cell count, unspecified; N39.0 Urinary tract infection, site not specified; Z72.0 Tobacco use; Z20.828 Contact with and (suspected) exposure to other viral communicable diseases
CPT/HCPCS: 0241U; 36000; 36415; 71045; 71046; 80053; 81015; 82103; 82104; 84484; 85025; 85379; 87086; 93005; 94760; 99284; 99291; 87077; 87186; G0378; J0456; J0696; J1885; J2270; J2405; A9270-GY

== ENCOUNTER 2022-10-10 23:46 | Emergency (ER) | payer OTHER ==
[2022-10-11 00:23] VITALS: O2SAT 100
[2022-10-11] MEDS ORDERED: Sodium Chloride 0.9% 1000 ML 1,000 ML IV STA (00:23)
[2022-10-11] MEDS ORDERED: TYLENOL 325 MG PO ONE (00:23)
[2022-10-11] MEDS ORDERED: TORAdol 30 mg Injection IV ONE (00:23)
[2022-10-11] MEDS ORDERED: Compazine 10 MG/2 ML IV ONE (00:25)
--- NOTE | 2022-10-11 00:33 | ERPHSYRPT ---
- History of Present Illness Time Seen by Provider: 10/11/22 00:31 Exam Limitations: no limitations Patient Subjective Stated Complaint: pt states she has a migraine, vomiting and nausea Triage Nursing Assessment: pt alert and oriented, answers questions approp. pt ambulatory with steady gait noted. respirations nonlabored. skin warm and dry. pupils equal and reactive. bilat upper and lower ext strength equal and wnl. Physician History: Patient is a 27-year-old female presents to emergency department for evaluation of migraine nausea and vomiting. Patient's migraine is typical of her usual recurrent migraine headaches. Migraine started this evening. Patient states she vomited. No trauma. No fever. No neck pain. Mild photophobia. Mild auditory sensitivity. Symptoms are mild to moderate in intensity. No specific worsening improving factors. Patient denies chest pain shortness of breath. Patient states she is otherwise healthy. She is a smoker however. Patient voices no other complaints or concerns at this time. Portions of this note were created with voice recognition technology. There may be grammatical, spelling, punctuation or sound alike errors Timing/Duration: today Severity: moderate Modifying Factors: Improves With: nothing Associated Symptoms: other (Photophobia auditory sensitivity) Allergies/Adverse Reactions: No Known Drug Allergies Allergy (Verified 10/11/22 00:25) Home Medications: No Reportable Medications [No Reported Medications] 09/13/20 [History] Hx Tetanus, Diphtheria Vaccination/Date Given: Yes Hx Influenza Vaccination/Date Given: No Hx Pneumococcal Vaccination/Date Given: No Immunizations Up to Date: Yes Travel Risk - International Travel Have you traveled outside of the country in past 3 weeks: No - Coronavirus Screening Are you exhibiting any of the following symptoms?: Yes Symptoms: Cough: New Onset, Vomiting/Diarrhea, Headaches/Body Aches/Fatigue Close contact with a COVID-19 positive Pt in past 14-21 Days: No - Vaccine Status Have you recieved a Covid-19 vaccination: No - Review of Systems Constitutional: No Symptoms, No Fever, No Chills Eyes: No Symptoms Ears, Nose, & Throat: No Symptoms Respiratory: No Symptoms, No Cough, No Dyspnea Cardiac: No Symptoms, No Chest Pain, No Edema, No Syncope Abdominal/Gastrointestinal: No Symptoms, No Abdominal Pain, No Nausea, No Vomiting, No Diarrhea Genitourinary Symptoms: No Symptoms, No Dysuria Musculoskeletal: No Symptoms, No Back Pain, No Neck Pain Skin: No Symptoms, No Rash Neurological: No Symptoms, No Dizziness, No Focal Weakness, No Sensory Changes Psychological: No Symptoms Endocrine: No Symptoms Hematologic/Lymphatic: No Symptoms Immunological/Allergic: No Symptoms All Other Systems: Reviewed and Negative - Past Medical History Pertinent Past Medical History: Yes Neurological History: No Pertinent History ENT History: No Pertinent History Cardiac History: No Pertinent History Respiratory History: No Pertinent History Endocrine Medical History: No Pertinent History Musculoskeletal History: No Pertinent History GI Medical History: No Pertinent History History: No Pertinent History Psycho-Social History: No Pertinent History Female Reproductive Disorders: Other Other Medical History: left fallopian tube removed d/t ectopic . spontaneous pnuemo - Past Surgical History Past Surgical History: Yes Neuro Surgical History: No Pertinent History Cardiac: No Pertinent History Respiratory: No Pertinent History Gastrointestinal: No Pertinent History Genitourinary: No Pertinent History Musculoskeletal: No Pertinent History Female Surgical History: Tubal Ligation Other Surgical History: tubal in november- took lt tube out, drained cyst on rt ovary - Social History Smoking Status: Current every day smoker How long have you smoked: 10yrs Exposure to second hand smoke: Yes Drug Use: none Patient Lives Alone: No - Female History Hx Last Menstrual Period: 08/30/22 Hx Now: No - Nursing Vital Signs Nursing Vital Signs: Initial Vital Signs Temperature 97.9 F 10/11/22 00:07 Pulse Rate 72 10/11/22 00:07 Respiratory Rate 16 10/11/22 00:07 Blood Pressure 112/79 10/11/22 00:07 O2 Sat by Pulse Oximetry 100 10/11/22 00:07 Pain Scale Pain Intensity 5 - Physical Exam General Appearance: no apparent distress, alert Eye Exam: PERRL/EOMI, eyes nml inspection Ears, Nose, Throat Exam: normal ENT inspection, TMs normal, pharynx normal, moist mucous membranes Neck Exam: normal inspection, non-tender, supple, full range of motion Respiratory Exam: normal breath sounds, lungs clear, airway intact, No respirato ry distress Cardiovascular Exam: regular rate/rhythm, normal heart sounds, normal peripheral pulses Gastrointestinal/Abdomen Exam: soft, normal bowel sounds, No tenderness, No mass Back Exam: normal inspection, normal range of motion, No CVA tenderness, No vertebral tenderness Extremity Exam: normal inspection, normal range of motion, pelvis stable Neurologic Exam: alert, oriented x 3, cooperative, normal mood/affect, nml cerebellar function, nml station & gait, sensation nml, No motor deficits Skin Exam: normal color, warm, dry, No rash Lymphatic Exam: No adenopathy SpO2 Interpretation: normal SpO2: 100 O2 Delivery: Room Air - Course Nursing assessment & vital signs reviewed: Yes Ordered Tests: Active Orders 24 hr Category Date Time Status IV Insertion STAT Care 10/11/22 00:23 Active HCG,QUALITATIVE URINE Stat Lab 10/11/22 00:40 Completed UA W/RFX CULTURE Stat Lab 10/11/22 00:40 Completed Medication Summary Discontinued Medications Generic Name Dose Route Start Last Admin Trade Name Freq PRN Reason Stop Dose Admin Acetaminophen 975 mg 10/11/22 00:23 10/11/22 01:37 Acetaminophen 325 Mg Tablet PO 10/11/22 00:24 975 mg STAT ONE Administration Acetaminophen Confirm 10/11/22 01:36 Acetaminophen 325 Mg Tablet Administered 10/11/22 01:37 Dose 975 mg .ROUTE .STK-MED ONE Sodium Chloride 1,000 mls @ 999 mls/hr 10/11/22 00:23 10/11/22 01:42 Sodium Chloride 0.9% 1000 Ml IV 10/11/22 01:23 Infused .Q1H1M STA Infusion Sodium Chloride Confirm 10/11/22 00:41 Sodium Chloride 0.9% 1000 Ml Administered 10/11/22 00:42 Dose 1,000 mls @ ud .ROUTE .STK-MED ONE Ketorolac Tromethamine 30 mg 10/11/22 00:23 10/11/22 00:50 Ketorolac Tromethamine 30 Mg/Ml Inj IV 10/11/22 00:24 30 mg STAT ONE Administration Ketorolac Tromethamine Confirm 10/11/22 00:41 Ketorolac Tromethamine 30 Mg/Ml Inj Administered 10/11/22 00:42 Dose 30 mg .ROUTE .STK-MED ONE Prochlorperazine Edisylate 10 mg 10/11/22 00:25 10/11/22 00:51 Prochlorperazine Edisylate 10 Mg/2 Ml Vial IV 10/11/22 00:26 10 mg STAT ONE Administration Prochlorperazine Edisylate Confirm 10/11/22 00:41 Prochlorperazine Edisylate 10 Mg/2 Ml Vial Administered 10/11/22 00:42 Dose 10 mg .ROUTE .STK-MED ONE Lab/Rad Data: Laboratory Results 10/11/22 10/11/22 Range/Units 00:40 00:40 Urinalys Dipstick Clnc MAIN LAB Urine Color YELLOW (YELLOW) Urine Appearance TURBID (CLEAR) Urine pH 8.5 A (5-6) Ur Specific Clarissa 1.020 (1.005-1.025) POC Urine Protein Conf TRACE A (Negative) Urine Ketones NEGATIVE (NEGATIVE) Urine Nitrite NEGATIVE (NEGATIVE) Urine Bilirubin NEGATIVE (NEGATIVE) Urine Urobilinogen 0.2 (0-1) mg/dL Urine Leukocytes NEGATIVE (NEGATIVE) Urine WBC (Auto) NONE (0-5) /HPF Urine RBC (Auto) NONE (0-2) /HPF U Epithel Cells (Auto) RARE (FEW) /HPF Urine Bacteria (Auto) FEW A (NEGATIVE) /HPF Urine RBC NEGATIVE (0-5) Nestor/ul Urine Mucus (Auto) MANY A (NEGATIVE) /HPF Ur Culture Indicated? NO Urine Glucose NEGATIVE (NEGATIVE) mg/dL Urine HCG, Qual NEGATIVE (Negative) - Progress Progress: improved Progress Note: Patient reassessed. Headache resolved. Repeat neuro exam within normal limits. no indication for further work-up at this time. Will discharge home. Patient agrees to follow-up with primary care doctor within 48 hours. Portions of this note were created with voice recognition technology. There may be grammatical, spelling, punctuation or sound alike errors 10/11/22 01:58 Counseled pt/family regarding: lab results, diagnosis, need for follow-up - Departure Departure Disposition: Home Clinical Impression: Migraine Condition: Stable Critical Care Time: No Referrals: DOCTOR,NO FAMILY [Primary Care Provider] - Follow up/PCP as directed ANETTE COHN [ACTIVE STAFF] - Follow up/PCP as directed Additional Instructions: Discharge/Care Plan CHELA HUDSON was seen on 10/11/22 in the Emergency Room. The patient was counseled regarding Diagnosis,Lab results, Imaging studies, need for follow up and when to return to the Emergency Room. Prescriptions given: Discharge Note I have spoken with the patient and/or caregivers. I have explained the patient's condition, diagnosis and treatment plan based on the information available to me at this time. I have answered the patient's and/or caregiver's questions and addressed any concerns. The patient and/or caregivers have as good understanding of the patient's diagnosis, condition and treatment plan as can be expected at this point. The vital signs have been stable. The patient's condition is stable and appropriate for discharge from the emergency department. The patient will pursue further outpatient evaluation with the primary care physician or other designated or consulting physician as outlined in the discharge instructions. The patient and/or caregivers are agreeable to this plan of care and follow-up instructions have been explained in detail. The patient and/or caregivers have received these instruction. The patient/and or caregivers are aware that any significant change in condition or worsening of symptoms should prompt an immediate return to this or the closest emergency department or call 911.
[2022-10-11] MEDS ORDERED: TORAdol 30 mg Injection ONE (00:41)
[2022-10-11] MEDS ORDERED: Sodium Chloride 0.9% 1000 ML 1,000 ML ONE (00:41)
[2022-10-11] MEDS ORDERED: Compazine 10 MG/2 ML ONE (00:41)
[2022-10-11 00:47] LABS: Appearance TURBID (CLEAR); Bilirubin NEGATIVE (NEGATIVE); Dipstick done @ ? MAIN LAB; Glucose NEGATIVE (NEGATIVE); Ketones NEGATIVE (NEGATIVE); Nitrite NEGATIVE (NEGATIVE); Ph 8.5 (5-6); Protein,Urine Dip TRACE (Negative); RBC NEGATIVE Ery/ul (0-5); Urobilinogen 0.2 mg/dL (0-1)
[2022-10-11 00:50] LABS: Bacteria FEW /HPF (NEGATIVE); Epithelial Cells RARE /HPF (FEW); Mucus MANY /HPF (NEGATIVE)
[2022-10-11 00:51] LABS: Urine Cultured Indicated? NO
[2022-10-11] MEDS ORDERED: TYLENOL 325 MG ONE (01:36)
[2022-10-11 02:10] VITALS: BP 107/63; PULSE 68
== END 2022-10-11 02:03 | disposition home or self-care (01) ==
LOC: ED 23:46
DX: G43.909 Migraine, unspecified, not intractable, without status migrainosus (principal); R11.2 Nausea with vomiting, unspecified; Z28.310 Unvaccinated for COVID-19; Z72.0 Tobacco use
CPT/HCPCS: 36000; 81015; 81025; 96360; 96374; 96375; 99284; J1885; A9270-GY

== ENCOUNTER 2023-01-10 07:38 | Emergency (ER) | payer OTHER ==
[2023-01-10 07:48] VITALS: BP 116/58; PULSE 78; O2SAT 100
--- NOTE | 2023-01-10 07:56 | ERPHSYRPT ---
- History of Present Illness Time Seen by Provider: 01/10/23 07:43 Source: patient Exam Limitations: no limitations Patient Subjective Stated Complaint: Toothache Triage Nursing Assessment: Patient ambulated back to ED and transferred self to bed. Patient A+OX 3. Patient's skin pink, warm and dry. Patient complains of right lower side toothpain for the past few days that has gotten worse today. Patient states pain is 6/10. Right lower tooth noted to be decayed with red gums. Physician History: Right lower tooth pain. History of smoking and many dental problems. Unable to see her dentist. Therefore, presents to the emergency department today. No fever, chills, vomiting, systemic signs of illness. No falls or other trauma Allergies/Adverse Reactions: No Known Drug Allergies Allergy (Verified 01/10/23 07:42) Hx Tetanus, Diphtheria Vaccination/Date Given: Yes Hx Influenza Vaccination/Date Given: No Hx Pneumococcal Vaccination/Date Given: No Immunizations Up to Date: Yes Travel Risk - International Travel Have you traveled outside of the country in past 3 weeks: No - Coronavirus Screening Are you exhibiting any of the following symptoms?: No Close contact with a COVID-19 positive Pt in past 14-21 Days: No - Vaccine Status Have you recieved a Covid-19 vaccination: No - Review of Systems Constitutional: No Fever, No Chills Eyes: No Symptoms Ears, Nose, & Throat: No Symptoms Respiratory: No Cough, No Dyspnea Cardiac: No Chest Pain, No Edema, No Syncope Abdominal/Gastrointestinal: No Abdominal Pain, No Nausea, No Vomiting, No Diarrhea Genitourinary Symptoms: No Dysuria Musculoskeletal: No Back Pain, No Neck Pain Skin: No Rash Neurological: No Dizziness, No Focal Weakness, No Sensory Changes Psychological: No Symptoms Endocrine: No Symptoms All Other Systems: Reviewed and Negative - Past Medical History Pertinent Past Medical History: Yes Neurological History: No Pertinent History ENT History: No Pertinent History Cardiac History: No Pertinent History Respiratory History: No Pertinent History Endocrine Medical History: No Pertinent History Musculoskeletal History: No Pertinent History GI Medical History: No Pertinent History History: No Pertinent History Psycho-Social History: No Pertinent History Female Reproductive Disorders: Other Other Medical History: left fallopian tube removed d/t ectopic . spontaneous pnuemo - Past Surgical History Past Surgical History: Yes Neuro Surgical History: No Pertinent History Cardiac: No Pertinent History Respiratory: No Pertinent History Gastrointestinal: No Pertinent History Genitourinary: No Pertinent History Musculoskeletal: No Pertinent History Female Surgical History: Tubal Ligation Other Surgical History: tubal in november- took lt tube out, drained cyst on rt ovary - Social History Smoking Status: Current every day smoker How long have you smoked: 10yrs Exposure to second hand smoke: Yes Drug Use: none Patient Lives Alone: No - Female History Hx Last Menstrual Period: last week Hx Now: No - Nursing Vital Signs Nursing Vital Signs: Initial Vital Signs Temperature 96.9 F 01/10/23 07:42 Pulse Rate 78 01/10/23 07:42 Respiratory Rate 18 01/10/23 07:42 Blood Pressure 116/58 01/10/23 07:42 O2 Sat by Pulse Oximetry 100 01/10/23 07:42 Pain Scale Pain Intensity 6 - Physical Exam General Appearance: no apparent distress, alert Eye Exam: PERRL/EOMI, eyes nml inspection Ears, Nose, Throat Exam: normal ENT inspection, TMs normal, pharynx normal, moist mucous membranes Neck Exam: normal inspection, non-tender, supple, full range of motion Respiratory Exam: normal breath sounds, lungs clear, No respiratory distress Cardiovascular Exam: regular rate/rhythm, normal heart sounds, normal peripheral pulses Gastrointestinal/Abdomen Exam: soft, normal bowel sounds, No tenderness, No mass Back Exam: normal inspection, normal range of motion, No CVA tenderness, No vertebral tenderness Extremity Exam: normal inspection, normal range of motion, pelvis stable Neurologic Exam: alert, oriented x 3, cooperative, normal mood/affect, nml cerebellar function, nml station & gait, sensation nml, No motor deficits Skin Exam: normal color, warm, dry, No rash Lymphatic Exam: No adenopathy SpO2 Interpretation: normal SpO2: 100 Comments: 01/10/23 09:16 Poor dentition, several dental caries. No signs of abscess. No submandibular swelling, signs or symptoms No trismus, able to fully extend neck, normal range of motion of neck without pain. Uvula is midline, no swelling of the mouth, noraml oropharynx. No exudate, no signs of meningitis, no floor of mouth swelling, no hot potato voice on exam. No buccal swelling, no gum bleeding. - Course Nursing assessment & vital signs reviewed: Yes - Progress Progress: improved Progress Note: 01/10/23 09:21 Patient will need close follow-up with dentist. Patient was given a list of dentist to follow-up with. We will place patient on clindamycin for the poor dental caries. Although no obvious signs of abscess or drainable fluid. Counseled pt/family regarding: diagnosis, need for follow-up - Departure Departure Disposition: Home Clinical Impression: Pain due to dental caries Condition: Stable Critical Care Time: No Referrals: DOCTOR,NO FAMILY [Primary Care Provider] - Follow up/PCP as directed Instructions: Dental Pain (DC) Prescriptions: Clindamycin HCl 150 mg [Cleocin 150 mg Capsule] 2 cap PO QID #56 cap
== END 2023-01-10 08:01 | disposition home or self-care (01) ==
LOC: ED 07:38
DX: K02.9 Dental caries, unspecified (principal); K08.89 Other specified disorders of teeth and supporting structures; Z28.310 Unvaccinated for COVID-19; Z72.0 Tobacco use
CPT/HCPCS: 99281

== ENCOUNTER 2024-05-15 13:19 | Emergency (ER) | payer OTHER ==
[2024-05-15 13:32] VITALS: TEMP 98.6
[2024-05-15 14:04] LABS: Absolute Neutrophil Ct (ANC) 4.35 x10^3/uL (1.56-6.13); BASOPHIL % 0.5 % (0.1-1.2); Basophil (Absolute #) 0.04 x10^3/uL (0.01-0.08); Eosinophil % 2.3 % (0.7-5.8); Eosinophil (Absolute #) 0.17 x10^3/uL (0.04-0.36); Hematocrit 32.4 % (34.1-44.9); IMMATURE GRAN # 0.03 x10^3u/L (0.001-0.031); IMMATURE GRAN % 0.4 % (0.001-0.429); Lymphocyte (Absolute #) 2.27 x10^3/uL (1.18-3.74); Lymphocytes % 30.2 % (19.3-51.7); Mean Cell Volume 87.3 fL (79.4-94.8); Mean Corpuscular Hemoglobin 29.6 pg (25.6-32.2); Mean Platelet Volume 9.1 fL (9.4-12.3); Monocyte (Absolute #) 0.65 x10^3/uL (0.24-0.86); Monocytes % 8.7 % (4.7-12.5); Neutrophil % 57.9 % (34.0-71.1); Platelet Count 244 x10^3/uL (182-369); Red Blood Count 3.71 x10^6/uL (3.93-5.22); Red Cell Distribution Width 12.8 % (11.7-14.4); White Blood Count 7.5 x10^3/uL (3.98-10.04)
[2024-05-15 14:16] LABS: HCG SERUM TEST NEGATIVE (NEGATIVE)
[2024-05-15 14:28] LABS: ANION GAP 12.6 MEQ/L (5-15); Calcium 8.9 mg/dL (8.4-10.2); Creatinine 1 0.58 mg/dL (0.52-1.04); EST GLOMERULAR FILTRATION RATE 126.3 ML/MIN; MAGNESIUM 1.9 mg/dL (1.6-2.3); Potassium 3.4 mmol/L (3.5-5.1); Total Protein 6.7 g/dL (6.3-8.2)
[2024-05-15] MEDS ORDERED: DUONEB 0.5-3 MG/3 ml Neb IH ONE (14:40)
[2024-05-15] MEDS: DUONEB 0.5-3 MG/3 ml Neb IH ONE (14:41)
[2024-05-15 15:11] VITALS: BP 129/78; PULSE 64; RESP 15; O2SAT 99
--- NOTE | 2024-05-15 15:46 | ERPHSYRPT ---
- History of Present Illness Time Seen by Provider: 05/15/24 13:40 Source: patient Exam Limitations: no limitations Patient Subjective Stated Complaint: pt c/o of left sided lung pain, pt has a hx of right sided lung collapse and has 5 "blips" on her lungs, pt states that she has had the pain for over 3 weeks but just got out of long-term on the 2nd Triage Nursing Assessment: Pt brought to the ER by her aunt, vitals wnl, rates pain as 7/10 when she takes a breath, states that it feels exactly like her right side did when it collapsed except it does not hurt up in her neck, pulses normal, skin n/w/d, doesn't appear to be in any distress Physician History: 28 years old female with history of tobacco abuse, pneumothorax on the right in the past presented in the ER with left lower anterior chest pain for the last 3 months. Patient reports she was incarcerated and could not seek medical attention. Reports it hurts to exhale. Feels a little short of breath at times. Denies any fever chills or cough. No abdominal pain nausea or vomiting reported. Patient reports 4-5/10 intensity pain. Worried about having another pneumothorax. Reports having similar symptoms last time but had some shoulder blade area pain which is not there at this time. Allergies/Adverse Reactions: No Known Drug Allergies Allergy (Verified 05/15/24 13:32) Hx Tetanus, Diphtheria Vaccination/Date Given: Yes Hx Influenza Vaccination/Date Given: No Hx Pneumococcal Vaccination/Date Given: No Travel Risk - International Travel Have you traveled outside of the country in past 3 weeks: No - Emerging Infectious Disease Are you exhibiting symptoms associated with any current EIDs: No - Review of Systems Constitutional: No Symptoms Eyes: No Symptoms Ears, Nose, & Throat: No Symptoms Respiratory: Dyspnea Cardiac: Chest Pain Abdominal/Gastrointestinal: No Symptoms Genitourinary Symptoms: No Symptoms Skin: No Symptoms Neurological: No Symptoms Psychological: No Symptoms Endocrine: No Symptoms - Past Medical History Pertinent Past Medical History: Yes Neurological History: No Pertinent History ENT History: No Pertinent History Cardiac History: No Pertinent History Respiratory History: No Pertinent History Endocrine Medical History: No Pertinent History Musculoskeletal History: No Pertinent History GI Medical History: No Pertinent History History: No Pertinent History Psycho-Social History: No Pertinent History Female Reproductive Disorders: Other Other Medical History: left fallopian tube removed d/t ectopic . spontaneous pnuemo - Past Surgical History Past Surgical History: Yes Neuro Surgical History: No Pertinent History Cardiac: No Pertinent History Respiratory: No Pertinent History Gastrointestinal: No Pertinent History Genitourinary: No Pertinent History Musculoskeletal: No Pertinent History Female Surgical History: Tubal Ligation Other Surgical History: tubal in november- took lt tube out, drained cyst on rt ovary - Female History Hx Last Menstrual Period: 2 weeks ago Hx Now: (unkn) - Social History Smoking Status: Current every day smoker How long have you smoked: 10yrs Exposure to second hand smoke: Yes Drug Use: none Patient Lives Alone: No - Social Determinants of Health Will the patient participate in the screening: Declined to provide - Nursing Vital Signs Nursing Vital Signs: Initial Vital Signs Temperature 98.6 F 05/15/24 13:23 Pulse Rate 99 H 05/15/24 13:23 Respiratory Rate 18 05/15/24 13:23 Blood Pressure 132/82 05/15/24 13:23 O2 Sat by Pulse Oximetry 97 05/15/24 13:23 Pain Scale Pain Intensity 7 - Physical Exam General Appearance: no apparent distress, alert Eye Exam: PERRL/EOMI Ears, Nose, Throat Exam: hearing grossly normal, normal pharynx Neck Exam: normal inspection, non-tender, supple, full range of motion Respiratory Exam: normal breath sounds, chest tenderness (Left anterior lower chest with no crepitus. No rash. No flail segment.), lungs clear Cardiovascular/Chest Exam: normal heart sounds, regular rate/rhythm Abdominal/Gastrointestinal Exam: soft, normal bowel sounds, No tenderness Extremity Exam: non-tender, normal range of motion Neurologic Exam: alert, oriented x 3, cooperative, buffer automatic II-XII nml as tested Skin Exam: normal color SpO2 Interpretation: normal SpO2: 99 O2 Delivery: Room Air - Course EKG Interpreted by Me: RATE ([id number]), Sinus Rhythm, NORMAL AXIS, NORMAL INTERVALS, NORMAL QRS Ordered Tests: Active Orders 24 hr Category Date Time Status CHEST 1 VIEW (PORTABLE) Stat Exams 05/15/24 13:41 Taken CBC W DIFF Stat Lab 05/15/24 14:00 Completed CMP Stat Lab 05/15/24 14:00 Completed D-DIMER QUANTITATIVE Stat Lab 05/15/24 14:00 Completed HCG QUALITATIVE, SERUM Stat Lab 05/15/24 14:00 Completed MAGNESIUM Stat Lab 05/15/24 14:00 Completed NT PRO BNPII Stat Lab 05/15/24 14:00 Completed TROPONIN Q4H Lab 05/15/24 14:00 Completed TROPONIN Q4H Lab 05/15/24 17:45 Ordered TROPONIN Q4H Lab 05/15/24 21:45 Ordered Medication Summary Discontinued Medications Generic Name Dose Route Start Last Admin Trade Name Omarq PRN Reason Stop Dose Admin Albuterol/Ipratropium 3 ml 05/15/24 14:15 05/15/24 14:41 Ipratropium/Albuterol Sulfate 3 Ml Ampul.Neb IH 05/15/24 14:16 3 ml STAT ONE Administration Albuterol/Ipratropium Confirm 05/15/24 14:40 Ipratropium/Albuterol Sulfate 3 Ml Ampul.Neb Administered 05/15/24 14:41 Dose 3 ml IH .STK-MED ONE Lab/Rad Data: Laboratory Result Diagrams 05/15/24 14:00 05/15/24 14:00 Laboratory Results 05/15/24 05/15/24 05/15/24 Range/Units 14:00 14:00 14:00 WBC (3.98-10.04) x10^3/uL RBC (3.93-5.22) x10^6/uL Hgb (11.2-15.7) g/dL Hct (34.1-44.9) % MCV (79.4-94.8) fL MCH (25.6-32.2) pg MCHC (32.2-35.5) g/dL RDW (11.7-14.4) % Plt Count (182-369) x10^3/uL MPV (9.4-12.3) fL Gran % (34.0-71.1) % Immature Gran % (Auto) (0.001-0.429) % Nucleat RBC Rel Count (0.00-0.2) % Eos # (Auto) (0.04-0.36) x10^3/uL Immature Gran # (Auto) (0.001-0.031) x10^3u/L Absolute Lymphs (auto) (1.18-3.74) x10^3/uL Absolute Monos (auto) (0.24-0.86) x10^3/uL Absolute Nucleated RBC (0.00-0.012) x10^3u/L Lymphocytes % (19.3-51.7) % Monocytes % (4.7-12.5) % Eosinophils % (0.7-5.8) % Basophils % (0.1-1.2) % Absolute Granulocytes (1.56-6.13) x10^3/uL Basophils # (0.01-0.08) x10^3/uL D-Dimer 0.27 (0.0-0.50) mg/L Sodium (135-145) mmol/L Potassium (3.5-5.1) mmol/L Chloride (98-107) mmol/L Carbon Dioxide (22-30) mmol/L Anion Gap (5-15) MEQ/L BUN (7-17) mg/dL Creatinine (0.52-1.04) mg/dL Estimated GFR ML/MIN Glucose (74-106) mg/dL Calcium (8.4-10.2) mg/dL Magnesium (1.6-2.3) mg/dL Total Bilirubin (0.2-1.3) mg/dL AST (14-36) U/L ALT (0-35) U/L Alkaline Phosphatase (38-126) U/L Troponin I < 0.012 (0.000-0.033) ng/mL NT-Pro-B Natriuret Pep (<300) pg/mL Serum Total Protein (6.3-8.2) g/dL Albumin (3.5-5.0) g/dL Serum HCG, Qual NEGATIVE (NEGATIVE) 05/15/24 05/15/24 Range/Units 14:00 14:00 WBC 7.5 (3.98-10.04) x10^3/uL RBC 3.71 L (3.93-5.22) x10^6/uL Hgb 11.0 L (11.2-15.7) g/dL Hct 32.4 L (34.1-44.9) % MCV 87.3 (79.4-94.8) fL MCH 29.6 (25.6-32.2) pg MCHC 34.0 (32.2-35.5) g/dL RDW 12.8 (11.7-14.4) % Plt Count 244 (182-369) x10^3/uL MPV 9.1 L (9.4-12.3) fL Gran % 57.9 (34.0-71.1) % Immature Gran % (Auto) 0.4 (0.001-0.429) % Nucleat RBC Rel Count 0.0 (0.00-0.2) % Eos # (Auto) 0.17 (0.04-0.36) x10^3/uL Immature Gran # (Auto) 0.03 (0.001-0.031) x10^3u/L Absolute Lymphs (auto) 2.27 (1.18-3.74) x10^3/uL Absolute Monos (auto) 0.65 (0.24-0.86) x10^3/uL Absolute Nucleated RBC 0.00 (0.00-0.012) x10^3u/L Lymphocytes % 30.2 (19.3-51.7) % Monocytes % 8.7 (4.7-12.5) % Eosinophils % 2.3 (0.7-5.8) % Basophils % 0.5 (0.1-1.2) % Absolute Granulocytes 4.35 (1.56-6.13) x10^3/uL Basophils # 0.04 (0.01-0.08) x10^3/uL D-Dimer (0.0-0.50) mg/L Sodium 142 (135-145) mmol/L Potassium 3.4 L (3.5-5.1) mmol/L Chloride 108 H (98-107) mmol/L Carbon Dioxide 24 (22-30) mmol/L Anion Gap 12.6 (5-15) MEQ/L BUN 19 H (7-17) mg/dL Creatinine 0.58 (0.52-1.04) mg/dL Estimated GFR 126.3 ML/MIN Glucose 110 H (74-106) mg/dL Calcium 8.9 (8.4-10.2) mg/dL Magnesium 1.9 (1.6-2.3) mg/dL Total Bilirubin 2.00 H (0.2-1.3) mg/dL AST 37 H (14-36) U/L ALT 18 (0-35) U/L Alkaline Phosphatase 31 L (38-126) U/L Troponin I (0.000-0.033) ng/mL NT-Pro-B Natriuret Pep 50.0 (<300) pg/mL Serum Total Protein 6.7 (6.3-8.2) g/dL Albumin 4.0 (3.5-5.0) g/dL Serum HCG, Qual (NEGATIVE) - Progress Progress: improved, re-examined Air Movement: good Progress Note: 05/15/24 15:43 28 years old is evaluated in the ER for left anterior lower chest pain and some difficulty breathing going on for the last 3 months. Patient EKG is normal sinus rhythm, no ST elevations. Bilateral equal breath sounds. Given DuoNeb, feeling much better on reevaluation. Chest x-ray negative for any acute cardiopulmonary findings by me, official report is pending. Workup showed normal white count, chemistries with negative troponins and negative D-dimers. Has mild elevation in transaminases and total bili of 2.0. Patient does not have any right upper quadrant tenderness. Patient pain has some element of reproducibility with palpation, could be musculoskeletal/pleurisy. I would put her on short course of steroid and albuterol inhaler. I do not think patient needs second troponin with duration of pain going on. Low heart score. Stable for discharge with outpatient follow-up. Discussed signs symptoms of worsening needing return to ER which she seems understanding. Blood Culture(s) Obtained: No Antibiotics given: No Counseled pt/family regarding: lab results, diagnosis, need for follow-up, rad results Medical Desision Making - Independent Historian Additional History obtained from: Spouse - Diagnostic Testing Diagnostic test were ordered, analyzed, and reviewed by me: Yes Radiological Interpretation: Interpreted by me, Reviewed by me - Risk of complications The pt has a mod risk of morbidity or mortality based on: Need for prescription drug management - Departure Departure Disposition: Home Clinical Impression: Nonspecific chest pain Condition: Stable Critical Care Time: No Referrals: DOCTOR,NO FAMILY [Primary Care Provider] - Follow up/PCP as directed LIZY SIGALA MD [ACTIVE STAFF] - Follow up/PCP as directed (Call for ap pointment) Instructions: Shortness of Breath (Dyspnea) (DC) Additional Instructions: Do not smoke. Take Tylenol/ibuprofen as needed. Use inhaler as recommended. Follow-up with primary care for reevaluation. Return to ER for any worsening. Prescriptions: Albuterol Sulfate [Albuterol Sulfate Hfa] 8.5 gm IH Q6H PRN 7 Days #1 inh PRN Reason: Cough Prednisone 20 mg [Deltasone 20 mg] 60 mg PO DAILY 5 Days #15 tablet
--- NOTE | 2024-05-15 19:11 | XRAY ---
Indication: Short of breath. Comparison: July 12, 2022 Portable chest demonstrates normal heart and lungs. Bony thorax intact with minimal double curvature scoliosis. No acute findings.
== END 2024-05-15 15:57 | disposition home or self-care (01) ==
LOC: ED 13:19
DX: R07.9 Chest pain, unspecified (principal); R06.02 Shortness of breath; Z79.52 Long term (current) use of systemic steroids; Z72.0 Tobacco use
CPT/HCPCS: 36415; 71045; 80053; 83735; 83880; 84484; 84703; 85025; 85379; 94640; 99283; A9270-GY

== ENCOUNTER 2024-11-28 15:58 | Emergency (ER) | payer OTHER ==
--- NOTE | 2024-11-28 16:15 | ERPHSYRPT ---
- History of Present Illness Time Seen by Provider: 11/28/24 16:15 Source: patient, family Exam Limitations: no limitations Physician History: This is a 29-year-old white female patient who presents with productive cough for 3 to 4 days. Patient states she is bringing up yellowish sputum with coughing. She is also had associated headache, body aches and sore throat. She has got lung pain as well with deep breath only. Patient's room air oxygen saturation level is 100%. She is afebrile. She has stable other vital signs. She does not have chest pain. She has no abdominal pain. She has had no nausea vomiting or diarrhea symptoms. Timing/Duration: day(s) (3 to 4 days), worse Cough Quality/Degree: mild, productive cough, sputum (Yellow) Possible Cause: occasional episodes Modifying Factors: Improves With: coughing Associated Symptoms: chest pain/soreness (With coughing), cough, muscle aches, sore throat Allergies/Adverse Reactions: No Known Drug Allergies Allergy (Verified 11/28/24 16:20) Hx Tetanus, Diphtheria Vaccination/Date Given: Yes Hx Influenza Vaccination/Date Given: No Hx Pneumococcal Vaccination/Date Given: No Travel Risk - International Travel Have you traveled outside of the country in past 3 weeks: No - Emerging Infectious Disease Are you exhibiting symptoms associated with any current EIDs: Yes Symptoms: Cough: New Onset, Headaches/Body Aches/ - Review of Systems Constitutional: No Symptoms Eyes: No Symptoms Ears, Nose, & Throat: Throat Pain Respiratory: Cough Cardiac: No Symptoms Abdominal/Gastrointestinal: No Symptoms Genitourinary Symptoms: No Symptoms Musculoskeletal: Arthralgias, Myalgias Skin: No Symptoms Neurological: No Symptoms Psychological: No Symptoms Endocrine: No Symptoms Hematologic/Lymphatic: No Symptoms Immunological/Allergic: No Symptoms All Other Systems: Reviewed and Negative - Past Medical History Pertinent Past Medical History: Yes Neurological History: No Pertinent History ENT History: No Pertinent History Cardiac History: No Pertinent History Respiratory History: No Pertinent History Endocrine Medical History: No Pertinent History Musculoskeletal History: No Pertinent History GI Medical History: No Pertinent History History: No Pertinent History Psycho-Social History: No Pertinent History Female Reproductive Disorders: Other Other Medical History: left fallopian tube removed d/t ectopic . spontaneous pnuemo - Past Surgical History Past Surgical History: Yes Neuro Surgical History: No Pertinent History Cardiac: No Pertinent History Respiratory: No Pertinent History Gastrointestinal: No Pertinent History Genitourinary: No Pertinent History Musculoskeletal: No Pertinent History Female Surgical History: Tubal Ligation Other Surgical History: tubal in november- took lt tube out, drained cyst on rt ovary - Female History Hx Last Menstrual Period: 2 weeks ago - Social History Smoking Status: Current every day smoker How long have you smoked: 10yrs Exposure to second hand smoke: Yes Drug Use: none Patient Lives Alone: No - Social Determinants of Health Will the patient participate in the screening: Declined to provide - Nursing Vital Signs Nursing Vital Signs: Initial Vital Signs Temperature 97.8 F 11/28/24 16:10 Pulse Rate 77 11/28/24 16:10 Blood Pressure 118/47 11/28/24 16:10 O2 Sat by Pulse Oximetry 100 11/28/24 16:10 Pain Scale Pain Intensity 6 - Physical Exam General Appearance: no apparent distress, alert, anxiety, thin Eye Exam: PERRL/EOMI, eyes nml inspection Ears, Nose, Throat Exam: normal ENT inspection, moist mucous membranes Neck Exam: normal inspection, non-tender, supple, full range of motion Respiratory Exam: normal breath sounds, lungs clear, airway intact, No chest tenderness, No respiratory distress Cardiovascular Exam: regular rate/rhythm, normal heart sounds, normal peripheral pulses Gastrointestinal/Abdomen Exam: soft, normal bowel sounds, No tenderness Pelvic Exam: not done Rectal Exam: not done Back Exam: normal inspection, normal range of motion, No CVA tenderness, No vertebral tenderness Extremity Exam: normal inspection, normal range of motion, pelvis stable Neurologic Exam: alert, oriented x 3, cooperative, senior erp consultant II-XII nml as tested, nml cerebellar function, nml station & gait, sensation nml Skin Exam: normal color, warm, dry Lymphatic Exam: No adenopathy SpO2 Interpretation: normal O2 Delivery: Room Air - Course Nursing assessment & vital signs reviewed: Yes Ordered Tests: Active Orders 24 hr Category Date Time Status CHEST 1 VIEW (PORTABLE) Stat Exams 11/28/24 16:51 Taken HCG QUALITATIVE, URINE Stat Lab 11/28/24 17:15 Completed Lab/Rad Data: Laboratory Results 11/28/24 11/28/24 11/28/24 Range/Units 17:15 16:51 16:50 Urine HCG, Qual NEGATIVE (NEGATIVE) Influenza Type A Ag NEGATIVE (NEGATIVE) Influenza Type B Ag NEGATIVE (NEGATIVE) RSV (PCR) NEGATIVE (NEGATIVE) SARS-CoV-2 (PCR) NEGATIVE (NEGATIVE) Group A Strep Antibody NOT DETECTED (NEGATIVE) - Progress Progress: improved, re-examined Air Movement: good Progress Note: 11/28/24 17:47 My medical decision making and the assignment of low to moderate complexity of this patient's medical issue today is based on review of the patient's past medical history, review the patient's medication list, reviewed patient drug allergy list, history present illness and physical findings on examination. The workup in this patient includes viral swabs and group A strep test. In addition we ordered a test and performed a chest x-ray. Differential diagnosis includes but is not limited to upper respiratory infection, pneumonia, bronchitis, pharyngitis, viral illness. I interpreted the patient's laboratory data results. Based on the laboratory data results, the patient does not have an acute, emergent medical issue. I interpreted the patient's preliminary chest x-ray report. I do not see a pneumothorax. There is no other acute cardiopulmonary process. This patient has had symptoms for 3 to 4 days. They are not improving. She has a constellation of symptoms including cough with productive yellowish sputum as well as sore throat. I think the patient will benefit from steroids, short-term antibiotic treatment and a cough suppressant. Blood Culture(s) Obtained: No Antibiotics given: Yes Counseled pt/family regarding: lab results, diagnosis, need for follow-up, rad results Medical Desision Making - Independent Historian Additional History obtained from: Spouse - Diagnostic Testing Diagnostic test were ordered, analyzed, and reviewed by me: Yes Radiological Interpretation: Interpreted by me, Teleradiologist Report - Departure Departure Disposition: Home Clinical Impression: Upper respiratory infection Condition: Stable Critical Care Time: No Referrals: DOCTOR,NO FAMILY [Primary Care Provider] - Follow up/PCP as directed Additional Instructions: Drink plenty of fluids. Avoid exposure to any type of smoke. Take your prescriptions as prescribed. Call your primary care provider on 12/01/2024, to make arrangements for follow-up appointment and to be seen in the next 5 to 7 days. Prescriptions: Benzonatate 200 mg PO TID PRN #10 cap PRN Reason: Cough Prednisone 10 mg [Deltasone 10 mg] 10 mg PO TID #12 tablet Azithromycin 250 mg [Zithromax 250 MG TABLET] 250 mg PO ZPACK #6 tablet
[2024-11-28 16:20] VITALS: PULSE 77; TEMP 97.8; O2SAT 100
[2024-11-28 17:22] LABS: HCG URINE TEST NEGATIVE (NEGATIVE)
[2024-11-28 17:37] LABS: INFLUENZA A NEGATIVE (NEGATIVE); INFLUENZA B NEGATIVE (NEGATIVE); RESPIRATORY SYNCTIAL VIRUS NEGATIVE (NEGATIVE); SARS-CoV-2 Xpert Express NEGATIVE (NEGATIVE)
[2024-11-28] MEDS ORDERED: Tessalon Perles 100 MG PO ONE (17:52)
[2024-11-28] MEDS ORDERED: XYLOCAINE 1% HCL 20 ML MDV ONE (17:52)
[2024-11-28] MEDS ORDERED: DELTASONE 20 MG ONE (17:52)
[2024-11-28] MEDS ORDERED: Rocephin 1000 MG INJ ONE (17:52)
[2024-11-28 17:53] VITALS: BP 117/80
[2024-11-28] MEDS: DELTASONE 20 MG PO ONE (17:56)
[2024-11-28] MEDS: Tessalon Perles 100 MG PO ONE (17:56)
[2024-11-28] MEDS: Rocephin 1000 MG INJ IM ONE (17:56)
--- NOTE | 2024-11-28 22:10 | XRAY ---
Indication: Cough. Comparison: May 15, 2024 Portable chest again demonstrates normal heart and lungs. Bony thorax intact. No new/acute findings.
== END 2024-11-28 18:22 | disposition home or self-care (01) ==
LOC: ED 15:58
DX: J06.9 Acute upper respiratory infection, unspecified (principal); R05.1 Acute cough; R51.9 Headache, unspecified; M79.10 Myalgia, unspecified site; J02.9 Acute pharyngitis, unspecified; Z79.52 Long term (current) use of systemic steroids; Z79.899 Other long term (current) drug therapy; Z72.0 Tobacco use
CPT/HCPCS: 0241U; 71045; 81025; 87651; 96372; 99285; 99284; J0696; A9270-GY